=== PATIENT | male | born 1980 | race Caucasian/White ===

== ENCOUNTER 2018-08-15 05:55 | Emergency (ER) | payer SELFPAY ==
[2018-08-15 05:56] VITALS: BP 141/94; PULSE 111; RESP 18; TEMP 38.3; O2SAT 95; BMI 19.5
--- NOTE | 2018-08-15 06:10 | EKG12_ITS ---
Test Reason : CP Blood Pressure : / mmHG Vent. Rate : 115 BPM Atrial Rate : 115 BPM P-R Int : 132 ms QRS Dur : 070 ms QT Int : 242 ms P-R-T Axes : 076 082 073 degrees QTc Int : 334 ms Sinus tachycardia Possible Left atrial enlargement Nonspecific T wave abnormality Abnormal ECG Confirmed by JILLIAN JENSEN, VERA ([id number]), assistant production editor ROCÍO PUENTE ([id number]) on 08/17/2018 9:26:36 AM Referred By: PATRICIA Confirmed By:VERA WALSH MD
--- NOTE | 2018-08-15 06:11 | RAD_ITS ---
STUDY: X-RAY CHEST REASON FOR EXAM: Male, 38 years old. Chest pain and shortness of breath TECHNIQUE: PA and lateral views of the chest. COMPARISON: None. FINDINGS: The lungs are mildly hyperinflated. Lungs are clear. There is no demonstrated pleural abnormality. Normal size heart. Normal mediastinum and ismael. Normal visualized pulmonary arteries. Normal visualized aortic arch and descending thoracic aorta. Normal visualized thoracic spine. Normal visualized ribs, clavicles, and shoulders. There is no demonstrated abnormality of the visualized soft tissue structures of the upper abdomen. RAD/Chest PA and Lateral IMPRESSION: Mildly hyperinflated lungs. No acute airspace disease. Electronically Signed: Roman Myers DO at 6:57 EDT Tel , Service support ,
--- NOTE | 2018-08-15 06:13 | ED.RN ---
NO OLD EKGS
[2018-08-15] MEDS: Acetaminophen 500 MG Tablet 1000 MG PO (06:15)
--- NOTE | 2018-08-15 06:17 | ED.DCSUM_ITS ---
- ER Visit Summary Date of Service: 08/15/18 Chief Complaint: Chest pain History of Present Illness: The patient is a 38 M who presents with chest pain. History is limited as he appears to be under the influence of illicit drugs. He does state that he smoked a blunt. He states that this was sprinkled. He is unsure what else was with this but he states he thinks it was an upper. He was found sleeping on someone's porch. He then complained of chest pain. He states that he has a history of chest pain my whole life. This is been worse for 3 years. It is sharp. It is sometimes worse with a deep breath. It is in the center of his chest. He also complains of shortness of breath. He also states I don't feel good. He is unable to give further history regarding recent illness except that recently he generally has not felt well. He was able to tell me that he has felt like he has had a fever and has had some cough. When asked if he has been sick he said like the flu but did not really provide further specific symptoms. Physical Examination: Temperature 100.9 heart rate 111 blood pressure 141/94 pulse ox 95% Moist mucous membranes Neck supple Heart regular tachycardia Lungs are clear Abdomen soft He is alert he is oriented to month year person place but appears confused Pressured mumbling speech Test Results: EKG shows sinus rhythm at a rate of 115. Chest x-ray on my review shows no acute process, radiology read pending. Labs including CBC BMP troponin normal. Urine drug screen ordered, pending. Emergency Department Course and Treatment: Patient was given Tylenol for fever. This could be due to infectious process given that he does report some recent flulike illness or may be related to agitation from stimulant use. He does not have a leukocytosis. His chest x-ray does not show patient will be signed out to the oncoming physician for reevaluation. I believe as long as his mental status improves he can likely be discharged after period of observation. Treatment Plan: [] Disposition: Pending reevaluation Impression: Chest pain Drug abuse This note was generated with [employer] software. It may contain incorrect words, spelling, and punctuation that were not noted in review of the chart prior to signing
[2018-08-15 06:27] VITALS: BP 142/88; PULSE 115; RESP 19; O2SAT 97
[2018-08-15 06:30] LABS: Absolute Lymphocyte Count 1.56 X10^3/ul (0.83-4.51); Absolute Neutrophil Count 8.9 X10^3/uL (2.0-7.7); Basophil# 0.02 X10^3/uL; Basophil% 0.2 % (0-1); Hematocrit 41.3 % (40-54); Hemoglobin 14.4 g/dl (13.0-16.5); Lymphocyte # 1.56 X10^3/ul (4.0); Lymphocyte % 14.6 % (19-41); Mean Corp Hgb Conc 34.9 g/gl (32-36); Mean Corpuscular Hgb 32.1 pg (27.0-32.0); Mean Corpuscular Volume 92.2 fL (80-94); Mean Platelet Vol. 8.8 fl (6.2-12.0); Monocyte# 0.19 X10^3/uL; Monocyte% 1.8 % (0-10); Neutrophil # 8.92 X10^3/uL (2.7-7.7); Neutrophil % 83.3 % (47-70); Platelet Count 234 K/mm3 (150-450); RBC Distribution Width CV 12.6 % (11.6-14.6); RBC Distribution Width SD 42.6 fl (35.1-43.9); Red Blood Count 4.48 M/mm3 (4.6-6.2); White Blood Count 10.7 K/mm3 (4.4-11.0)
[2018-08-15 06:31] LABS: POSITIVE COUNT NO; POSITIVE DIFFERENTIAL NO; POSITIVE MORPHOLOGY NO
[2018-08-15 06:45] LABS: Anion Gap 11 (5-15); BUN 23 mg/dL (7-18); BUN/Creat Ratio 22.5 RATIO (10-20); Calcium,Total 8.7 mg/dL (8.5-10.1); Chloride 103 mmol/L (98-107); Creatinine, Serum 1.02 mg/dL (0.70-1.30); EST Glomerular Filtration Rate 86 mL/min (>60); Est Glom Filt Rate - Afr Amer 105 mL/min (>60); Estimated Creatinine Clearance 75.78 ml/min; Glucose 91 mg/dL (74-106); Potassium 3.5 mmol/L (3.5-5.1); Sodium Level 140 mmol/L (136-145)
--- NOTE | 2018-08-15 06:52 | ED.DEP ---
ED Disposition - Plan for ED Patient: Instructions: ED Chest Pain NonCardiac, ED Drug Abuse General Referrals: Care Physician,No Primary [Primary Care Provider] -
[2018-08-15 07:11] VITALS: BP 112/78; PULSE 105; RESP 23; O2SAT 96
[2018-08-15 07:33] VITALS: TEMP 37.3
[2018-08-15 08:00] VITALS: BP 110/76; PULSE 100; RESP 22; O2SAT 98
[2018-08-15 08:58] VITALS: BP 113/77; PULSE 96; RESP 23; O2SAT 99
== END 2018-08-15 09:03 | disposition home or self-care (01) ==
PROVIDERS: Emergency Provider Emergency Medicine
DX: R07.9 Chest pain, unspecified (principal); R11.0 Nausea; R05 Cough; R06.00 Dyspnea, unspecified; Z72.0 Tobacco use; F19.10 Other psychoactive substance abuse, uncomplicated
CPT/HCPCS: 71046; 80048; 84484; 85025; 93005; 99285; A4216

== ENCOUNTER 2018-08-18 22:49 | Inpatient (IN) | payer SELFPAY ==
[2018-08-18 22:49] VITALS: BP 114/62; PULSE 109; RESP 16; TEMP 38; O2SAT 97; BMI 19.5
--- NOTE | 2018-08-18 23:04 | CT_ITS ---
HISTORY: PT STATED CHEST PAIN WORSE ON LEFT SIDE TECHNIQUE: Helically acquired images were obtained of the chest following IV contrast as per pulmonary angiogram protocol with 3D reconstructions. A radiation dose optimization technique was used for this scan. IV Contrast dosage and agent: 100 cc Isovue-370 contrast COMPARISON: Two-view chest 08/15/2018 FINDINGS: The main, segmental, and visualized subsegmental pulmonary arteries show normal opacification and appearance. No PE. Thoracic aorta is normal in caliber without evidence of aneurysm or dissection. No pericardial effusion. With comparison to recent chest x-ray, interval worsening with development of left lower lobe large infiltrate with consolidation and right middle lobe moderate infiltrate. Additional right lower lobe and lingular segment small infiltrates. No pleural effusion seen. Bilateral hilar mildly enlarged lymph nodes, more so on the left in keeping with reactive nodes. No axillary lymph enlargement. Bones: No acute osseous abnormality. CT/CTA Chest W/WO Contrast IMPRESSION: 1. New onset bilateral pulmonary infiltrates including left lower lobe large infiltrate with consolidation. 2. No PE. 3. Infiltrates should be followed to radiographic resolution. Individualized dose optimization techniques were used for this CT. at 0129 Reported and signed by: Kiran Ragsdale MD Electronically Signed: Kiran Ragsdale, at 1:28 EDT Tel , Service support ,
[2018-08-18 23:45] LABS: Absolute Lymphocyte Count 0.99 X10^3/ul (0.83-4.51); Absolute Neutrophil Count 14.3 X10^3/uL (2.0-7.7); Basophil# 0.03 X10^3/uL; Basophil% 0.2 % (0-1); Eosinophil# 0.01 X10^3/uL; Eosinophils% 0.1 % (0-5); Hemoglobin 13.5 g/dl (13.0-16.5); Lymphocyte # 0.99 X10^3/ul (4.0); Mean Corp Hgb Conc 34.6 g/gl (32-36); Mean Corpuscular Hgb 32.1 pg (27.0-32.0); Mean Corpuscular Volume 92.9 fL (80-94); Mean Platelet Vol. 9.6 fl (6.2-12.0); Monocyte# 1.01 X10^3/uL; Monocyte% 6.2 % (0-10); Platelet Count 284 K/mm3 (150-450); RBC Distribution Width CV 12.3 % (11.6-14.6); RBC Distribution Width SD 40.8 fl (35.1-43.9); White Blood Count 16.4 K/mm3 (4.4-11.0)
[2018-08-18] MEDS: Ondansetron 4 MG/2 ML Vial IV (23:51)
[2018-08-18] MEDS: Morphine 4 MG/ML Syringe IV (23:52)
[2018-08-19] VITALS (9 sets, daily range): BP systolic 98–110; BP diastolic 53–68; PULSE 86–98; RESP 16–18; TEMP 36.8–36.9; O2SAT 95–99; BMI 18.8
[2018-08-19 00:05] LABS: POSITIVE COUNT NO; POSITIVE DIFFERENTIAL NO; POSITIVE MORPHOLOGY YES
[2018-08-19 00:06] LABS: Differential Indicated SCAN CRITERIA MET
[2018-08-19 00:13] LABS: Anion Gap 7 (5-15); BUN 14 mg/dL (7-18); BUN/Creat Ratio 16.7 RATIO (10-20); Calcium,Total 8.8 mg/dL (8.5-10.1); Chloride 101 mmol/L (98-107); Creatinine, Serum 0.84 mg/dL (0.70-1.30); EST Glomerular Filtration Rate 108 mL/min (>60); Est Glom Filt Rate - Afr Amer 131 mL/min (>60); Estimated Creatinine Clearance 91.96 ml/min; Glucose 101 mg/dL (74-106); Potassium 3.4 mmol/L (3.5-5.1); Sodium Level 136 mmol/L (136-145)
[2018-08-19 00:30] LABS: Reactive Lymphocyte RARE
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
[2018-08-19] MEDS: Ceftriaxone 1 GM/50 ML BAG IV ×3 (02:59→21:03)
[2018-08-19 03:35] LABS: Lactic Acid 0.8 mmol/L (0.4-2.0)
[2018-08-19] MEDS: Acetaminophen 500 MG Tablet PO ×3 (06:14→23:33)
[2018-08-19] MEDS: Potassium Chloride 40 MEQ in 0.9% Normal Saline 1,000 ML 100 MEQ IV (06:14)
[2018-08-19] MEDS: guaiFENesin 1,200 MG Tablet 1200 MG PO ×2 (06:15→21:08)
[2018-08-19 06:32] LABS: Absolute Lymphocyte Count 1.68 X10^3/ul (0.83-4.51); Absolute Neutrophil Count 9.5 X10^3/uL (2.0-7.7); Basophil# 0.02 X10^3/uL; Basophil% 0.2 % (0-1); Eosinophil# 0.05 X10^3/uL; Eosinophils% 0.4 % (0-5); Hematocrit 33.1 % (40-54); Hemoglobin 11.6 g/dl (13.0-16.5); Lymphocyte # 1.68 X10^3/ul (4.0); Lymphocyte % 13.7 % (19-41); Mean Corpuscular Volume 91.4 fL (80-94); Mean Platelet Vol. 9.4 fl (6.2-12.0); Monocyte# 0.93 X10^3/uL; Monocyte% 7.6 % (0-10); Neutrophil # 9.54 X10^3/uL (2.7-7.7); Neutrophil % 77.9 % (47-70); Platelet Count 220 K/mm3 (150-450); RBC Distribution Width CV 12.6 % (11.6-14.6); RBC Distribution Width SD 42.6 fl (35.1-43.9); Red Blood Count 3.62 M/mm3 (4.6-6.2); White Blood Count 12.3 K/mm3 (4.4-11.0)
[2018-08-19 06:40] LABS: POSITIVE COUNT NO; POSITIVE DIFFERENTIAL NO; POSITIVE MORPHOLOGY NO
[2018-08-19] MEDS: Ipratropium/Albuterol Sulfate 3 ML AMPUL.NEB INHALATION ×3 (07:26→19:22)
[2018-08-19] MEDS: oxyCODONE 5 MG Tablet PO ×3 (09:23→23:33)
[2018-08-20] VITALS (8 sets, daily range): BP systolic 104–123; BP diastolic 66–77; PULSE 92–104; RESP 16–20; TEMP 36.7–37.1; O2SAT 96–100
[2018-08-20] MEDS: Ipratropium/Albuterol Sulfate 3 ML AMPUL.NEB INHALATION ×4 (01:25→18:42)
[2018-08-20] MEDS: Acetaminophen 500 MG Tablet PO ×3 (05:35→23:45)
[2018-08-20] MEDS: oxyCODONE 5 MG Tablet PO (05:35)
[2018-08-20 06:17] LABS: Hematocrit 33.7 % (40-54); Hemoglobin 11.3 g/dl (13.0-16.5); Mean Corp Hgb Conc 33.5 g/gl (32-36); Mean Corpuscular Hgb 31.4 pg (27.0-32.0); Mean Corpuscular Volume 93.6 fL (80-94); Platelet Count 297 K/mm3 (150-450); RBC Distribution Width CV 12.3 % (11.6-14.6); RBC Distribution Width SD 40.7 fl (35.1-43.9); White Blood Count 9.9 K/mm3 (4.4-11.0)
[2018-08-20 06:36] LABS: Anion Gap 6 (5-15); BUN 6 mg/dL (7-18); BUN/Creat Ratio 11.5 RATIO (10-20); Calcium,Total 8.2 mg/dL (8.5-10.1); Chloride 107 mmol/L (98-107); Creatinine, Serum 0.52 mg/dL (0.70-1.30); EST Glomerular Filtration Rate 186 mL/min (>60); Est Glom Filt Rate - Afr Amer 225 mL/min (>60); Estimated Creatinine Clearance 143.51 ml/min; Glucose 103 mg/dL (74-106); Potassium 3.7 mmol/L (3.5-5.1); Sodium Level 139 mmol/L (136-145)
[2018-08-20 06:40] LABS: Scan Indicated on CBC? Y/N NO
--- NOTE | 2018-08-20 07:51 | PCM.PN.HOSP ---
Patient Problems: Active and Suspected Problems (Last Updated 08/19/18 @ 08:21 by Joaquin Dejesus MD) Community acquired pneumonia (Acute) Subjective: Patient with continued pleuritic discomfort, fevers however this is improved since initial presentation. Patient ambulating the halls with some coughing but no market desaturations. Discussed patient case with CM/SW, not able to be at the [facility] or other facility secondary to prior behavioral issues and currently on probation therefore not able to leave the state. Sputum culture currently pending with prelim staph aureus thus initial plan for discharge held in case MRSA pneumonia although WBC has improved and clinical presentation has improved with current regimen. Patient denies fevers, chills, nausea, emesis, abdominal pain. Objective: Physical Examination: General: awake, alert, oriented x 3 and cooperative, seated upright in bed in no apparent distress, fatigued appearing, warm to touch. Skin: Flushed color, turgor, no icterus, cyanosis. HEENT: AT/NC, EOMI, PERRLA, dry MM. Lungs: Diminished BS BL, mildly rhonchorous BL bases, moderate effort, no rales or wheezing. Heart: Regular rate and rhythm; no gallop, rub audible. Abdomen: soft, NTTP, ND, normal BS. Extremities: no cyanosis, clubbing, or edema. Neurological: patient awake, alert, oriented x 3; cognitive function intact; pupils equally reactive to light and accomodation; cranial nerves II-XII grossly normal, moving all 4 extremities, no focal deficits, strength moderately globally decreased secondary to acute presentation. Psychiatric: affect appears fatigued, no acute evidence of depressive or anxiety feelings. Vitals/I&O's: Vital Signs Temp Pulse Resp BP Pulse Ox 98.1 F 96 16 104/67 98 08/20/18 02:35 08/20/18 06:46 08/20/18 06:46 08/20/18 02:35 08/20/18 06:46 Oxygen Delivery Method Room Air Weight: 117 lb 4.575 oz Body Mass Index (BMI) 18.8 Intake and Output for Last 24 Hours 08/18/18 08/19/18 08/20/18 23:59 23:59 23:59 Intake Total 2347 / 2347 240 / 240 Balance 2347 / 2347 240 / 240 Microbiology Past 72 Hours 08/19/18 16:51 Urine, Clean Catch Streptococcus pneumoniae Antigen (M - Final 08/19/18 16:51 Urine, Clean Catch Legionella Antigen - Final 08/19/18 14:35 Sputum, Expectorated/Coughed Gram Stain - Final Laboratory Results 08/20/18 05:55: WBC 9.9, RBC 3.60 L, Hgb 11.3 L, Hct 33.7 L, MCV 93.6, MCH 31.4, MCHC 33.5, RDW 12.3, RDW Differential 40.7, Plt Count 297, MPV 9.0 08/20/18 05:55: Sodium 139, Potassium 3.7, Chloride 107, Carbon Dioxide 26.0, Anion Gap 6, BUN 6 L, Creatinine 0.52 L, Estim Creat Clear Calc 143.51, Est GFR (MDRD) Af Amer 225, Est GFR (MDRD) Non-Af 186, BUN/Creatinine Ratio 11.5, Glucose 103, Calcium 8.2 L Current Medications Acetaminophen (Tylenol) 500 mg PO Q6 [facility] Last Admin: 08/20/18 05:35 Dose: 500 mg Albuterol Sulfate (Ventolin Aerosols) 2.5 mg INHALATION Q2H PRN PRN PRN Reason: SHORTNESS OF BREATH Albuterol/Ipratropium (Duoneb) 3 ml INHALATION Q6H.RT [facility] Last Admin: 08/20/18 06:46 Dose: 3 ml Bisacodyl (Dulcolax) 5 mg PO DAILY PRN PRN PRN Reason: Constipation Guaifenesin (Mucinex) 1,200 mg PO BID [facility] Last Admin: 08/19/18 21:08 Dose: 1,200 mg Azithromycin 500 mg/ Dextrose 255 mls @ 250 mls/hr IV Q24@2200 [facility] Stop: 08/21/18 23:02 Last Admin: 08/19/18 22:18 Dose: 250 mls/hr Ceftriaxone Sodium (Rocephin) 1 gm in 50 mls @ 100 mls/hr IV Q12 [facility] Last Admin: 08/19/18 21:03 Dose: 100 mls/hr Magnesium Hydroxide (Milk Of Magnesia) 30 ml PO DAILY PRN PRN PRN Reason: Constipation Nicotine (Nicoderm Cq (Pbkc)) 14 mg TRANSDERM. DAILY [facility] Last Admin: 08/19/18 11:42 Dose: 14 mg Ondansetron HCl (Zofran) 4 mg IV Q8H PRN PRN PRN Reason: NAUSEA Oxycodone HCl (Oxyir) 5 mg PO Q6H PRN PRN PRN Reason: SEVERE PAIN (6-10/10) Last Admin: 08/20/18 05:35 Dose: 5 mg Sodium Chloride () 5 - 15 ml IV UD PRN PRN Reason: SALINE FLUSH Medical Necessity - Tobacco Use Smoking Status: Current every day smoker Tobacco Use: Cigarettes Assessment/Plan All Active Problems (Last Updated 08/19/18 @ 08:21 by Joaquin Dejesus MD) Community acquired pneumonia (Acute) The patient is a 38 y/o M w/ PMHx: Tobacco use, Cannabis Use, Hx HTN no on regimen, Homeless who presents to the [facility] ED on 08/20/18 with history of progressively worsening chest discomfort starting approximately 3 days ago, substernal, 8 out of 10 in severity, nonradiating, worse with movement, increased respiratory effort and with coughing, productive cough, fever, chills, malaise and decreased appetite. (1) Acute Sepsis secondary to BL LE Possible GP Organism, Community Acquired Pneumonia: CTPA w/ new onset bilateral pulmonary infiltrates including left lower lobe large infiltrate with consolidation, no evidence of PE. Admission CBC w/ WBC 16.4 with L shift. Admitted to PCU as MS, maintain on oxygen with wean as tolerated to room air, continue ATC duonebs, PRN albuterol, maintained on IV Rocephin and Azithromycin, HOB, IS parameters w/ pending sputum cultures however preliminary with GP organism and with history of polysubstance abuse concerns for possible MRSA, will defer discharge initially planned for today given clinical improvement to await cx, negative urine antigens. Bld cx x 2 obtained in the ED. (2) Hypokalemia: Admission K+ 3.4, supplementation given, repeat level corrected, 3.7. (3) Tobacco Abuse: Encouraged cessation, inpatient consultation per RT, NR if desired. (4) Polysubstance abuse: CM Consulted for homelessness and history of polysubstance abuse, hepatitis panel and HIV pending. (5) DVT Prophylaxis: Low risk, ambulation. Code Visit Inpatient E&M: 60894 Subs Hosp L2
--- NOTE | 2018-08-20 07:56 | PN_ITS ---
Patient Problems: Active and Suspected Problems (Last Updated 08/19/18 @ 08:21 by Joaquin Dejesus MD) Community acquired pneumonia (Acute) Subjective: Patient with continued pleuritic discomfort, fevers however this is improved since initial presentation. Patient ambulating the halls with some coughing but no market desaturations. Discussed patient case with CM/SW, not able to be at the [facility] or other facility secondary to prior behavioral issues and currently on probation therefore not able to leave the state. Sputum culture currently pending with prelim staph aureus thus initial plan for discharge held in case MRSA pneumonia although WBC has improved and clinical presentation has improved with current regimen. Patient denies fevers, chills, nausea, emesis, abdominal pain. Objective: Physical Examination: General: awake, alert, oriented x 3 and cooperative, seated upright in bed in no apparent distress, fatigued appearing, warm to touch. Skin: Flushed color, turgor, no icterus, cyanosis. HEENT: AT/NC, EOMI, PERRLA, dry MM. Lungs: Diminished BS BL, mildly rhonchorous BL bases, moderate effort, no rales or wheezing. Heart: Regular rate and rhythm; no gallop, rub audible. Abdomen: soft, NTTP, ND, normal BS. Extremities: no cyanosis, clubbing, or edema. Neurological: patient awake, alert, oriented x 3; cognitive function intact; pupils equally reactive to light and accomodation; cranial nerves II-XII grossly normal, moving all 4 extremities, no focal deficits, strength moderately globally decreased secondary to acute presentation. Psychiatric: affect appears fatigued, no acute evidence of depressive or anxiety feelings. Vitals/I&O's: Vital Signs Temp Pulse Resp BP Pulse Ox 98.1 F 96 16 104/67 98 08/20/18 02:35 08/20/18 06:46 08/20/18 06:46 08/20/18 02:35 08/20/18 06:46 Oxygen Delivery Method Room Air Weight: 117 lb 4.575 oz Body Mass Index (BMI) 18.8 Intake and Output for Last 24 Hours 08/18/18 08/19/18 08/20/18 23:59 23:59 23:59 Intake Total 2347 / 2347 240 / 240 Balance 2347 / 2347 240 / 240 Microbiology Past 72 Hours 08/19/18 16:51 Urine, Clean Catch Streptococcus pneumoniae Antigen (M - Final 08/19/18 16:51 Urine, Clean Catch Legionella Antigen - Final 08/19/18 14:35 Sputum, Expectorated/Coughed Gram Stain - Final Laboratory Results 08/20/18 05:55: WBC 9.9, RBC 3.60 L, Hgb 11.3 L, Hct 33.7 L, MCV 93.6, MCH 31.4, MCHC 33.5, RDW 12.3, RDW Differential 40.7, Plt Count 297, MPV 9.0 08/20/18 05:55: Sodium 139, Potassium 3.7, Chloride 107, Carbon Dioxide 26.0, Anion Gap 6, BUN 6 L, Creatinine 0.52 L, Estim Creat Clear Calc 143.51, Est GFR (MDRD) Af Amer 225, Est GFR (MDRD) Non-Af 186, BUN/Creatinine Ratio 11.5, Glucose 103, Calcium 8.2 L Current Medications Acetaminophen (Tylenol) 500 mg PO Q6 [facility] Last Admin: 08/20/18 05:35 Dose: 500 mg Albuterol Sulfate (Ventolin Aerosols) 2.5 mg INHALATION Q2H PRN PRN PRN Reason: SHORTNESS OF BREATH Albuterol/Ipratropium (Duoneb) 3 ml INHALATION Q6H.RT [facility] Last Admin: 08/20/18 06:46 Dose: 3 ml Bisacodyl (Dulcolax) 5 mg PO DAILY PRN PRN PRN Reason: Constipation Guaifenesin (Mucinex) 1,200 mg PO BID [facility] Last Admin: 08/19/18 21:08 Dose: 1,200 mg Azithromycin 500 mg/ Dextrose 255 mls @ 250 mls/hr IV Q24@2200 [facility] Stop: 08/21/18 23:02 Last Admin: 08/19/18 22:18 Dose: 250 mls/hr Ceftriaxone Sodium (Rocephin) 1 gm in 50 mls @ 100 mls/hr IV Q12 [facility] Last Admin: 08/19/18 21:03 Dose: 100 mls/hr Magnesium Hydroxide (Milk Of Magnesia) 30 ml PO DAILY PRN PRN PRN Reason: Constipation Nicotine (Nicoderm Cq (Pbkc)) 14 mg TRANSDERM. DAILY [facility] Last Admin: 08/19/18 11:42 Dose: 14 mg Ondansetron HCl (Zofran) 4 mg IV Q8H PRN PRN PRN Reason: NAUSEA Oxycodone HCl (Oxyir) 5 mg PO Q6H PRN PRN PRN Reason: SEVERE PAIN (6-10/10) Last Admin: 08/20/18 05:35 Dose: 5 mg Sodium Chloride () 5 - 15 ml IV UD PRN PRN Reason: SALINE FLUSH Medical Necessity - Tobacco Use Smoking Status: Current every day smoker Tobacco Use: Cigarettes Assessment/Plan All Active Problems (Last Updated 08/19/18 @ 08:21 by Joaquin Dejesus MD) Community acquired pneumonia (Acute) The patient is a 38 y/o M w/ PMHx: Tobacco use, Cannabis Use, Hx HTN no on regimen, Homeless who presents to the [facility] ED on 08/20/18 with history of progressively worsening chest discomfort starting approximately 3 days ago, substernal, 8 out of 10 in severity, nonradiating, worse with movement, increased respiratory effort and with coughing, productive cough, fever, chills, malaise and decreased appetite. (1) Acute Sepsis secondary to BL LE Possible GP Organism, Community Acquired Pneumonia: CTPA w/ new onset bilateral pulmonary infiltrates including left lower lobe large infiltrate with consolidation, no evidence of PE. Admission CBC w/ WBC 16.4 with L shift. Admitted to PCU as MS, maintain on oxygen with wean as tolerated to room air, continue ATC duonebs, PRN albuterol, maintained on IV Rocephin and Azithromycin, HOB, IS parameters w/ pending sputum cultures however preliminary with GP organism and with history of polysubstance abuse concerns for possible MRSA, will defer discharge initially planned for today given clinical improvement to await cx, negative urine antigens. Bld cx x 2 obtained in the ED. (2) Hypokalemia: Admission K+ 3.4, supplementation given, repeat level corrected, 3.7. (3) Tobacco Abuse: Encouraged cessation, inpatient consultation per RT, NR if desired. (4) Polysubstance abuse: CM Consulted for homelessness and history of polys ubstance abuse, hepatitis panel and HIV pending. (5) DVT Prophylaxis: Low risk, ambulation. Code Visit Inpatient E&M: 67171 Subs Hosp L2
[2018-08-20] MEDS: guaiFENesin 1,200 MG Tablet 1200 MG PO ×2 (09:50→22:48)
[2018-08-20] MEDS: Ceftriaxone 1 GM/50 ML BAG IV ×2 (09:51→22:47)
[2018-08-20] MEDS: 0.9% NaCl Peripheral Flush Adult/Peds IV ×4 (09:51→22:50)
[2018-08-20 10:05] LABS: HIV - WCH Non-Reactive (Nonreactive)
--- NOTE | 2018-08-20 10:47 | CASEMGMT ---
SW was asked to see patient as he is homeless. He is also listed as self pay. SW noted he uses Marijuana and Speed. SW met with patient, introduced self and role at [facility]. Patient said he was at [facility], but he was gone 1 night because he was in the hospital and they wouldn't let him back. SW asked him about drug use and he said he doesn't use regularly. They asked him if he uses drugs so he told them the truth. He denies need for any treatment resources. SW asked him about where he will go and he said he does not know. SW asked him about going to shelters in other [facility]. He said he is not sure he could as he is on Probation and he has a court hearing Mon08-22-18. He also does not know how he would get there or get back. SW told him SW will check with [facility] and probation to see if he can go to a [facility] [place]. SW also let patient know [facility] has a prescription assistance program where we could help him with his discharge medications one time. ABBE called [facility] and spoke with Brooke. She said that he was there one night and he caused quite a bit of trouble. He would not be allowed to come back for awhile since he was there recently and left. She is not sure they would let him come back as he caused a lot of trouble. ABBE called [facility] Probation and spoke with Officer Denise. He said patient should not leave the [facility] as he has a court hearing Monday the . He said if patient has a way to get back for the hearing that is fine. Doubtful patient would have a ride back as he said he doesn't have a ride there. ABBE will let patient know the information ABBE found out. SW will also let him know that his medications will be available down at [facility] Pharmacy at no cost to him. SW will remind him this is a once a year program. SW will also give him information on [place] [facility] and [facility]. Catherine WINCHESTER CASTING SORTER
--- NOTE | 2018-08-20 11:01 | DCINST_ITS ---
- Discharge Diagnoses Current Active Problems: Current Active and Chronic Problems (Last Updated 08/19/18 @ 08:21 by Joaquin Dejesus MD) (1) Acute Sepsis secondary to Community Acquired Pneumonia (2) Hypokalemia (3) Tobacco Abuse (4) Polysubstance abuse You will use the following diet at home:: Regular Your food should be the consistency of: Regular Your liquids should be the consistency of: Regular/Thin Discharge Activity: - - Avoid aggressive activity until completion antibiotic therapy and no furthe dyspnea. Call your doctor if you observe: Fever of 101 or Higher, Inability to urinate, Inability to have a bowel movement, Shortness of breath, Dizziness, Fainting spells, Chest pain, Uncontrolled pain Instructions: Discharge Instructions for Pneumonia, Pneumonia Treatment, Preventing Pneumonia, What Is Pneumonia?, Why Do You Smoke?, Planning to Quit Smoking, Getting Support for Quitting Smoking, Coping with Smoking Withdrawal Additional Instructions: During the admission HIV and hepatitis were obtained and pending upon your discharge. Please follow-up on these results with [facility] at your follow-up evaluation. Pending Tests on Discharge: HIV, hepatitis panel. Please follow-up on these results which are pending at your discharge with the [facility] at evaluation post-discharge. Please call the clinic to arrange appointment. Allergies/Adverse Reactions: Allergies seasonal Allergy (Uncoded 08/18/18 22:52) Other Medications to take at Discharge Albuterol IH (ProAir) [Proair Hfa] 1 - 2 puff INHALATION Q4H PRN PRN #1 inhaler 08/20/18 Azithromycin [Zithromax Tri-Brad] 500 mg PO DAILY #1 tablet 08/20/18 Cefdinir [Omnicef [equiv]] 300 mg PO Q12H #10 capsule 08/20/18 Guaifenesin [Mucinex] 1,200 mg PO BID #20 tablet 08/20/18 Nicotine [Nicoderm] 14 mg TRANSDERM. DAILY #20 patch 08/20/18 The following prescriptions were given: Albuterol IH (ProAir) [Proair Hfa] 1 - 2 puff INHALATION Q4H PRN PRN #1 inhaler PRN Reason: dyspnea, wheezing Azithromycin [Zithromax Tri-Brad] 500 mg PO DAILY #1 tablet Cefdinir [Omnicef [equiv]] 300 mg PO Q12H #10 capsule Nicotine [Nicoderm] 14 mg TRANSDERM. DAILY #20 patch Guaifenesin [Mucinex] 1,200 mg PO BID #20 tablet Please follow up with your Primary Care Physician [facility]: [facility] within 3-5 days to review admission, establish, f/u. Test Results: Test results from this visit will be discussed in further detail at your follow-up appointment, if applicable. Proposed Discharge Date: 08/20/18
--- NOTE | 2018-08-20 11:02 | PCM.DC.SUM ---
Discharge Date and Diagnosis - Problem List Patient Problems: Active and Suspected Problems (Last Updated 08/19/18 @ 08:21 by Joaquin Dejesus MD) Community acquired pneumonia (Acute) Date of Admission: 08/19/18 - Primary Discharge Diagnosis Active and Suspected Problems (Last Updated 08/19/18 @ 08:21 by Joaquin Dejesus MD) Community acquired pneumonia (Acute) Hospital Course and Treatment Summary of Care Provided: The patient is a 38 year old M [] Patient Problems: Active and Suspected Problems (Last Updated 08/19/18 @ 08:21 by Joaquin Dejesus MD) Community acquired pneumonia (Acute) - Physical Exam Vital Signs Temp Pulse Resp BP Pulse Ox 98.6 F 101 H 18 118/66 100 08/20/18 09:04 08/20/18 09:04 08/20/18 09:04 08/20/18 09:04 08/20/18 09:04 Oxygen Delivery Method Room Air Weight: 117 lb 4.575 oz Body Mass Index (BMI) 18.8 Intake and Output for Last 24 Hours 08/18/18 08/19/18 08/20/18 23:59 23:59 23:59 Intake Total 2347 / 2347 240 / 240 Balance 2347 / 2347 240 / 240 Microbiology Past 72 Hours 08/19/18 16:51 Streptococcus pneumoniae Antigen (M - Final Urine, Clean Catch 08/19/18 16:51 Legionella Antigen - Final Urine, Clean Catch 08/19/18 14:35 Gram Stain - Final Sputum, Expectorated/Coughed Laboratory Tests Past 24 Hrs 08/20/18 08/20/18 08/20/18 05:55 05:55 05:55 WBC 9.9 RBC 3.60 L Hgb 11.3 L Hct 33.7 L MCV 93.6 MCH 31.4 MCHC 33.5 RDW 12.3 RDW Differential 40.7 Plt Count 297 MPV 9.0 Sodium 139 Potassium 3.7 Chloride 107 Carbon Dioxide 26.0 Anion Gap 6 BUN 6 L Creatinine 0.52 L Estim Creat Clear Calc 143.51 Est GFR (MDRD) Af Amer 225 Est GFR (MDRD) Non-Af 186 BUN/Creatinine Ratio 11.5 Glucose 103 Calcium 8.2 L Hepatitis A IgM Ab Pending Hepatitis A Ab Total Pending Hep Bs Antigen Pending Hep B Core Total Ab Pending Hep B Core IgM Ab Pending HIV 1&2 Antibody 08/20/18 05:55 WBC RBC Hgb Hct MCV MCH MCHC RDW RDW Differential Plt Count MPV Sodium Potassium Chloride Carbon Dioxide Anion Gap BUN Creatinine Estim Creat Clear Calc Est GFR (MDRD) Af Amer Est GFR (MDRD) Non-Af BUN/Creatinine Ratio Glucose Calcium Hepatitis A IgM Ab Hepatitis A Ab Total Hep Bs Antigen Hep B Core Total Ab Hep B Core IgM Ab HIV 1&2 Antibody Non-Reactive Discharge Activity: - - Avoid aggressive activity until completion antibiotic therapy and no furthe dyspnea. Call your doctor if you observe: Fever of 101 or Higher, Inability to urinate, Inability to have a bowel movement, Shortness of breath, Dizziness, Fainting spells, Chest pain, Uncontrolled pain Home Medications: Medications to take at Discharge Albuterol IH (ProAir) [Proair Hfa] 1 - 2 puff INHALATION Q4H PRN PRN #1 inhaler 08/20/18 Azithromycin [Zithromax Tri-Brad] 500 mg PO DAILY #1 tablet 08/20/18 Cefdinir [Omnicef [equiv]] 300 mg PO Q12H #10 capsule 08/20/18 Guaifenesin [Mucinex] 1,200 mg PO BID #20 tablet 08/20/18 Nicotine [Nicoderm] 14 mg TRANSDERM. DAILY #20 patch 08/20/18 Following Prescrptions Were Given to Patient: Albuterol IH (ProAir) [Proair Hfa] 1 - 2 puff INHALATION Q4H PRN PRN #1 inhaler PRN Reason: dyspnea, wheezing Azithromycin [Zithromax Tri-Brad] 500 mg PO DAILY #1 tablet Cefdinir [Omnicef [equiv]] 300 mg PO Q12H #10 capsule Nicotine [Nicoderm] 14 mg TRANSDERM. DAILY #20 patch Guaifenesin [Mucinex] 1,200 mg PO BID #20 tablet Please follow up with your Primary Care Physician [facility] [place] [facility] within 3-5 days to review admission, establish, f/u. Patient Instructions: What Is Pneumonia?, Preventing Pneumonia, Pneumonia Treatment, Why Do You Smoke?, Planning to Quit Smoking, Getting Support for Quitting Smoking, Coping with Smoking Withdrawal, Discharge Instructions for Pneumonia Medical Necessity - Tobacco Use Smoking Status: Current every day smoker Tobacco Use: Cigarettes
--- NOTE | 2018-08-20 11:28 | CASEMGMT ---
SW also gave patient a list of free meals served in [facility]. Patient said he was talking to his grandma earlier and was waiting on her to call back. Catherine WINCHESTER MSW
[2018-08-20] MEDS: Ketorolac 30 MG/ML Syringe IV ×2 (13:55→22:48)
--- NOTE | 2018-08-21 01:33 | PCM.PN.BLA ---
Progress Note Nurse reported blood cultures was positive for gram positive cocci in clusters. Patient is currently on ceftriaxone and azithromycin. Also noted that final Gram stain of sputum showed Streptococcus areas and alpha hemolytic strep. We will add vancomycin IV to his regimen. Will start with loading dose. Pharmacy to dose thereafter. Of note patient has a history of drug abuse.
[2018-08-21 02:28] VITALS: BP 116/66; PULSE 84; RESP 16; TEMP 36.7; O2SAT 93
[2018-08-21 03:06] LABS: HEPATITIS B SURFACE AG Negative (Negative); Hepatitis A AB, Total Negative (Negative); Hepatitis A IgM Antibody Negative (Negative); Hepatitis B Core AB IgM Negative (Negative); Hepatitis B Core Ab Total Negative (Negative); Hepatitis C Ab <0.1 s/co ratio (0.0-0.9)
--- NOTE | 2018-08-21 03:11 | PCM.RX.CS ---
Consult Pharmacy has been consulted to manage selected antiobiotic: Vancomycin Type of Consult: New start Suspected Infection: Pneumonia Prior Doses of Antibiotics Received/Current Regimen: Medications Vancomycin HCl 750 mg/ Sodium (Chloride) 265 mls @ 250 mls/hr IV Q8H RUBY Vancomycin HCl 1,250 mg/ (Sodium Chloride) 275 mls @ 167 mls/hr IV X1 ONE Stop: 08/21/18 03:38 Last Admin: 08/21/18 03:03 Dose: 167 mls/hr Labs: Sodium 139 mmol/L (136-145) 08/20/18 05:55 Potassium 3.7 mmol/L (3.5-5.1) 08/20/18 05:55 Chloride 107 mmol/L (98-107) 08/20/18 05:55 Carbon Dioxide 26.0 mmol/L (21.0-32.0) 08/20/18 05:55 Anion Gap 6 (5-15) 08/20/18 05:55 BUN 6 mg/dL (7-18) L 08/20/18 05:55 Creatinine 0.52 mg/dL (0.70-1.30) L 08/20/18 05:55 Est GFR (MDRD) Af Amer 225 mL/min (>60) 08/20/18 05:55 Est GFR (MDRD) Non-Af 186 mL/min (>60) 08/20/18 05:55 BUN/Creatinine Ratio 11.5 RATIO (10-20) 08/20/18 05:55 Glucose 103 mg/dL (74-106) 08/20/18 05:55 Microbiology: Microbiology 08/19/18 08:25 Blood Culture (Wb) - Anticubital Left Blood Culture - Preliminary 08/19/18 14:35 Sputum, Expectorated/Coughed Gram Stain - Final 08/19/18 14:35 Sputum, Expectorated/Coughed Respiratory Culture - Preliminary Staphylococcus aureus Alpha Hemolytic Streptococcus 08/19/18 16:51 Urine, Clean Catch Streptococcus pneumoniae Antigen (M - Final 08/19/18 16:51 Urine, Clean Catch Legionella Antigen - Final Weight used for dosin.2 kg Estimated Creatinine Clearance: 143 Goal Trough: 15-20 mcg/mL Pharmacy Plan for Drug Dosing: Pharmacy Service will continue to monitor and adjust dosing as required. Follow-Up Labs: Trough Vancomycin Labs to be done on [date and time ordered]: 08/22/18 @0234
[2018-08-21] MEDS: Acetaminophen 500 MG Tablet PO ×3 (06:51→19:15)
[2018-08-21] MEDS: Ketorolac 30 MG/ML Syringe IV ×3 (06:52→23:04)
[2018-08-21] MEDS: 0.9% NaCl Peripheral Flush Adult/Peds IV (06:52)
[2018-08-21 06:54] VITALS: BP 108/71; PULSE 82; RESP 16; TEMP 36.8; O2SAT 98
--- NOTE | 2018-08-21 07:24 | PN_ITS ---
Patient Problems: Active and Suspected Problems (Last Updated 08/19/18 @ 08:21 by Joaquin Dejesus MD) Community acquired pneumonia (Acute) MRSA bacteremia (Acute) Subjective: Patient with no acute events overnight per self and per nursing report. Patient remains afebrile. States that he has had less dyspnea, less pleuritic dis comfort and less coughing but still very fatigued, malaise, decreased intake. Viewed recent findings that sputum did result with MRSA as well as streptococcal pneumonia in addition to admission ED blood cultures notable for MRSA additionally. Infectious disease physician consulted and evaluated patient. Repeat blood cultures were requested as well as echocardiogram especially given patient drug abuse history for possible endocarditis. Patient denies recurrent fevers, chills, nausea, emesis, abdominal pain, worsened chest pain or worsened dyspnea. Objective: Physical Examination: General: awake, alert, oriented x 3 and cooperative, seated upright in bed in no apparent distress, fatigued appearing, moving better than day prior. Skin: Normal color, turgor, no icterus, cyanosis. HEENT: AT/NC, EOMI, PERRLA, improved MMM. Lungs: Diminished BS BL, mildly rhonchorous BL bases, moderate effort, no rales or wheezing. Heart: Regular rate and rhythm; no gallop, rub audible, ?SM. Abdomen: soft, NTTP, ND, normal BS. Extremities: no cyanosis, clubbing, or edema. Neurological: patient awake, alert, oriented x 3; cognitive function intact; pupils equally reactive to light and accomodation; cranial nerves II-XII grossly normal, moving all 4 extremities, no focal deficits, strength moderately globally decreased secondary to acute presentation. Psychiatric: affect appears fatigued, no acute evidence of depressive or anxiety feelings. Vitals/I&O's: Vital Signs Temp Pulse Resp BP Pulse Ox 98.2 F 82 16 108/71 98 08/21/18 06:54 08/21/18 06:54 08/21/18 06:54 08/21/18 06:54 08/21/18 06:54 Oxygen Delivery Method Room Air Weight: 117 lb 4.575 oz Body Mass Index (BMI) 18.8 Intake and Output for Last 24 Hours 08/19/18 08/20/18 08/21/18 23:59 23:59 23:59 Intake Total 2347 / 2347 1138 / 1138 690 / 690 Balance 2346 / 2347 1138 / 1138 690 / 690 Microbiology Past 72 Hours 08/19/18 08:25 Blood Culture (Wb) - Anticubital Left Bacteria Detection (PCR) - Preliminary Staphylococcus aureus 08/19/18 08:25 Blood Culture (Wb) - Anticubital Left Blood Culture - Preliminary Staphylococcus aureus 08/19/18 14:35 Sputum, Expectorated/Coughed Gram Stain - Final 08/19/18 14:35 Sputum, Expectorated/Coughed Respiratory Culture - Preliminar y Staphylococcus aureus Alpha Hemolytic Streptococcus 08/19/18 16:51 Urine, Clean Catch Streptococcus pneumoniae Antigen (M - Final 08/19/18 16:51 Urine, Clean Catch Legionella Antigen - Final Laboratory Results 08/20/18 05:55: Hepatitis A IgM Ab Pending, Hepatitis A Ab Total Pending, Hep Bs Antigen Pending, Hep B Core Total Ab Pending, Hep B Core IgM Ab Pending 08/20/18 05:55: HIV 1&2 Antibody Non-Reactive Current Medications Acetaminophen (Tylenol) 500 mg PO Q6 [facility] Last Admin: 08/21/18 06:51 Dose: 500 mg Albuterol Sulfate (Ventolin Aerosols) 2.5 mg INHALATION Q2H PRN PRN PRN Reason: SHORTNESS OF BREATH Albuterol/Ipratropium (Duoneb) 3 ml INHALATION Q6H.RT [facility] Last Admin: 08/21/18 01:00 Dose: Not Given Bisacodyl (Dulcolax) 5 mg PO DAILY PRN PRN PRN Reason: Constipation Guaifenesin (Mucinex) 1,200 mg PO BID [facility] Last Admin: 08/20/18 22:48 Dose: 1,200 mg Azithromycin 500 mg/ Dextrose 255 mls @ 250 mls/hr IV Q24@2200 [facility] Stop: 08/21/18 23:02 Last Admin: 08/20/18 23:45 Dose: 250 mls/hr Ceftriaxone Sodium (Rocephin) 1 gm in 50 mls @ 100 mls/hr IV Q12 [facility] Last Admin: 08/20/18 22:47 Dose: 100 mls/hr Vancomycin IV Pharmacy to Dose (1,250 ea/ Sodium Chloride) 500 mls @ 250 mls/hr IV PRN PRN; Protocol Vancomycin HCl 750 mg/ Sodium (Chloride) 265 mls @ 250 mls/hr IV Q8H [facility] Ketorolac Tromethamine (Toradol) 30 mg IV Q8 [facility] Stop: 08/21/18 22:01 Last Admin: 08/21/18 06:52 Dose: 30 mg Magnesium Hydroxide (Milk Of Magnesia) 30 ml PO DAILY PRN PRN PRN Reason: Constipation Nicotine (Nicoderm Cq (Pbkc)) 14 mg TRANSDERM. DAILY [facility] Last Admin: 08/20/18 09:50 Dose: 14 mg Ondansetron HCl (Zofran) 4 mg IV Q8H PRN PRN PRN Reason: NAUSEA Oxycodone HCl (Oxyir) 5 mg PO Q6H PRN PRN PRN Reason: SEVERE PAIN (6-10/10) Last Admin: 08/20/18 05:35 Dose: 5 mg Sodium Chloride () 5 - 15 ml IV UD PRN PRN Reason: SALINE FLUSH Last Admin: 08/21/18 06:52 Dose: 10 ml Medical Necessity - Tobacco Use Smoking Status: Current every day smoker Tobacco Use: Cigarettes Assessment/Plan All Active Problems (Last Updated 08/19/18 @ 08:21 by Joaquin Dejesus MD) Community acquired pneumonia (Acute) MRSA bacteremia (Acute) The patient is a 38 y/o M w/ PMHx: Tobacco use, Cannabis Use, Hx HTN no on regimen, Homeless who presents to the [facility] ED on 08/20/18 with history of progressively worsening chest discomfort, productive cough, fever, chills, malaise x 3 days. (1) Acute Sepsis secondary to BL LE MRSA and Streptococcal pneumoniae BL Pneumonia and concurrent MRSA Bacteremia, concern for Possible Endocarditis concurrently: CTPA w/ new onset bilateral pulmonary infiltrates including left lower lobe large infiltrate with consolidation, no evidence of PE. Admission CBC w/ WBC 16.4 with L shift. Admitted to PCU as MS status, maintained on oxygen with wean as tolerated to room air, continued ATC duonebs, PRN albuterol, maintained on initially IV Rocephin and Azithromycin-->08/21/18 transitioned to rocephin and vanc, HOB, IS parameters w/ sputum cultures w/ MRSA and Streptococcal pneumoniae, 08/19/18 Bld Cx x 2 w/ MRSA, ID following, repeat 3/26/19 Bld Cx requested and ECHO obtained, read pending. (2) Hypokalemia: Admission K+ 3.4, supplementation given, repeat level corrected, 4.0 (3) Tobacco Abuse: Encouraged cessation, inpatient consultation per RT, NR if desired. (4) Polysubstance abuse: CM Consulted for homelessness and history of polysubstance abuse, hepatitis panel and HIV pending. (5) DVT Prophylaxis: Encouraged ambulation, low risk. Code Visit Inpatient E&M: 82583 Subs Hosp L3
[2018-08-21 08:16] LABS: Absolute Lymphocyte Count 1.58 X10^3/ul (0.83-4.51); Absolute Neutrophil Count 7.1 X10^3/uL (2.0-7.7); Basophil# 0.04 X10^3/uL; Basophil% 0.4 % (0-1); Eosinophil# 0.52 X10^3/uL; Eosinophils% 5.1 % (0-5); Hematocrit 35.6 % (40-54); Hemoglobin 12.1 g/dl (13.0-16.5); Lymphocyte # 1.58 X10^3/ul (4.0); Lymphocyte % 15.4 % (19-41); Mean Corpuscular Hgb 31.1 pg (27.0-32.0); Mean Corpuscular Volume 91.5 fL (80-94); Mean Platelet Vol. 8.7 fl (6.2-12.0); Monocyte# 0.92 X10^3/uL; Neutrophil # 7.08 X10^3/uL (2.7-7.7); Neutrophil % 69.2 % (47-70); POSITIVE COUNT NO; POSITIVE DIFFERENTIAL NO; POSITIVE MORPHOLOGY NO; Platelet Count 389 K/mm3 (150-450); RBC Distribution Width SD 43.5 fl (35.1-43.9); Red Blood Count 3.89 M/mm3 (4.6-6.2); White Blood Count 10.2 K/mm3 (4.4-11.0)
[2018-08-21 08:28] LABS: ALB/GLOB Ratio 0.6 RATIO (0.9-2.4); AST(SGOT) 36 U/L (15-37); Alanine Aminotransfer ALT/SGPT 63 U/L (16-61); Albumin, Serum 2.3 g/dL (3.2-5.0); Alkaline Phosphatase 71 U/L (45-117); Anion Gap 4 (5-15); BUN 6 mg/dL (7-18); BUN/Creat Ratio 10.2 RATIO (10-20); Calcium,Total 8.3 mg/dL (8.5-10.1); Chloride 110 mmol/L (98-107); Creatinine, Serum 0.59 mg/dL (0.70-1.30); EST Glomerular Filtration Rate 164 mL/min (>60); Est Glom Filt Rate - Afr Amer 198 mL/min (>60); Estimated Creatinine Clearance 126.49 ml/min; Glucose 94 mg/dL (74-106); Protein, Total 6.3 g/dL (6.4-8.2); Sodium Level 139 mmol/L (136-145)
--- NOTE | 2018-08-21 09:32 | ECHOD_ITS ---
Reason For Study: DYSPNEA/SOB, BACTEREMIA Procedure This was a 2D Doppler, Color Flow transthoracic echocardiogram. The exam was of adequate technical quality. Exam performed portable in patient room. Left Ventricle Normal LV size. Left ventricular systolic function is normal. The estimated ejection fraction is 60 %. No evidence for diastolic dysfunction. No regional wall motion abnormalities noted. Right Ventricle Normal RV size. Normal systolic function. Atria Normal left atrium. Normal right atrium. No doppler evidence for ASD. Mitral Valve There is no mitral annular calcification. Normal mitral valve. Trivial mitral valve insufficiency. Tricuspid Valve Normal tricuspid valve. Trivial tricuspid valve insufficiency. Right ventricular systolic pressure estimated to be 27 mmHg. Aortic Valve Trisinus/trileaflet aortic valve. Normal aortic valve. Pulmonic Valve The pulmonic valve is not well visualized. Trivial pulmonic valve insufficiency. Great Vessels Normal sized aortic root. Pericardium/Pleural No pericardial effusion. MMode/2D Measurements & Calculations LVIDd: 4.7 cm IVSd: 0.71 cm Ao root diam: 2.9 cm LVIDs: 3.4 cm LVPWd: 0.72 cm RVDd: 3.3 cm FS: 28.1 % LAV(MOD-bp): 33.3 ml LVAd ap4: 32.2 cm2 SV(MOD-sp4): 56.2 ml LAV(MOD-bp) Indexed: 20.9 ml/m2 EDV(MOD-sp4): 108.7 ml LAV(MOD-sp2): 39.3 ml EDV(sp4-el): 111.9 ml LAV(MOD-sp4): 26.4 ml LVAs ap4: 20.6 cm2 ESV(MOD-sp4): 52.4 ml ESV(sp4-el): 53.2 ml EF(MOD-sp4): 51.7 % EF(sp4-el): 52.4 % SV(sp4-el): 58.6 ml LA A4 area: 12.1 cm2 LA dimension(2D): 2.9 cm RA A4 area: 12.8 cm2 Time Measurements MV dec time: 0.26 sec Doppler Measurements & Calculations MV E max pancho: 74.4 cm/sec Lat Peak E' Pancho: 16.2 cm/sec Med Peak E' Pancho: 13.4 cm/sec MV A max pancho: 72.2 cm/sec E/E' lat: 4.6 E/E' med: 5.6 MV E/A: 1.0 Ao V2 max: 145.3 cm/sec LV V1 max: 113.4 cm/sec PA V2 max: 134.0 cm/sec Ao max P.5 mmHg LV V1 max P.1 mmHg TR max pancho: 243.8 cm/sec TR max P.8 mmHg Interpretation Summary Left ventricular systolic function is normal. The estimated ejection fraction is 60 %. Trivial mitral valve insufficiency. Trivial tricuspid valve insufficiency. Trivial pulmonic valve insufficiency. Right ventricular systolic pressure estimated to be 27 mmHg. No evidence for diastolic dysfunction. Ordering Physician: Ronan Lopez Referring Physician: Joaquin Dejesus Performed By: Megan Bird RDCS
[2018-08-21] MEDS: Ceftriaxone 1 GM/50 ML BAG IV ×2 (09:56→22:12)
[2018-08-21] MEDS: guaiFENesin 1,200 MG Tablet 1200 MG PO ×2 (09:56→22:12)
--- NOTE | 2018-08-21 10:21 | CON.PCM_ITS ---
Problem List (1) MRSA bacteremia Status: Acute Reason for Consult: bacteremia Consulted by: Dr. Romo History of Present Illness: The patient is a 38 year old M with h/o drug use who presented 08/19 with 5 days of sharp, severe, L sided chest pain, worse with deep breath. Some cough and sputum. No fever. No other joint or back pain. No h/o MRSA abscess. No h/o IVDU. Has used cocaine, opiates, meth. Seen in ED 08/15, cxr clear, sent out. Came back, CT showed pneumonia, started on ceftriaxone/azithro, vanc added with (+) staph aureus. Feeling better, SOB and pain improved. Full ROS Performed and neg except as noted above. - Medical History Allergies/Adverse Reactions: Allergies seasonal Allergy (Uncoded 08/18/18 22:52) Other Home Medications: Ambulatory Orders Medication Instructions Recorded Albuterol IH (ProAir) [Proair Hfa] 1 - 2 puff INHALATION Q4H PRN PRN 08/20/18 #1 inhaler Azithromycin [Zithromax Tri-Brad] 500 mg PO DAILY #1 tablet 08/20/18 Cefdinir [Omnicef [equiv]] 300 mg PO Q12H #10 capsule 08/20/18 Guaifenesin [Mucinex] 1,200 mg PO BID #20 tablet 08/20/18 Nicotine [Nicoderm] 14 mg TRANSDERM. DAILY #20 patch 08/20/18 - Social History Tobacco Use: cigarettes Drug Use: cocaine Vital Signs Temp Pulse Resp BP Pulse Ox 98.2 F 82 16 108/71 98 08/21/18 06:54 08/21/18 06:54 08/21/18 06:54 08/21/18 06:54 08/21/18 06:54 Oxygen Delivery Method Room Air Weight: 53.2 kg Body Mass Index (BMI) 18.8 Microbiology Past 72 Hours 08/19/18 14:35 Gram Stain - Final Sputum, Expectorated/Coughed Respiratory Culture - Preliminary Meth. resistant Staph. aureus Streptococcus pneumoniae 08/19/18 08:25 Bacteria Detection (PCR) - Preliminary Blood Culture (Wb) - Anticubital Left Staphylococcus aureus Blood Culture - Preliminary Staphylococcus aureus 08/19/18 16:51 Streptococcus pneumoniae Antigen (M - Final Urine, Clean Catch 08/19/18 16:51 Legionella Antigen - Final Urine, Clean Catch Laboratory Tests Past 24 Hrs 08/21/18 08/21/18 07:50 07:50 WBC 10.2 RBC 3.89 L Hgb 12.1 L Hct 35.6 L MCV 91.5 MCH 31.1 MCHC 34.0 RDW 13.0 RDW Differential 43.5 Plt Count 389 MPV 8.7 Immature Gran % (Auto) 0.900 Neut % (Auto) 69.2 Lymph % (Auto) 15.4 L [place] % (Auto) 9.0 Eos % (Auto) 5.1 H Baso % (Auto) 0.4 Absolute Neuts (auto) 7.1 Absolute Lymphs (auto) 1.58 Total Counted Not Reportable Sodium 139 Potassium 4.0 Chloride 110 H Carbon Dioxide 25.0 Anion Gap 4 L BUN 6 L Creatinine 0.59 L Estim Creat Clear Calc 126.49 Est GFR (MDRD) Af Amer 198 Est GFR (MDRD) Non-Af 164 BUN/Creatinine Ratio 10.2 Glucose 94 Calcium 8.3 L Total Bilirubin 0.30 AST 36 ALT 63 H Alkaline Phosphatase 71 Total Protein 6.3 L Albumin 2.3 L Globulin 4.0 Albumin/Globulin Ratio 0.6 L - Other Studies Radiology: [] reviewed Other Studies: [] Route of nutrition/ use of supplements: [] Nutritional Intake: [] IV Site: [] Knapp Catheter: [] - Physical Exam General: Alert, Oriented x3, Cooperative, No apparent distress HEENT: Atraumatic, PERRLA, EOMI Neck: Supple, No Nodes Lungs: Normal air movement, Diminished, Rhonchi - L base Cardiovascular: Regular rate, Regular Rhythm, Murmur Abdomen: Soft, Non Tender, Non-Distended Extremities: No edema Skin: No rashes IV Site: Peripheral, without redness Musculoskeletal: No Tenderness to Palpation of Joints or Extremities - including spine Neurological: Cranial nerves II-XII grossly intact - Assessment/Plan Antibiotics: [] Assessment/Plan: [] Active and Suspected Problems (Last Updated 08/19/18 @ 08:21 by Joaquin Dejesus MD) Community acquired pneumonia (Acute) MRSA bacteremia due to pneumonia. Sputum with s.pneumo and MRSA. Overall improving. Will repeat bcx, check TTE, will need repeat cxr for monitoring. Continue vanc and ceftriaxone. Stop azithro; UAgs neg. With murmur and drug use, concern for endocarditis. ? splinter hemorrhages on R 1st and 5th fingers, but nails are generally in rough shape so difficult to say. Will follow, thank you.
[2018-08-21 12:46] VITALS: BP 117/72; PULSE 97; RESP 15; TEMP 36.6; O2SAT 98
[2018-08-21 13:22] VITALS: PULSE 89; RESP 22
[2018-08-21] MEDS: Ipratropium/Albuterol Sulfate 3 ML AMPUL.NEB INHALATION (13:22)
[2018-08-21 13:46] LABS: Hep B Surface Antibodies Non Reactive (.)
--- NOTE | 2018-08-21 14:37 | CASEMGMT ---
Patient has a court hearing tomorrow. ABBE spoke with patient and had him sign a release so SW could communicate with his international first officer. ABBE called [facility] [facility] and spoke with Officer Denise. ABBE let him know patient is still in the hospital and his discharge date is unknown. ABBE asked if he would like a letter stating this information. He asked SW to fax the letter to [phone]. ABBE completed and faxed a letter to [facility]. ABBE let patient know this information. ABBE also wrote down the number to [facility] and the name of his international first officer. Patient thanked ABBE. Catherine WINCHESTER MSW
[2018-08-21 16:54] VITALS: BP 116/74; PULSE 94; RESP 16; TEMP 36.9; O2SAT 98
[2018-08-21 22:10] VITALS: BP 103/67; PULSE 85; RESP 16; TEMP 36.3; O2SAT 98
[2018-08-22] MEDS: Ipratropium/Albuterol Sulfate 3 ML AMPUL.NEB INHALATION ×3 (01:00→19:09)
[2018-08-22] MEDS: Acetaminophen 500 MG Tablet PO ×5 (01:04→23:07)
[2018-08-22 02:57] LABS: Absolute Lymphocyte Count 2.13 X10^3/ul (0.83-4.51); Basophil# 0.07 X10^3/uL; Basophil% 0.6 % (0-1); Eosinophil# 0.66 X10^3/uL; Eosinophils% 5.5 % (0-5); Hematocrit 37.3 % (40-54); Hemoglobin 12.4 g/dl (13.0-16.5); Lymphocyte # 2.13 X10^3/ul (4.0); Lymphocyte % 17.8 % (19-41); Mean Corp Hgb Conc 33.2 g/gl (32-36); Mean Corpuscular Hgb 31.2 pg (27.0-32.0); Mean Corpuscular Volume 93.7 fL (80-94); Mean Platelet Vol. 8.6 fl (6.2-12.0); Monocyte# 0.92 X10^3/uL; Monocyte% 7.7 % (0-10); Neutrophil # 8.03 X10^3/uL (2.7-7.7); Neutrophil % 66.9 % (47-70); Platelet Count 474 K/mm3 (150-450); RBC Distribution Width CV 12.5 % (11.6-14.6); RBC Distribution Width SD 42.1 fl (35.1-43.9); Red Blood Count 3.98 M/mm3 (4.6-6.2)
[2018-08-22 02:58] LABS: Differential Indicated SCAN CRITERIA MET; POSITIVE COUNT NO; POSITIVE DIFFERENTIAL NO; POSITIVE MORPHOLOGY YES
[2018-08-22 03:12] LABS: ALB/GLOB Ratio 0.5 RATIO (0.9-2.4); AST(SGOT) 59 U/L (15-37); Alanine Aminotransfer ALT/SGPT 86 U/L (16-61); Albumin, Serum 2.2 g/dL (3.2-5.0); Alkaline Phosphatase 76 U/L (45-117); Anion Gap 4 (5-15); BUN 15 mg/dL (7-18); BUN/Creat Ratio 26.8 RATIO (10-20); Calcium,Total 7.9 mg/dL (8.5-10.1); Chloride 112 mmol/L (98-107); Creatinine, Serum 0.56 mg/dL (0.70-1.30); EST Glomerular Filtration Rate 173 mL/min (>60); Est Glom Filt Rate - Afr Amer 209 mL/min (>60); Estimated Creatinine Clearance 133.26 ml/min; Globulin 4.1 g/dL (2.2-4.2); Glucose 103 mg/dL (74-106); Potassium 4.2 mmol/L (3.5-5.1); Protein, Total 6.3 g/dL (6.4-8.2); Sodium Level 139 mmol/L (136-145)
[2018-08-22 03:16] LABS: Vancomycin, Trough Level 7.8 ug/mL (5.0-15.0)
[2018-08-22 03:29] VITALS: BP 136/75; PULSE 83; RESP 17; TEMP 36.6; O2SAT 98
[2018-08-22] MEDS: 0.9% NaCl Peripheral Flush Adult/Peds IV ×3 (03:33→18:33)
--- NOTE | 2018-08-22 04:08 | PCM.RX.CS ---
Consult Pharmacy has been consulted to manage selected antiobiotic: Vancomycin Type of Consult: Follow-up Suspected Infection: Pneumonia Prior Doses of Antibiotics Received/Current Regimen: Medications Vancomycin HCl 1,500 mg/ (Sodium Chloride) 530 mls @ 250 mls/hr IV Q8H RUBY Vancomycin HCl 750 mg/ Sodium (Chloride) 265 mls @ 250 mls/hr IV Q8H RUBY Stop: 08/22/18 04:37 Last Admin: 08/22/18 03:33 Dose: 250 mls/hr Labs: Sodium 139 mmol/L (136-145) 08/22/18 02:40 Potassium 4.2 mmol/L (3.5-5.1) 08/22/18 02:40 Chloride 112 mmol/L (98-107) H 08/22/18 02:40 Carbon Dioxide 23.0 mmol/L (21.0-32.0) 08/22/18 02:40 Anion Gap 4 (5-15) L 08/22/18 02:40 BUN 15 mg/dL (7-18) 08/22/18 02:40 Creatinine 0.56 mg/dL (0.70-1.30) L 08/22/18 02:40 Est GFR (MDRD) Af Amer 209 mL/min (>60) 08/22/18 02:40 Est GFR (MDRD) Non-Af 173 mL/min (>60) 08/22/18 02:40 BUN/Creatinine Ratio 26.8 RATIO (10-20) H 08/22/18 02:40 Glucose 103 mg/dL (74-106) 08/22/18 02:40 Vancomycin Trough 7.8 ug/mL (5.0-15.0) 08/22/18 02:40 Microbiology: Microbiology 08/19/18 08:35 Blood Culture (Wb) - Left Hand Blood Culture - Preliminary No growth in 48 hours. 08/19/18 08:25 Blood Culture (Wb) - Anticubital Left Bacteria Detection (PCR) - Final Staphylococcus aureus mecA Resistance Marker 08/19/18 08:25 Blood Culture (Wb) - Anticubital Left Blood Culture - Preliminary Staphylococcus aureus 08/19/18 14:35 Sputum, Expectorated/Coughed Gram Stain - Final 08/19/18 14:35 Sputum, Expectorated/Coughed Respiratory Culture - Preliminary Meth. resistant Staph. aureus Streptococcus pneumoniae 08/19/18 16:51 Urine, Clean Catch Streptococcus pneumoniae Antigen (M - Final 08/19/18 16:51 Urine, Clean Catch Legionella Antigen - Final Weight used for dosin.2 kg Estimated Creatinine Clearance: 133 Goal Trough: 15-20 mcg/mL Pharmacy Plan for Drug Dosing: Due to trough level of 7.8, dose was increased to 1500mg q8h. Another trough will be drawn before 4th bag at this new dose. Pharmacy Service will continue to monitor and adjust dosing as required. Follow-Up Labs: Trough Vancomycin Labs to be done on [date and time ordered]: 08/23/18 @2792
--- NOTE | 2018-08-22 05:55 | RAD_ITS ---
STUDY: X-RAY CHEST REASON FOR EXAM: Male, 38 years old. Shortness of breath/dyspnea. TECHNIQUE: PA and lateral views of the chest. COMPARISON: Comparison is made with prior study dated August 15, 2018. FINDINGS: Hyperinflation. There is evidence of bibasilar infiltrates worse in the left lower lobe and lingular segment of the left upper lobe. There is no demonstrated pleural abnormality. Normal size heart. Normal mediastinum and ismael. Normal visualized pulmonary arteries. Normal visualized aortic arch and descending thoracic aorta. Normal visualized thoracic spine. Normal visualized ribs, clavicles, and shoulders. There is no demonstrated abnormality of the visualized soft tissue structures of the upper abdomen. RAD/Chest PA and Lateral IMPRESSION: Left lower lobe and lingular infiltrates. Focal right middle lobe infiltrate. Follow-up is recommended. Electronically Signed: Cole Banerjee, at 14:19 EDT , Service support ,
--- NOTE | 2018-08-22 07:22 | PCM.PN.HOSP ---
Patient Problems: Active and Suspected Problems (Last Updated 08/19/18 @ 08:21 by Joaquin Dejesus MD) Community acquired pneumonia (Acute) MRSA bacteremia (Acute) Subjective: Patient notes he feels improved since day prior but still has intermittent chills and sweating. He notes the breathing has improved and less coughing. He is still lethargic and mildly resistant to encouragement to get out of bed. Discussed plan of care with patient including awaiting second blood cultures and if results unremarkable by tomorrow then would plan to transition to oral regimen with an additional 12-day course upon discharge. Patient denies fevers, nausea, emesis, abdominal pain, chest pain or worsened dyspnea. Objective: Physical Examination: General: awake, alert, oriented x 3 and cooperative, seated upright in bed, less fatigued, more interactive. Skin: Normal color, turgor, no icterus, cyanosis. HEENT: AT/NC, EOMI, PERRLA, improved MMM. Lungs: Diminished BS BL, L>R, no rhonchi, improved effort, no coughing elicited with effort, no rales or wheezing. Heart: Regular rate and rhythm; no gallop, rub audible, ?SM. Abdomen: soft, NTTP, ND, normal BS. Extremities: no cyanosis, clubbing, or edema. Neurological: patient awake, alert, oriented x 3; cognitive function intact; pupils equally reactive to light and accomodation; cranial nerves II-XII grossly normal, moving all 4 extremities, no focal deficits, strength improving, mildly to moderately globally decreased. Psychiatric: affect appears improved, less fatigued, no acute evidence of depressive or anxiety feelings. Vitals/I&O's: Vital Signs Temp Pulse Resp BP Pulse Ox 97.8 F 83 17 136/75 H 98 08/22/18 03:29 08/22/18 03:29 08/22/18 03:29 08/22/18 03:29 08/22/18 03:29 Oxygen Delivery Method Room Air Weight: 117 lb 4.575 oz Body Mass Index (BMI) 18.8 Intake and Output for Last 24 Hours 08/20/18 08/21/18 08/22/18 23:59 23:59 23:59 Intake Total 1138 / 1138 2503 / 2503 913 / 913 Balance 1138 / 1138 2503 / 2503 913 / 913 Microbiology Past 72 Hours 08/19/18 08:35 Blood Culture (Wb) - Left Hand Blood Culture - Preliminary No growth in 48 hours. 08/19/18 08:25 Blood Culture (Wb) - Anticubital Left Bacteria Detection (PCR) - Final Staphylococcus aureus mecA Resistance Marker 08/19/18 08:25 Blood Culture (Wb) - Anticubital Left Blood Culture - Preliminary Staphylococcus aureus 08/19/18 14:35 Sputum, Expectorated/Coughed Gram Stain - Final 08/19/18 14:35 Sputum, Expectorated/Coughed Respiratory Culture - Preliminary Meth. resistant Staph. aureus Streptococcus pneumoniae 08/19/18 16:51 Urine, Clean Catch Streptococcus pneumoniae Antigen (M - Final 08/19/18 16:51 Urine, Clean Catch Legionella Antigen - Final Laboratory Results 08/20/18 05:55: Hepatitis A IgM Ab Negative, Hepatitis A Ab Total Negative, Hep Bs Antigen Negative, Hep B Core Total Ab Negative, Hep B Core IgM Ab Negative, Hepatitis C Ab Confirm <0.1, Hepatitis C Comment Comment 08/21/18 07:50: WBC 10.2, RBC 3.89 L, Hgb 12.1 L, Hct 35.6 L, MCV 91.5, MCH 31.1, MCHC 34.0, RDW 13.0, RDW Differential 43.5, Plt Count 389, MPV 8.7, Immature Gran % (Auto) 0.900, Neut % (Auto) 69.2, Lymph % (Auto) 15.4 L, [place] % (Auto) 9.0, Eos % (Auto) 5.1 H, Baso % (Auto) 0.4, Absolute Neuts (auto) 7.1, Absolute Lymphs (auto) 1.58, Total Counted Not Reportable 08/21/18 07:50: Sodium 139, Potassium 4.0, Chloride 110 H, Carbon Dioxide 25.0, Anion Gap 4 L, BUN 6 L, Creatinine 0.59 L, Estim Creat Clear Calc 126.49, Est GFR (MDRD) Af Amer 198, Est GFR (MDRD) Non-Af 164, BUN/Creatinine Ratio 10.2, Glucose 94, Calcium 8.3 L, Total Bilirubin 0.30, AST 36, ALT 63 H, Alkaline Phosphatase 71, Total Protein 6.3 L, Albumin 2.3 L, Globulin 4.0, Albumin/Globulin Ratio 0.6 L 08/22/18 02:40: Vancomycin Trough 7.8 08/22/18 02:40: WBC 12.0 H, RBC 3.98 L, Hgb 12.4 L, Hct 37.3 L, MCV 93.7, MCH 31.2, MCHC 33.2, RDW 12.5, RDW Differential 42.1, Plt Count 474 H, MPV 8.6, Immature Gran % (Auto) 1.500 H, Neut % (Auto) 66.9, Lymph % (Auto) 17.8 L, [place] % (Auto) 7.7, Eos % (Auto) 5.5 H, Baso % (Auto) 0.6, Absolute Neuts (auto) 8.0 H, Absolute Lymphs (auto) 2.13, Total Counted Not Reportable 08/22/18 02:40: Sodium 139, Potassium 4.2, Chloride 112 H, Carbon Dioxide 23.0, Anion Gap 4 L, BUN 15, Creatinine 0.56 L, Estim Creat Clear Calc 133.26, Est GFR (MDRD) Af Amer 209, Est GFR (MDRD) Non-Af 173, BUN/Creatinine Ratio 26.8 H, Glucose 103, Calcium 7.9 L, Total Bilirubin 0.20, AST 59 H, ALT 86 H, Alkaline Phosphatase 76, Total Protein 6.3 L, Albumin 2.2 L, Globulin 4.1, Albumin/Globulin Ratio 0.5 L Current Medications Acetaminophen (Tylenol) 500 mg PO Q6 [facility] Last Admin: 08/22/18 06:41 Dose: 500 mg Albuterol Sulfate (Ventolin Aerosols) 2.5 mg INHALATION Q2H PRN PRN PRN Reason: SHORTNESS OF BREATH Albuterol/Ipratropium (Duoneb) 3 ml INHALATION Q6H.RT [facility] Last Admin: 08/22/18 01:00 Dose: 3 ml Bisacodyl (Dulcolax) 5 mg PO DAILY PRN PRN PRN Reason: Constipation Guaifenesin (Mucinex) 1,200 mg PO BID [facility] Last Admin: 08/21/18 22:12 Dose: 1,200 mg Ceftriaxone Sodium (Rocephin) 1 gm in 50 mls @ 100 mls/hr IV Q12 [facility] Last Admin: 08/21/18 22:12 Dose: 100 mls/hr Vancomycin IV Pharmacy to Dose (1,250 ea/ Sodium Chloride) 500 mls @ 250 mls/hr IV PRN PRN; Protocol Vancomycin HCl 1,500 mg/ (Sodium Chloride) 530 mls @ 250 mls/hr IV Q8H RUBY Magnesium Hydroxide (Milk Of Magnesia) 30 ml PO DAILY PRN PRN PRN Reason: Constipation Nicotine (Nicoderm Cq (Pbkc)) 14 mg TRANSDERM. DAILY RUBY Last Admin: 08/21/18 09:56 Dose: 14 mg Nutritional Formula (Lactose Free) (Ensure Enlive) 120 ml PO 4X/DAY RUBY Last Admin: 08/21/18 22:14 Dose: Not Given Ondansetron HCl (Zofran) 4 mg IV Q8H PRN PRN PRN Reason: NAUSEA Oxycodone HCl (Oxyir) 5 mg PO Q6H PRN PRN PRN Reason: SEVERE PAIN (6-10/10) Last Admin: 08/20/18 05:35 Dose: 5 mg Sodium Chloride () 5 - 15 ml IV UD PRN PRN Reason: SALINE FLUSH Last Admin: 08/22/18 03:33 Dose: 10 ml Medical Necessity - Tobacco Use Smoking Status: Current every day smoker Tobacco Use: Cigarettes Assessment/Plan All Active Problems (Last Updated 08/19/18 @ 08:21 by Joaquin Dejesus MD) Community acquired pneumonia (Acute) MRSA bacteremia (Acute) The patient is a 38 y/o M w/ PMHx: Tobacco use, Cannabis Use, Hx HTN no on regimen, Homeless who presents to the [facility] ED on 08/20/18 with history of progressively worsening chest discomfort, productive cough, fever, chills, malaise x 3 days. (1) Acute Sepsis secondary to BL LE MRSA and Streptococcal pneumoniae BL Pneumonia and concurrent MRSA Bacteremia, concern for Possible Endocarditis concurrently: CTPA w/ new onset bilateral pulmonary infiltrates including left lower lobe large infiltrate with consolidation, no evidence of PE. Admission CBC w/ WBC 16.4 with L shift. Admitted to PCU as MS status, maintained on oxygen with wean as tolerated to room air, continued ATC duonebs, PRN albuterol, maintained on initially IV Rocephin and Azithromycin-->08/21/18 transitioned to rocephin and vanc, HOB, IS parameters w/ sputum cultures w/ MRSA and Streptococcal pneumoniae, 08/19/18 Bld Cx x 2 w/ MRSA, repeat 08/21/18 Bld Cx requested and pending currently. ECHO obtained w/ LV systolic function normal, EF 60%, trivial MDI, trivial TBI, trivial PVI, RVSP 27 mmHg, no obvious vegetations. 08/22/18 CBC w/ WBC 12 with mildly increased L shift from day prior. Remains afebrile. ID following. We will plan to continue current treatment with transition to oral linezolid x total 14 week duration from negative culture, therefore if Cx remain negative into 08/23/18 would plan discharge to home on 12 additional days of treatment. (2) Hypokalemia: Admission K+ 3.4, supplementation given, repeat level corrected, 4.2. (3) Tobacco Abuse: Encouraged cessation, inpatient consultation per RT, NR if desired. (4) Polysubstance abuse: CM Consulted for homelessness and history of polysubstance abuse, hepatitis panel and HIV panels nonreactive, negative. (5) DVT Prophylaxis: Encouraged ambulation, low risk.
[2018-08-22] MEDS: guaiFENesin 1,200 MG Tablet 1200 MG PO ×2 (08:29→20:36)
[2018-08-22 09:30] VITALS: BP 114/62; PULSE 93; RESP 16; TEMP 35.9; O2SAT 98
[2018-08-22] MEDS: Ceftriaxone 1 GM/50 ML BAG IV (09:30)
[2018-08-22 13:15] VITALS: PULSE 98; RESP 16; O2SAT 97
[2018-08-22 14:00] VITALS: BP 108/54; PULSE 87; RESP 16; TEMP 36.8; O2SAT 98
--- NOTE | 2018-08-22 14:52 | PCM.PN.ID ---
Patient Problems: Active and Suspected Problems (Last Updated 08/19/18 @ 08:21 by Joaquin Dejesus MD) Community acquired pneumonia (Acute) MRSA bacteremia (Acute) Subjective: Feeling better, no fever, no n/v/d. Breathing improved. - Physical Exam General: Alert, Cooperative, No apparent distress Lungs: Clear to auscultation, Normal air movement Cardiovascular: Regular rate, Regular Rhythm Abdomen: Soft, Non Tender, Non-Distended Skin: No rashes Vital Signs Temp Pulse Resp BP Pulse Ox 96.7 F L 98 16 114/62 97 08/22/18 09:30 08/22/18 13:15 08/22/18 13:15 08/22/18 09:30 08/22/18 13:15 Oxygen Delivery Method Room Air Weight: 53.2 kg Body Mass Index (BMI) 18.8 Intake and Output for Last 24 Hours 08/20/18 08/21/18 08/22/18 23:59 23:59 23:59 Intake Total 1138 / 1138 2503 / 2503 913 / 913 Balance 1138 / 1138 2503 / 2503 913 / 913 Microbiology Past 72 Hours 08/19/18 14:35 Gram Stain - Final Sputum, Expectorated/Coughed Respiratory Culture - Final Meth. resistant Staph. aureus Streptococcus pneumoniae 08/19/18 08:25 Bacteria Detection (PCR) - Final Blood Culture (Wb) - Anticubital Left Staphylococcus aureus mecA Resistance Marker Blood Culture - Preliminary Meth. resistant Staph. aureus 08/19/18 08:35 Blood Culture - Preliminary Blood Culture (Wb) - Left Hand No growth in 48 hours. 08/19/18 16:51 Streptococcus pneumoniae Antigen (M - Final Urine, Clean Catch 08/19/18 16:51 Legionella Antigen - Final Urine, Clean Catch Laboratory Tests Past 24 Hrs 08/22/18 08/22/18 08/22/18 02:40 02:40 02:40 WBC 12.0 H RBC 3.98 L Hgb 12.4 L Hct 37.3 L MCV 93.7 MCH 31.2 MCHC 33.2 RDW 12.5 RDW Differential 42.1 Plt Count 474 H MPV 8.6 Immature Gran % (Auto) 1.500 H Neut % (Auto) 66.9 Lymph % (Auto) 17.8 L [place] % (Auto) 7.7 Eos % (Auto) 5.5 H Baso % (Auto) 0.6 Absolute Neuts (auto) 8.0 H Absolute Lymphs (auto) 2.13 Total Counted Not Reportable Sodium 139 Potassium 4.2 Chloride 112 H Carbon Dioxide 23.0 Anion Gap 4 L BUN 15 Creatinine 0.56 L Estim Creat Clear Calc 133.26 Est GFR (MDRD) Af Amer 209 Est GFR (MDRD) Non-Af 173 BUN/Creatinine Ratio 26.8 H Glucose 103 Calcium 7.9 L Total Bilirubin 0.20 AST 59 H ALT 86 H Alkaline Phosphatase 76 Total Protein 6.3 L Albumin 2.2 L Globulin 4.1 Albumin/Globulin Ratio 0.5 L Vancomycin Trough 7.8 Medical Necessity - Tobacco Use Smoking Status: Current every day smoker Tobacco Use: Cigarettes Route of nutrition/ use of supplements: [] Nutritional Intake: [] IV Site: [] Knapp Catheter: [] - Assessment/Plan Antibiotics: [] Assessment/Plan: [] Active and Suspected Problems (Last Updated 08/19/18 @ 08:21 by Joaquin Dejesus MD) Community acquired pneumonia (Acute) MRSA bacteremia due to pneumonia. Sputum with s.pneumo and MRSA. Overall improving. TTE neg for veg. Repeat bcx neg so far. If it stays negative, plan will be for d/c home on po linezolid for 12 more days. Continue vanc for now, stop ceftriaxone. Will follow, d/w Dr. Romo
[2018-08-22] MEDS: oxyCODONE 5 MG Tablet PO ×2 (16:57→23:06)
[2018-08-22 19:12] VITALS: PULSE 99; RESP 18; O2SAT 99
[2018-08-22 20:00] VITALS: BP 135/73; PULSE 107; RESP 18; TEMP 37.3; O2SAT 95
[2018-08-23 02:00] VITALS: BP 118/63; PULSE 74; RESP 18; TEMP 36.7; O2SAT 97
[2018-08-23] MEDS: 0.9% NaCl Peripheral Flush Adult/Peds IV ×2 (02:22→05:17)
[2018-08-23] MEDS: Acetaminophen 500 MG Tablet PO ×2 (05:16→11:24)
[2018-08-23 05:38] LABS: ALB/GLOB Ratio 0.6 RATIO (0.9-2.4); AST(SGOT) 58 U/L (15-37); Alanine Aminotransfer ALT/SGPT 103 U/L (16-61); Albumin, Serum 2.2 g/dL (3.2-5.0); Alkaline Phosphatase 77 U/L (45-117); Anion Gap 8 (5-15); BUN 12 mg/dL (7-18); Calcium,Total 8.1 mg/dL (8.5-10.1); Chloride 111 mmol/L (98-107); EST Glomerular Filtration Rate 160 mL/min (>60); Est Glom Filt Rate - Afr Amer 193 mL/min (>60); Estimated Creatinine Clearance 124.38 ml/min; Glucose 90 mg/dL (74-106); Potassium 4.2 mmol/L (3.5-5.1); Protein, Total 6.2 g/dL (6.4-8.2); Sodium Level 142 mmol/L (136-145)
[2018-08-23 05:39] LABS: Absolute Lymphocyte Count 2.34 X10^3/ul (0.83-4.51); Absolute Neutrophil Count 8.6 X10^3/uL (2.0-7.7); Basophil# 0.06 X10^3/uL; Basophil% 0.5 % (0-1); Eosinophil# 0.55 X10^3/uL; Eosinophils% 4.3 % (0-5); Hematocrit 36.6 % (40-54); Lymphocyte # 2.34 X10^3/ul (4.0); Lymphocyte % 18.2 % (19-41); Mean Corp Hgb Conc 32.8 g/gl (32-36); Mean Corpuscular Hgb 31.2 pg (27.0-32.0); Mean Corpuscular Volume 95.1 fL (80-94); Mean Platelet Vol. 8.2 fl (6.2-12.0); Monocyte# 0.98 X10^3/uL; Monocyte% 7.6 % (0-10); Neutrophil # 8.58 X10^3/uL (2.7-7.7); Neutrophil % 66.9 % (47-70); Platelet Count 570 K/mm3 (150-450); RBC Distribution Width CV 12.8 % (11.6-14.6); RBC Distribution Width SD 43.2 fl (35.1-43.9); Red Blood Count 3.85 M/mm3 (4.6-6.2); White Blood Count 12.8 K/mm3 (4.4-11.0)
[2018-08-23 05:46] LABS: POSITIVE COUNT YES; POSITIVE DIFFERENTIAL NO; POSITIVE MORPHOLOGY YES
[2018-08-23 08:00] VITALS: BP 103/65; PULSE 87; RESP 18; TEMP 36.5; O2SAT 96
[2018-08-23] MEDS: guaiFENesin 1,200 MG Tablet 1200 MG PO (08:56)
[2018-08-23] MEDS: oxyCODONE 5 MG Tablet PO ×2 (08:57→15:01)
--- NOTE | 2018-08-23 10:59 | PCM.DC ---
- Discharge Diagnoses Current Active Problems: Current Active and Chronic Problems (Last Updated 08/19/18 @ 08:21 by Joaquin Djeesus MD) (1) Acute Sepsis secondary to BL LE MRSA and Streptococcal pneumoniae BL Pneumonia and concurrent MRSA Bacteremia, RULED OUT Endocarditis (2) Hypokalemia (3) Tobacco Abuse (4) Polysubstance abuse You will use the following diet at home:: Regular Your food should be the consistency of: Regular Your liquids should be the consistency of: Regular/Thin Discharge Activity: - - Avoid aggressive activity until completion antibiotic therapy and no further dyspnea. May resume sexual activity in: 10-14 days Weight Bearing Status: Weight bearing as tolerated Call your doctor if you observe: Fever of 101 or Higher, Inability to urinate, Inability to have a bowel movement, Shortness of breath, Dizziness, Fainting spells, Chest pain, Uncontrolled pain Instructions: What Is Pneumonia?, Preventing Pneumonia, Pneumonia Treatment, Why Do You Smoke?, Planning to Quit Smoking, Getting Support for Quitting Smoking, Coping with Smoking Withdrawal, Discharge Instructions for Pneumonia Allergies/Adverse Reactions: Allergies seasonal Allergy (Uncoded 08/18/18 22:52) Other Medications to take at Discharge Albuterol IH (ProAir) [Proair Hfa] 1 - 2 puff INHALATION Q4H PRN PRN #1 inhaler 08/20/18 Guaifenesin [Mucinex] 1,200 mg PO BID #20 tablet 08/20/18 Nicotine [Nicoderm] 14 mg TRANSDERM. DAILY #20 patch 08/20/18 Linezolid [Zyvox] 600 mg PO BID #24 tablet 08/23/18 The following prescriptions were given: Albuterol IH (ProAir) [Proair Hfa] 1 - 2 puff INHALATION Q4H PRN PRN #1 inhaler PRN Reason: dyspnea, wheezing Nicotine [Nicoderm] 14 mg TRANSDERM. DAILY #20 patch Guaifenesin [Mucinex] 1,200 mg PO BID #20 tablet Linezolid [Zyvox] 600 mg PO BID #24 tablet Primary Care Physician: Care Physician,No Primary [Primary Care Provider] - Please follow up with your Primary Care Physician in: [facility] within 3-5 days to review admission, establish, f/u. Test Results: Test results from this visit will be discussed in further detail at your follow-up appointment, if applicable. Proposed Discharge Date: 08/23/18
--- NOTE | 2018-08-23 11:08 | CASEMGMT ---
ABBE spoke with patient as he will likely be discharged today. He said he still isn't sure where he will go. He is going to call his grandma. She too is homeless, but is staying with a friend. ABBE told him that [facility] will be assisting him with his discharge prescriptions. Patient cannot go back to [facility] as he was there recently. Once an individual is there and leaves they cannot return for 90 days. Also, they may not even let him back ever as he did cause trouble. Patient is on probation in [place]. Catherine WINCHESTER MSW
--- NOTE | 2018-08-23 11:09 | DCINST_ITS ---
- Discharge Diagnoses Current Active Problems: Current Active and Chronic Problems (Last Updated 08/19/18 @ 08:21 by Joaquin Dejesus MD) (1) Acute Sepsis secondary to BL LE MRSA and Streptococcal pneumoniae BL Pneumonia and concurrent MRSA Bacteremia, RULED OUT Endocarditis (2) Hypokalemia (3) Tobacco Abuse (4) Polysubstance abuse You will use the following diet at home:: Regular Your food should be the consistency of: Regular Your liquids should be the consistency of: Regular/Thin Discharge Activity: - - Avoid aggressive activity until completion antibiotic therapy and no further dyspnea. May resume sexual activity in: 10-14 days Weight Bearing Status: Weight bearing as tolerated Call your doctor if you observe: Fever of 101 or Higher, Inability to urinate, Inability to have a bowel movement, Shortness of breath, Dizziness, Fainting spells, Chest pain, Uncontrolled pain Instructions: What Is Pneumonia?, Preventing Pneumonia, Pneumonia Treatment, Why Do You Smoke?, Planning to Quit Smoking, Getting Support for Quitting Smoking, Coping with Smoking Withdrawal, Discharge Instructions for Pneumonia Allergies/Adverse Reactions: Allergies seasonal Allergy (Uncoded 08/18/18 22:52) Other Medications to take at Discharge Albuterol IH (ProAir) [Proair Hfa] 1 - 2 puff INHALATION Q4H PRN PRN #1 inhaler 08/20/18 Guaifenesin [Mucinex] 1,200 mg PO BID #20 tablet 08/20/18 Nicotine [Nicoderm] 14 mg TRANSDERM. DAILY #20 patch 08/20/18 Linezolid [Zyvox] 600 mg PO BID #24 tablet 08/23/18 The following prescriptions were given: Albuterol IH (ProAir) [Proair Hfa] 1 - 2 puff INHALATION Q4H PRN PRN #1 inhaler PRN Reason: dyspnea, wheezing Nicotine [Nicoderm] 14 mg TRANSDERM. DAILY #20 patch Guaifenesin [Mucinex] 1,200 mg PO BID #20 tablet Linezolid [Zyvox] 600 mg PO BID #24 tablet Primary Care Physician: Care Physician,No Primary [Primary Care Provider] - Please follow up with your Primary Care Physician in: [facility] within 3-5 days to review admission, establish, f/u. Test Results: Test results from this visit will be discussed in further detail at your follow- up appointment, if applicable. Proposed Discharge Date: 08/23/18
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
[2018-08-23] MEDS: Linezolid 600 MG Tablet PO (11:24)
--- NOTE | 2018-08-23 12:04 | NURSING ---
pts grandmother called in at this time asking about pts medical condition. Informed her that pt has been trying to get ahold of her. She stated that she did not want to talk to him at this time. She also stated that she is homeless as well and has been staying with relatives. attempted to transfer call to pt's room so pt could relay medical info, but grandmother hung up.
--- NOTE | 2018-08-23 13:20 | CASEMGMT ---
ABBE spoke with patient and asked if there was a way to get him to [facility] would he want to go there and he said he would. However, he needs his ID and belongings from his grandma. ABBE asked if it was ok for SW to try and he said it is fine. SW tried to call patient's grandma two times, but she did not answer. SW left her 2 voice mails letting her know patient needs his belongings. ABBE checked back with patient and he said his step dad said he would bring in his ID after his appt. He said it may be an hour or two. ABBE told him that is fine and to let SW know when he gets his ID so we can arrange transportation. ABBE updates RN and lithopone charger. Catherine WINCHESTER MSW
[2018-08-23] MEDS: Ipratropium/Albuterol Sulfate 3 ML AMPUL.NEB INHALATION (13:55)
[2018-08-23 13:56] VITALS: PULSE 108; RESP 18; O2SAT 99
[2018-08-23 14:00] VITALS: BP 135/76; PULSE 105; RESP 18; TEMP 37.2; O2SAT 96
[2018-08-23 14:02] LABS: Pathologist Review Reviewed
--- NOTE | 2018-08-23 15:25 | PCM.PN.ID ---
Patient Problems: Active and Suspected Problems (Last Updated 08/19/18 @ 08:21 by Joaquin Dejesus MD) Community acquired pneumonia (Acute) MRSA bacteremia (Acute) Subjective: Feeling ok, mild cough, no fever - Physical Exam General: Alert, Cooperative, No apparent distress Lungs: Clear to auscultation, Normal air movement Cardiovascular: Regular rate, Regular Rhythm Abdomen: Soft, Non Tender, Non-Distended Extremities: No edema Skin: No rashes Vital Signs Temp Pulse Resp BP Pulse Ox 99.0 F 105 H 18 135/76 H 96 08/23/18 14:00 08/23/18 14:00 08/23/18 14:00 08/23/18 14:00 08/23/18 14:00 Oxygen Delivery Method Room Air Weight: 53.2 kg Body Mass Index (BMI) 18.8 Intake and Output for Last 24 Hours 08/21/18 08/22/18 08/23/18 23:59 23:59 23:59 Intake Total 2503 / 2503 2781 / 2781 733 / 733 Balance 2503 / 2503 2781 / 2781 733 / 733 Microbiology Past 72 Hours 08/21/18 10:05 Blood Culture - Preliminary Blood Culture (Wb) - Anticubital Left No growth in 48 hours. 08/19/18 14:35 Gram Stain - Final Sputum, Expectorated/Coughed Respiratory Culture - Final Meth. resistant Staph. aureus Streptococcus pneumoniae 08/19/18 08:25 Bacteria Detection (PCR) - Final Blood Culture (Wb) - Anticubital Left Staphylococcus aureus mecA Resistance Marker Blood Culture - Preliminary Meth. resistant Staph. aureus 08/19/18 08:35 Blood Culture - Preliminary Blood Culture (Wb) - Left Hand No growth in 48 hours. Laboratory Tests Past 24 Hrs 08/23/18 08/23/18 05:10 05:10 WBC 12.8 H RBC 3.85 L Hgb 12.0 L Hct 36.6 L MCV 95.1 H MCH 31.2 MCHC 32.8 RDW 12.8 RDW Differential 43.2 Plt Count 570 H MPV 8.2 Immature Gran % (Auto) 2.500 H Neut % (Auto) 66.9 Lymph % (Auto) 18.2 L [place] % (Auto) 7.6 Eos % (Auto) 4.3 Baso % (Auto) 0.5 Absolute Neuts (auto) 8.6 H Absolute Lymphs (auto) 2.34 Total Counted Not Reportable Diff Path Review Reviewed Sodium 142 Potassium 4.2 Chloride 111 H Carbon Dioxide 23.0 Anion Gap 8 BUN 12 Creatinine 0.60 L Estim Creat Clear Calc 124.38 Est GFR (MDRD) Af Amer 193 Est GFR (MDRD) Non-Af 160 BUN/Creatinine Ratio 20.0 Glucose 90 Calcium 8.1 L Total Bilirubin 0.30 AST 58 H ALT 103 H Alkaline Phosphatase 77 Total Protein 6.2 L Albumin 2.2 L Globulin 4.0 Albumin/Globulin Ratio 0.6 L Medical Necessity - Tobacco Use Smoking Status: Current every day smoker Tobacco Use: Cigarettes Route of nutrition/ use of supplements: [] Nutritional Intake: [] IV Site: [] Knapp Catheter: [] - Assessment/Plan Antibiotics: [] Assessment/Plan: [] Active and Suspected Problems (Last Updated 08/19/18 @ 08:21 by Joaquin Dejesus MD) Community acquired pneumonia (Acute) MRSA bacteremia due to pneumonia. Sputum with s.pneumo and MRSA. Overall improving. TTE neg for veg. Repeat bcx neg so far. Ok for d/c home on po linezolid for 12 more days. Rx written. Will follow, d/w Dr. Romo
== END 2018-08-23 17:03 | disposition home or self-care (01) | DRG 871 ==
LOC: ED 08-19 00:13 → PCU 08-19 04:08
PROVIDERS: Admitting Provider Hospitalist; Emergency Provider Emergency Medicine; Referring Provider Hospitalist; Visit Provider Family Medicine
DX: A41.02 Sepsis due to Methicillin resistant Staphylococcus aureus (principal); J15.212 Pneumonia due to Methicillin resistant Staphylococcus aureus; J13 Pneumonia due to Streptococcus pneumoniae; F17.210 Nicotine dependence, cigarettes, uncomplicated; F19.10 Other psychoactive substance abuse, uncomplicated; E87.6 Hypokalemia
CPT/HCPCS: 36415; 71046; 71275; 80048; 80053; 80202; 83605; 85025; 85027; 86703; 86704; 86705; 86706; 86708; 86709; 86803; 87040; 87070; 87077; 87149; 87186; 87205; 87340; 87449; 93306; 94640; 94667; 94668; 99285; 99406; J7030; J7040; J7050; Q9957; Q9967; A4216; J2405

== ENCOUNTER 2018-10-11 23:58 | Emergency (ER) | payer MEDICAID, SELFPAY ==
[2018-08-19 05:09] VITALS: BMI 18.8
[2018-10-11 23:59] VITALS: BP 135/79; PULSE 108; RESP 16; TEMP 36.8; O2SAT 93; BMI 17.9
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
[2018-10-12 01:29] LABS: Absolute Lymphocyte Count 0.76 X10^3/ul (0.83-4.51); Absolute Neutrophil Count 5.6 X10^3/uL (2.0-7.7); Basophil# 0.04 X10^3/uL; Basophil% 0.6 % (0-1); Eosinophils% 1.4 % (0-5); Hematocrit 39.8 % (40-54); Hemoglobin 13.6 g/dl (13.0-16.5); Lymphocyte # 0.76 X10^3/ul (4.0); Lymphocyte % 10.5 % (19-41); Mean Corp Hgb Conc 34.2 g/gl (32-36); Mean Corpuscular Hgb 30.8 pg (27.0-32.0); Mean Platelet Vol. 8.6 fl (6.2-12.0); Monocyte# 0.69 X10^3/uL; Monocyte% 9.5 % (0-10); Neutrophil # 5.64 X10^3/uL (2.7-7.7); Neutrophil % 77.9 % (47-70); POSITIVE COUNT NO; POSITIVE DIFFERENTIAL NO; POSITIVE MORPHOLOGY NO; Platelet Count 297 K/mm3 (150-450); RBC Distribution Width CV 13.2 % (11.6-14.6); Red Blood Count 4.42 M/mm3 (4.6-6.2); White Blood Count 7.2 K/mm3 (4.4-11.0)
[2018-10-12 01:44] LABS: BUN 20 mg/dL (7-18); Creatinine, Serum 0.93 mg/dL (0.70-1.30); Glucose 81 mg/dL (74-106)
[2018-10-12 01:45] LABS: ALB/GLOB Ratio 1.1 RATIO (0.9-2.4); AST(SGOT) 21 U/L (15-37); Alanine Aminotransfer ALT/SGPT 24 U/L (16-61); Albumin, Serum 3.9 g/dL (3.2-5.0); Alkaline Phosphatase 93 U/L (45-117); Anion Gap 7 (5-15); BUN/Creat Ratio 21.4 RATIO (10-20); Calcium,Total 8.9 mg/dL (8.5-10.1); Chloride 106 mmol/L (98-107); EST Glomerular Filtration Rate 96 mL/min (>60); Est Glom Filt Rate - Afr Amer 116 mL/min (>60); Estimated Creatinine Clearance 76.17 ml/min; Globulin 3.7 g/dL (2.2-4.2); Potassium 3.5 mmol/L (3.5-5.1); Protein, Total 7.6 g/dL (6.4-8.2); Sodium Level 142 mmol/L (136-145)
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
[2018-10-12 03:17] VITALS: BP 130/78; PULSE 87; RESP 16; O2SAT 97
== END 2018-10-12 03:19 | disposition home or self-care (01) ==
PROVIDERS: Emergency Provider Emergency Medicine
DX: S20.229A Contusion of unspecified back wall of thorax, initial encounter (principal); S09.90XA Unspecified injury of head, initial encounter; Y04.2XXA Assault by strike against or bumped into by another person, initial encounter; Y93.9 Activity, unspecified; Y92.89 Other specified places as the place of occurrence of the external cause; Y99.9 Unspecified external cause status
CPT/HCPCS: 70450; 72125; 73090; 80053; 80320; 85025; 85610; 99285; G0480

== ENCOUNTER 2019-02-01 16:09 | Observation (INO) | payer MEDICAID, SELFPAY ==
[2019-02-01 16:12] VITALS: BP 122/66; PULSE 122; RESP 18; TEMP 37.9; O2SAT 97; BMI 20.7
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
[2019-02-01] MEDS: 0.9% Normal Saline 1,000 ML 1000 ML IV (16:42)
[2019-02-01 16:45] VITALS: PULSE 112; RESP 16; O2SAT 100
[2019-02-01] MEDS: Ondansetron 4 MG/2 ML Vial IV (16:48)
[2019-02-01] MEDS: Morphine 4 MG/ML Syringe IV (16:49)
[2019-02-01 17:07] LABS: ALB/GLOB Ratio 1.1 RATIO (0.9-2.4); AST(SGOT) 98 U/L (15-37); Alanine Aminotransfer ALT/SGPT 270 U/L (16-61); Albumin, Serum 3.6 g/dL (3.2-5.0); Alkaline Phosphatase 89 U/L (45-117); Anion Gap 7 (5-15); BUN 22 mg/dL (7-18); BUN/Creat Ratio 26.7 RATIO (10-20); Calcium,Total 8.2 mg/dL (8.5-10.1); Chloride 105 mmol/L (98-107); Creatinine, Serum 0.82 mg/dL (0.70-1.30); EST Glomerular Filtration Rate 110 mL/min (>60); Est Glom Filt Rate - Afr Amer 133 mL/min (>60); Estimated Creatinine Clearance 99.73 ml/min; Globulin 3.3 g/dL (2.2-4.2); Glucose 97 mg/dL (74-106); Potassium 3.2 mmol/L (3.5-5.1); Protein, Total 6.9 g/dL (6.4-8.2); Sodium Level 137 mmol/L (136-145)
[2019-02-01 17:10] LABS: Eosinophils% 1.2 % (0-5); Hematocrit 34.1 % (40-54); Hemoglobin 11.8 g/dL (13.0-16.5); Lymphocyte % 17.8 % (19-41); Mean Corp Hgb Conc 34.6 g/dL (32-36); Mean Corpuscular Hgb 31.5 pg (27.0-32.0); Mean Corpuscular Volume 90.9 fL (80-94); Mean Platelet Vol. 8.8 fl (6.2-12.0); Monocyte% 12.4 % (0-10); POSITIVE COUNT NO; POSITIVE DIFFERENTIAL NO; POSITIVE MORPHOLOGY NO; Platelet Count 248 K/mm3 (150-450); RBC Distribution Width CV 13.2 % (11.6-14.6); RBC Distribution Width SD 44.4 fl (35.1-43.9); Red Blood Count 3.75 M/mm3 (4.6-6.2)
[2019-02-01 17:11] LABS: Absolute Lymphocyte Count 2.13 X10^3/uL (0.83-4.51); Absolute Neutrophil Count 8.1 X10^3/uL (2.0-7.7); Basophil# 0.03 X10^3/uL; Basophil% 0.3 % (0-1); Eosinophil# 0.14 X10^3/uL; Lactic Acid 0.9 mmol/L (0.4-2.0); Lymphocyte # 2.13 X10^3/ul (4.0); Monocyte# 1.48 X10^3/uL; Neutrophil # 8.14 X10^3/uL (2.7-7.7)
[2019-02-01 18:07] VITALS: PULSE 107; O2SAT 99
[2019-02-01 18:11] LABS: Bacteria 0 SEEN /hpf (None Seen); Mucous, Urine 0 SEEN /hpf (<or=2+); Red Blood Cells-Urine 0 SEEN /hpf (0-5)
[2019-02-01 18:23] LABS: Color, Urine Yellow (Yellow); Glucose, Dipstick Normal (Normal); Ketone-Dipstick 50 mg/dl (Negative); Leukocyte Esterase-Dipstick 25 /ul (Negative); Nitrite-Dipstick Negative (Negative); Occult Blood-Urine Negative /ul (Negative); Protein-Dipstick 15 mg/dl (Negative); Urine Bilirubin Dipstick Negative (Negative); Urine Clarity Clear (Clear); Urine Urobilinogen 1 mg/dl (Normal)
[2019-02-01 18:36] LABS: Squamous Epithelial Cells - UA 0-5 SEEN /hpf (0-5); White Blood Cells 0-5 SEEN /hpf (0-5)
[2019-02-01 18:41] LABS: Amphetamine Urine VISTA POSITIVE (<1000 ng/mL); Barbiturate Urine VISTA NEGATIVE (< 200 ng/mL); Benzodiazepine Urine VISTA NEGATIVE (< 200 ng/mL); Cocaine Urine VISTA NEGATIVE (< 300 ng/mL); Ecstacy Urine VISTA NEGATIVE (< 500 ng/mL); Methadone Urine VISTA NEGATIVE (< 300 ng/mL); PCP Urine VISTA NEGATIVE (< 25 ng/mL); THC Urine VISTA POSITIVE (< 50 ng/mL); Vista UDS pH Range 5
[2019-02-01] MEDS: Ceftriaxone 1 GM/50 ML BAG IV (19:13)
[2019-02-01 19:19] VITALS: BP 107/68; PULSE 95; RESP 16; TEMP 36.9; O2SAT 99
[2019-02-01 19:22] VITALS: BMI 20.7
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
[2019-02-01 19:41] VITALS: BMI 20.7
--- NOTE | 2019-02-01 20:06 | PCM.RX.CS ---
Consult Pharmacy has been consulted to manage selected antiobiotic: Vancomycin Type of Consult: New start Suspected Infection: Skin/Soft tissue Prior Doses of Antibiotics Received/Current Regimen: VANCOMYCIN 750MG X1 IN ED 02/01/19 @1943 Labs: Sodium 137 mmol/L (136-145) 02/01/19 16:35 Potassium 3.2 mmol/L (3.5-5.1) L 02/01/19 16:35 Chloride 105 mmol/L (98-107) 02/01/19 16:35 Carbon Dioxide 25.0 mmol/L (21.0-32.0) 02/01/19 16:35 Anion Gap 7 (5-15) 02/01/19 16:35 BUN 22 mg/dL (7-18) H 02/01/19 16:35 Creatinine 0.82 mg/dL (0.70-1.30) 02/01/19 16:35 Est GFR (MDRD) Af Amer 133 mL/min (>60) 02/01/19 16:35 Est GFR (MDRD) Non-Af 110 mL/min (>60) 02/01/19 16:35 BUN/Creatinine Ratio 26.7 RATIO (10-20) H 02/01/19 16:35 Glucose 97 mg/dL (74-106) 02/01/19 16:35 Weight used for dosin kg Estimated Creatinine Clearance: 99 ML/MIN Goal Trough: 15-20 mcg/mL Pharmacy Plan for Drug Dosing: PLAN/RECOMMENDATIONS 1. Vancomycin 750mg q8h to start 02/02/19 @0400 2. Trough prior to 4th dose per protocol 02/02/19 @1930 3. Pharmacy Service will continue to monitor and adjust dosing as required.
[2019-02-01] MEDS: Ketorolac 15 MG/ML Vial IV (20:33)
[2019-02-01] MEDS: Cefazolin 1 GM/50 ML BAG IV (21:25)
[2019-02-01] MEDS: 0.9% Normal Saline 1,000 ML 150 ML IV (21:25)
[2019-02-02 03:22] VITALS: BP 90/51; PULSE 78; RESP 16; TEMP 36.6; O2SAT 95
[2019-02-02] MEDS: Cefazolin 1 GM/50 ML BAG IV ×2 (04:59→13:44)
[2019-02-02 06:22] LABS: Absolute Lymphocyte Count 1.76 X10^3/uL (0.83-4.51); Absolute Neutrophil Count 2.9 X10^3/uL (2.0-7.7); Basophil# 0.03 X10^3/uL; Basophil% 0.5 % (0-1); Eosinophil# 0.71 X10^3/uL; Eosinophils% 11.6 % (0-5); Hematocrit 32.7 % (40-54); Lymphocyte # 1.76 X10^3/ul (4.0); Lymphocyte % 28.8 % (19-41); Mean Corp Hgb Conc 33.6 g/dL (32-36); Mean Corpuscular Hgb 31.1 pg (27.0-32.0); Mean Corpuscular Volume 92.4 fL (80-94); Mean Platelet Vol. 9.1 fl (6.2-12.0); Monocyte% 11.4 % (0-10); NRBC Flagged by Analyzer 0 % (0-5); Neutrophil # 2.89 X10^3/uL (2.7-7.7); Neutrophil % 47.2 % (47-70); Platelet Count 203 K/mm3 (150-450); RBC Distribution Width CV 13.5 % (11.6-14.6); Red Blood Count 3.54 M/mm3 (4.6-6.2); White Blood Count 6.1 K/mm3 (4.4-11.0)
[2019-02-02 06:44] LABS: ALB/GLOB Ratio 0.9 RATIO (0.9-2.4); AST(SGOT) 68 U/L (15-37); Alanine Aminotransfer ALT/SGPT 181 U/L (16-61); Albumin, Serum 2.5 g/dL (3.2-5.0); Alkaline Phosphatase 68 U/L (45-117); Anion Gap 7 (5-15); BUN 17 mg/dL (7-18); BUN/Creat Ratio 28.8 RATIO (10-20); Calcium,Total 7.6 mg/dL (8.5-10.1); Chloride 111 mmol/L (98-107); Creatinine, Serum 0.59 mg/dL (0.70-1.30); EST Glomerular Filtration Rate 162 mL/min (>60); Est Glom Filt Rate - Afr Amer 196 mL/min (>60); Estimated Creatinine Clearance 138.91 ml/min; Globulin 2.7 g/dL (2.2-4.2); Glucose 94 mg/dL (74-106); Potassium 3.6 mmol/L (3.5-5.1); Protein, Total 5.2 g/dL (6.4-8.2); Sodium Level 144 mmol/L (136-145)
[2019-02-02 10:25] VITALS: BP 109/69; PULSE 89; RESP 18; TEMP 36.8; O2SAT 98
[2019-02-02] MEDS: Enoxaparin 40 MG/0.4 ML Syringe SC (10:26)
[2019-02-02] MEDS: 0.9% NaCl IVPB Med Flush (250 mL) 15 ML IV (12:10)
[2019-02-02] MEDS: 0.9% NaCl Peripheral Flush Adult/Peds IV (12:13)
[2019-02-02] MEDS: Ketorolac 15 MG/ML Vial IV (12:13)
--- NOTE | 2019-02-02 13:51 | PCA ---
pt off floor
[2019-02-02 14:25] VITALS: BP 102/60; PULSE 86; RESP 16; TEMP 36.7; O2SAT 98
--- NOTE | 2019-02-02 16:16 | DCINST_ITS ---
- Discharge Diagnoses Current Active Problems: Current Active and Chronic Problems (Last Reviewed 02/01/19 @ 19:30 by Edmundo Montague DO) Sepsis (Acute) Cellulitis of left lower extremity without foot (Acute) You will use the following diet at home:: No restrictions Your food should be the consistency of: Regular Your liquids should be the consistency of: Regular/Thin Discharge Activity: Return to Normal Activity Allergies/Adverse Reactions: Allergies bee venom protein (honey bee) Allergy (Verified 02/01/19 19:48) Anaphylaxis seasonal Allergy (Uncoded 02/01/19 16:11) Other Medications to take at Discharge Doxycycline [Vibramycin] 100 mg PO BID #21 cap 02/02/19 The following prescriptions were given: Doxycycline [Vibramycin] 100 mg PO BID #21 cap Transmission Status: Pending to [facility] Primary Care Physician: Care Physician,No Primary [Primary Care Provider] - Please follow up with your Primary Care Physician in: in 1-2 weeks Test Results: Test results from this visit will be discussed in further detail at your follow- up appointment, if applicable.
--- NOTE | 2019-02-03 18:43 | PCM.DC.SUM ---
Discharge Date and Diagnosis Date of Admission: 02/01/19 Date of Discharge: 02/02/19 - Primary Discharge Diagnosis #1 bilateral lower leg cellulitis-suspect to be secondary to gram-positive bacteria #2 polysubstance abuse Hospital Course and Treatment Operations: None Procedures: None Summary of Care Provided: The patient is a 38 year old M seen in the emergency room at [facility] with chief complaint of redness warmth and discomfort to his lower legs. Work-up in the emergency room showed the patient's white blood cell count to be slightly elevated, potassium was slightly low at 3.2. Patient was noted on examination of redness over his lower legs. Tox screen was performed on the patient, he was positive for opiates, amphetamines, and cannabinoids. Patient states that he does use speed but he does not know how he was positive for opiates. Patient was admitted to [place] [address], placed on IV antibiotics, and on 02/02/2019, he was seen and examined: On examination he appeared in good health and spirits. Vital signs as documented. Skin warm and dry and without overt rashes. Neck without JVD. Lungs clear. Heart exam notable for regular rhythm, normal sounds and absence of murmurs, rubs or gallops. Abdomen unremarkable and without evidence of organomegaly, masses, or abdominal aortic enlargement. Extremities-both lower legs are reddened from an area just above the ankles to the mid calf area., There is mild edema of the area and there is warmth of the area.. Neuro: Cranial nerves II through XII are grossly intact, no focal motor deficits were noted, sensation to light touch and pinprick intact. Psych: Patient is alert and oriented x3, he does not appear anxious or depressed On 02/02/2019, patient requested discharge home due to the fact that he stated he needed to move from his present housing and did not have any help the following day and so he requested discharge home. Since his white blood cell count was improved and the patient's cellulitis areas did not appear to be very severe, I agreed with the discharge. On 02/02/2019, patient was discharged home in stable condition - Physical Exam Vital Signs Temp Pulse Resp BP Pulse Ox 98.1 F 86 16 102/60 98 02/02/19 14:25 02/02/19 14:25 02/02/19 14:25 02/02/19 14:25 02/02/19 14:25 Oxygen Delivery Method Room Air Weight: 58.423 kg Body Mass Index (BMI) 20.7 Intake and Output for Last 24 Hours 02/01/19 02/02/19 02/03/19 23:59 23:59 23:59 Intake Total 1365 / 1665 2363.5 / 2363.5 Output Total 400 / 400 Balance 1365 / 1665 1963.5 / 1963.5 Discharge Activity: Return to Normal Activity Home Medications: Medications to take at Discharge Doxycycline [Vibramycin] 100 mg PO BID #21 cap 02/02/19 Following Prescrptions Were Given to Patient: Doxycycline [Vibramycin] 100 mg PO BID #21 cap Transmission Status: Received by [facility] Primary Care Physician: Care Physician,No Primary [Primary Care Provider] - Please follow up with your Primary Care Physician in: in 1-2 weeks Disposition: Home Minutes spent on discharge:: 32 Patient Condition:: Stable Medical Necessity - Tobacco Use Smoking Status: Heavy Smoker (>10/day) Tobacco Use: Cigarettes Meaningful Use Info Meaningful Use Diagnoses (Choose all that apply): None applicable Code Visit Inpatient E&M: 87357 Disch Hosp
[2019-02-05 12:07] LABS: HEPATITIS B SURFACE AG Confirm. indicated (Negative)
[2019-02-06 12:22] LABS: Hep C Antibodies 2.1 s/co ratio (0.0-0.9)
[2019-02-06 13:19] LABS: Hepatitis A IgM Antibody Negative (Negative)
[2019-02-06 15:01] LABS: Hepatitis B Core AB IgM Negative (Negative)
== END 2019-02-02 18:00 | disposition home or self-care (01) ==
LOC: ED 16:34 → MS3 21:44
PROVIDERS: Emergency Provider Emergency Medicine; Visit Provider Internal Medicine
DX: L03.115 Cellulitis of right lower limb (principal); L03.116 Cellulitis of left lower limb; F17.210 Nicotine dependence, cigarettes, uncomplicated; S80.812A Abrasion, left lower leg, initial encounter; V29.9XXA Motorcycle rider (driver) (passenger) injured in unspecified traffic accident, initial encounter; Y93.9 Activity, unspecified; Y92.9 Unspecified place or not applicable; I10 Essential (primary) hypertension; Z86.14 Personal history of Methicillin resistant Staphylococcus aureus infection; B17.9 Acute viral hepatitis, unspecified; F11.10 Opioid abuse, uncomplicated; F15.10 Other stimulant abuse, uncomplicated
CPT/HCPCS: 36415; 71046; 73590; 80053; 80074; 80307; 81001; 83605; 85025; 87040; 96361; 96365; 96366; 96367; 96372; 96375; 96376; 97802; 99218; 99283; 99406; J7030; J7050; A4216; G0378; J2405

== ENCOUNTER 2020-04-03 15:10 | Inpatient (IN) | payer MEDICAID, SELFPAY ==
[2020-04-03] VITALS (17 sets, daily range): BP systolic 103–128; BP diastolic 63–82; PULSE 80–123; RESP 13–166; TEMP 36.5–38.1; O2SAT 9–100; BMI 19.8; BMI 19.2
--- NOTE | 2020-04-03 15:24 | EKG12_ITS ---
Test Reason : SOB Blood Pressure : / mmHG Vent. Rate : 108 BPM Atrial Rate : 108 BPM P-R Int : 140 ms QRS Dur : 082 ms QT Int : 326 ms P-R-T Axes : 076 068 066 degrees QTc Int : 436 ms Sinus tachycardia Otherwise normal ECG Confirmed by BELLA JENSEN, SHANDRA ([id number]), newspaper managing editor ROCÍO PUENTE ([id number]) on 04/06/2020 2:21:03 PM Referred By: Rachel Garcia Confirmed By:SHANDRA BLANCO MD
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
--- NOTE | 2020-04-03 15:27 | ED.DCSUM_ITS ---
History of Present Illness Chief Complaint: Shortness of Breath Narrative: 39-year-old male with past medical history of IV drug abuse presents with concern for cough, shortness of breath, abdominal pain, fever, chills. States is been present over the past 2 days. States he has had nausea without vomiting. Does admit to abdominal pain in his right lower quadrant. States it is aching in nature. Denies any urinary symptoms. Patient has had shortness of breath with cough. States the cough has been minimally productive. Patient does use IV drugs. Past Medical History - Allergies and Home Meds Allergies/Adverse Reactions: Allergies bee venom protein (honey bee) Allergy (Verified 04/03/20 15:12) Anaphylaxis seasonal Allergy (Uncoded 04/03/20 15:12) Other Primary Care Physician: Care Physician,No Primary [Primary Care Provider] - Past Medical History: None Surgical History: tonsillectomy, - - Collarbone surgery with cadaver. Lives: Alone Smoking Status: Heavy Smoker (>10/day) Alcohol: None Drugs: Heroin - Family History Maternal Family History: Reports: Diabetes, Heart Disease Paternal Family History: Reports: - - Patient denies knowledge of paternal medical history. Review of Systems General: Reports: Fever. Denies: Chills, Sweats Eyes: Denies: Visual changes - bilaterally, Diplopia ENT: Denies: Rhinorrhea, Sore throat Cardiovascular: Denies: Chest pain, Palpitations Respiratory: Reports: Dyspnea, Cough. Denies: Dyspnea on exertion Gastrointestinal: Reports: Abdominal pain, Nausea. Denies: Vomiting, Diarrhea, Melena, Hematochezia Genitourinary: Denies: Dysuria, Hematuria, Frequency Musculoskeletal: Denies: Back pain, Extremity Pain Skin: Denies: Rash, Wounds Neurological: Denies: Headache, Weakness, Numbness Physical Exam Vital Signs/Narrative: Vital Signs Temp Pulse Resp BP Pulse Ox 04/03/20 15:17 121 H 22 H 96 04/03/20 15:13 100.6 F H 123 H 23 H 128/82 H 95 Inital Vital Signs reviewed: Yes General: Well nourished, Well developed, No Acute Distress Head: Normocephalic, Atraumatic Eyes: Perrl, EOMI ENT: Moist mucous membranes, No rhinorrhea Neck: Supple, Nontender Cardiovascular: Regular rate, Regular rhythm, No murmurs Respiratory: No distress, CTA bilaterally, Chest nontender Abdomen: Soft, Nondistended, Normal bowel sounds, - - RLQ tenderness Back: Nontender, Normal Inspection Extremities: Nontender, No edema Skin: Normal color, No rash Neurological: Alert, Oriented x3, Cranial nerves II-XII grossly intact, Normal Strength, Normal Sensation Psychological: Normal affect, Normal Mood Diagnostic/Tx/Re-eval Chest X-Ray - ED: 1 View, Read by ED Physician, Right Infiltrate Clinical Impression(s) from Imaging Studies Abdomen/Pelvis CT 04/03/20 15:26 IMPRESSION: Right lower lobe pneumonia with a small right pleural effusion. Electronically Signed: Yovany Soria MD at 17:30 EST Tel , Service support , Chest X-Ray 04/03/20 16:05 IMPRESSION: Right lower lobe pneumonia. Electronically Signed: Yovany Soria MD at 16:35 EST Tel , Service support , Laboratory Data 04/03/20 04/03/20 04/03/20 15:28 15:28 15:28 WBC 31.3 H* RBC 4.29 L Hgb 13.1 Hct 38.1 L MCV 88.8 MCH 30.5 MCHC 34.4 RDW Std Deviation 37.9 RDW Coeff of Vaibhav 11.8 Plt Count 385 MPV 8.7 Immature Gran % (Auto) 3.500 H Neut % (Auto) 85.0 H Lymph % (Auto) 4.5 L Kershaw % (Auto) 6.6 Eos % (Auto) 0.1 Baso % (Auto) 0.3 Absolute Neuts (auto) 26.7 H Absolute Lymphs (auto) 1.40 Nucleated RBC % 0 Differential Comment SCANNED Diff Path Review September PT 14.9 INR 1.2 APTT 34.7 Sodium 132 L Potassium 3.7 Chloride 99 Carbon Dioxide 29.0 Anion Gap 4 L BUN 11 Creatinine 0.86 Estim Creat Clear Calc 89.95 Est GFR (MDRD) Af Amer 126 Est GFR (MDRD) Non-Af 104 BUN/Creatinine Ratio 12.8 Glucose 130 H Lactic Acid Calcium 9.0 Total Bilirubin 1.10 H AST 19 ALT 15 L Alkaline Phosphatase 100 Troponin I < 0.015 Total Protein 7.8 Albumin 3.1 L Globulin 4.7 H Albumin/Globulin Ratio 0.7 L 04/03/20 15:28 WBC RBC Hgb Hct MCV MCH MCHC RDW Std Deviation RDW Coeff of Avibhav Plt Count MPV Immature Gran % (Auto) Neut % (Auto) Lymph % (Auto) Kershaw % (Auto) Eos % (Auto) Baso % (Auto) Absolute Neuts (auto) Absolute Lymphs (auto) Nucleated RBC % Differential Comment Diff Path Review PT INR APTT Sodium Potassium Chloride Carbon Dioxide Anion Gap BUN Creatinine Estim Creat Clear Calc Est GFR (MDRD) Af Amer Est GFR (MDRD) Non-Af BUN/Creatinine Ratio Glucose Lactic Acid 1.2 Calcium Total Bilirubin AST ALT Alkaline Phosphatase Troponin I Total Protein Albumin Globulin Albumin/Globulin Ratio - Rhythm Strip Rhythm Strip: Sinus Tach Rate: 108 Ectopy: None - EKG Initial EKG Interpretation: Sinus Tachycardia - Sinus tachycardia to 108 bpm. [place] interval 140 ms. QTC of [address] changes. - Medical Decision Making Patient appears ill. Vital signs upon arrival are tachycardia and febrile. Patient given 1 L of normal saline and Tylenol. Patient is an IV drug abuser so 3 blood cultures will be drawn. Lab work is concerning for significant leukocytosis of 31,000. Patient was given Zosyn and vancomycin. Chest x-ray shows a right lower lobe infiltrate. CT of the abdomen shows no acute process. Patient's heart rate is improved but is still not making any urine. Patient was given another 1 L of normal saline. Patient will be admitted for sepsis secondary to community-acquired pneumonia. Stable at time of admission. Impression: 1. Sepsis 2. Pneumonia 3. History of IV drug abuse ED Disposition - Plan for ED Patient: Disposition: Acute Care [facility] Referrals: Care Physician,No Primary [Primary Care Provider] -
[2020-04-03] MEDS: 0.9% Normal Saline 1,000 ML 999 ML IV ×4 (15:35→20:33)
[2020-04-03] MEDS: Acetaminophen 500 MG Tablet 1000 MG PO (15:36)
[2020-04-03] MEDS: Ondansetron 4 MG/2 ML Vial IV (15:36)
[2020-04-03 15:59] LABS: Absolute Neutrophil Count 26.7 X10^3/uL (2.0-7.7); Basophil# 0.08 X10^3/uL; Basophil% 0.3 % (0-1); Eosinophil# 0.03 X10^3/uL; Eosinophils% 0.1 % (0-5); Hematocrit 38.1 % (40-54); Hemoglobin 13.1 g/dL (13.0-16.5); Lymphocyte % 4.5 % (19-41); Mean Corp Hgb Conc 34.4 g/dL (32-36); Mean Corpuscular Hgb 30.5 pg (27.0-32.0); Mean Corpuscular Volume 88.8 fL (80-94); Mean Platelet Vol. 8.7 fl (6.2-12.0); Monocyte# 2.07 X10^3/uL; Monocyte% 6.6 % (0-10); NRBC Flagged by Analyzer 0 % (0-5); Neutrophil # 26.66 X10^3/uL (2.7-7.7); POSITIVE COUNT YES; POSITIVE DIFFERENTIAL YES; Platelet Count 385 K/mm3 (150-450); RBC Distribution Width CV 11.8 % (11.6-14.6); RBC Distribution Width SD 37.9 fl (35.1-43.9); Red Blood Count 4.29 M/mm3 (4.6-6.2)
[2020-04-03 16:01] LABS: Differential Indicated SCAN CRITERIA MET
--- NOTE | 2020-04-03 16:05 | RAD_ITS ---
STUDY: X-RAY CHEST REASON FOR EXAM: Male, 39 years old. SOB, RT RIB PAIN. PT IV DRUG USER. TECHNIQUE: Single AP portable view of the chest. COMPARISON: 02/01/2019 FINDINGS: Alveolar opacity in the lower right lung consistent with right lower lobe pneumonia. There is no demonstrated pleural abnormality. Normal size heart. Normal mediastinum and ismael. Normal visualized pulmonary arteries. Normal visualized aortic arch and descending thoracic aorta. Normal visualized thoracic spine. Normal visualized ribs, clavicles, and shoulders. There is no demonstrated abnormality of the visualized soft tissue structures of the upper abdomen. RAD/Chest 1 View (Portable) IMPRESSION: Right lower lobe pneumonia. Electronically Signed: Yovany Soria MD at 16:35 EST Tel , Service support ,
[2020-04-03 16:06] LABS: White Blood Count 31.3 K/mm3 (4.4-11.0)
[2020-04-03 16:10] LABS: International Normalized Ratio 1.2; Prothrombin Time (Protime)PT. 14.9 SECONDS (11.7-14.9)
[2020-04-03 16:11] LABS: Partial Thromboplast Time 34.7 Seconds (24.1-36.2)
[2020-04-03 16:16] LABS: ALB/GLOB Ratio 0.7 RATIO (0.9-2.4); AST(SGOT) 19 U/L (15-37); Alanine Aminotransfer ALT/SGPT 15 U/L (16-61); Albumin, Serum 3.1 g/dL (3.2-5.0); Alkaline Phosphatase 100 U/L (45-117); Anion Gap 4 (5-15); BUN 11 mg/dL (7-18); BUN/Creat Ratio 12.8 RATIO (10-20); Chloride 99 mmol/L (98-107); Creatinine, Serum 0.86 mg/dL (0.70-1.30); EST Glomerular Filtration Rate 104 mL/min (>60); Est Glom Filt Rate - Afr Amer 126 mL/min (>60); Estimated Creatinine Clearance 89.95 ml/min; Globulin 4.7 g/dL (2.2-4.2); Glucose 130 mg/dL (74-106); Potassium 3.7 mmol/L (3.5-5.1); Protein, Total 7.8 g/dL (6.4-8.2); Sodium Level 132 mmol/L (136-145)
[2020-04-03 16:18] LABS: Lactic Acid 1.2 mmol/L (0.4-1.9)
[2020-04-03 16:32] LABS: Differential Comment SCANNED
--- NOTE | 2020-04-03 18:00 | ED.RN ---
Dr aware that pt has not given urine sample at this time, no order to cath at this time.
--- NOTE | 2020-04-03 18:07 | PCM.HP.STD ---
<Mague Rodríguez NURSE WOUND - Last Filed: 04/03/20 18:34> Problem List (1) Community acquired pneumonia Status: Acute (2) MRSA bacteremia Status: Resolved (3) Sepsis Status: Acute (4) Cellulitis of left lower extremity without foot Status: Resolved History of Present Illness Date of Admission: 04/03/20 Chief Complaint: Shortness of breath, cough, fever. The patient is a 39 year old M who presents emergency room due to shortness of breath, cough, fever, malaise. Patient reports these symptoms developed over the past 24 hours. He complains of associated nausea. Denies vomiting, diarrhea. Complains of right-sided rib pain with cough. Patient admits to IV drug use with last use 1 to 2 days ago. Patient states he uses IV fentanyl, methamphetamine and anything he can get. He is unable to tell me how much fentanyl he has been using. Patient drowsy during assessment and responds very briefly during HPI questions. He denies Covid exposure. States he is currently living with friends. Patient was admitted July 2018 due to strep pneumoniae pneumonia and MRSA bacteremia. Past Medical History Past Medical History (Chronic Problems): Chronic Problems (Last Reviewed 02/01/19 @ 19:[address] Edmundo Montague DO) IVDU (intravenous drug user) (Chronic) Hepatitis C (Chronic) Medical History: Medical History (Last Reviewed 02/01/19 @ 19:[address] Edmundo Montague DO) Hypertension I10 Allergies bee venom protein (honey bee) Allergy (Verified 04/03/20 15:12) Anaphylaxis seasonal Allergy (Uncoded 04/03/20 15:12) Other Home Medications: Ambulatory Orders Medication Instructions Recorded NK 04/03/20 Surgical History: tonsillectomy, - - Collarbone surgery with cadaver. Psychiatric History: No pertinent psych hx Lives: Friends Smoking Status: Heavy Smoker (>10/day) Tobacco Use: Cigarettes Alcohol: None Drugs: Heroin, - - Methamphetamine, marijuana - *Family History Maternal History Items: Diabetes, Heart Disease Paternal History Items: - - Patient denies knowledge of paternal medical history including cardiac history. Review of Systems Constitutional: Reports: Chills, Fever, Malaise HEENT: Denies: Head Aches, Sinus Congestion, Sinus Drainage Cardiovascular: Denies: Chest Pain, Palpitations Respiratory: Reports: Cough, Shortness of Breath, Sputum production Gastrointestinal: Reports: Nausea. Denies: Abdominal Pain, Vomiting Genitourinary: Denies: Dysuria Musculoskeletal: Reports: - - Right rib area pain. Denies: Joint Pain, Joint Tenderness Skin: Denies: Rash, Wounds Neurological: Denies: Numbness, Tingling, Focal weakness Psychiatric: Denies: Anxiety, Depression, Homicidal Ideations, Suicidal Ideations Hematologic/ Lymphatic: Denies: Easy Bruising, Easy Bleeding VTE Information - Inpt Only VTE Present on Admission: No VTE Mechan Device Prophylaxis: None VTE Pharm Prophylaxis ordered?: Yes Patient Problems: Active and Suspected Problems (Last Reviewed 02/01/19 @ 19:[address] Edmundo Montague, DO) Community acquired pneumonia (Acute) Sepsis (Acute) - Physical Exam Vitals/I&O's: Vital Signs Temp Pulse Resp BP Pulse Ox 98.4 F 86 166 H 104/63 100 04/03/20 17:55 04/03/20 17:55 04/03/20 17:55 04/03/20 17:55 04/03/20 17:55 Oxygen Delivery Method Room Air Weight: 122 lb 12.76 oz Body Mass Index (BMI) 19.8 Intake and Output for Last 24 Hours 04/01/20 04/02/20 04/03/20 23:59 23:59 23:59 Intake Total 1041.67 / 1041.67 Balance 1041.67 / 1041.67 General: Oriented x3, Cooperative, - - Ill-appearing, drowsy, diaphoretic HEENT: Atraumatic, PERRLA, EOMI, Normocephalic Oral: Dry Mucosa Neck: Supple, No JVD, Negative Carotid Bruits Lungs: Clear to auscultation, Diminished Cardiovascular: Regular rate, No murmurs Abdomen: Bowel Sounds Present, Soft, Non Tender, Non-Distended Extremities: No clubbing, No cyanosis, No edema, Capillary Refill Less than 3 Seconds Skin: No rashes, No breakdown Musculoskeletal: No Tenderness to Palpation of Joints or Extremities Neurological: Cranial nerves II-XII grossly intact, Neuro grossly intact Psych/Mental Status: Flat Affect Microbiology Past 72 Hours 04/03/20 15:36 Mucosa - Nasopharyngeal - Final Laboratory Results 04/03/20 15:28: WBC 31.3 H*, RBC 4.29 L, Hgb 13.1, Hct 38.1 L, MCV 88.8, MCH 30.5, MCHC 34.4, RDW Std Deviation 37.9, RDW Coeff of Vaibhav 11.8, Plt Count 385, MPV 8.7, Immature Gran % (Auto) 3.500 H, Neut % (Auto) 85.0 H, Lymph % (Auto) 4.5 L, Mower % (Auto) 6.6, Eos % (Auto) 0.1, Baso % (Auto) 0.3, Absolute Neuts (auto) 26.7 H, Absolute Lymphs (auto) 1.40, Nucleated RBC % 0, Differential Comment SCANNED, Diff Path Review September04/03/20 15:28: PT 14.9, INR 1.2, APTT 34.7 04/03/20 15:28: Sodium 132 L, Potassium 3.7, Chloride 99, Carbon Dioxide 29.0, Anion Gap 4 L, BUN 11, Creatinine 0.86, Estim Creat Clear Calc 89.95, Est GFR (MDRD) Af Amer 126, Est GFR (MDRD) Non-Af 104, BUN/Creatinine Ratio 12.8, Glucose 130 H, Calcium 9.0, Total Bilirubin 1.10 H, AST 19, ALT 15 L, Alkaline Phosphatase 100, Troponin I < 0.015, Total Protein 7.8, Albumin 3.1 L, Globulin 4.7 H, Albumin/Globulin Ratio 0.7 L 04/03/20 15:28: Lactic Acid 1.2 Current Medications Vancomycin HCl 1,500 mg/ (Sodium Chloride) 530 mls @ 250 mls/hr IV X1 ONE Stop: 04/03/20 19:06 Last Admin: 04/03/20 17:26 Dose: 250 mls/hr Documented by: Sodium Chloride () 1,000 mls @ 999 mls/hr IV .Q1H1M ONE Stop: 04/03/20 19:00 Last Admin: 04/03/20 18:03 Dose: 999 mls/hr Documented by: Iopamidol (Contrast Allergy Safety Check) 0 ml IV X1 RUBY Assessment/Plan All Active Problems (Last Reviewed 02/01/19 @ 19:[address] Edmundo Montague, DO) Community acquired pneumonia (Acute) Sepsis (Acute) Leukocytosis (Acute) Hyponatremia (Acute) Cellulitis of left lower extremity without foot (Resolved) MRSA bacteremia (Resolved) 1. Severe sepsis secondary to right lower lobe community-acquired pneumonia-WBC 31, temp 100.6, heart rate 123. Lactic acid normal. IV fluids per sepsis protocol. IV vancomycin and IV Zosyn. As needed albuterol aerosols. Send sputum for culture. Blood cultures pending. Check urine for strep and Legionella. MRSA PCR. Covid negative. 2. Acute opioid withdrawal, polysubstance abuse with IV drug use-patient admits to fentanyl, methamphetamine use. Obtain tox screen. Medical stabilization per protocol. 3. Hypovolemic hyponatremia-IV fluids, trend BMP. 4. Tobacco dependence-encourage cessation. Nicotine replacement patch. DVT prophylaxis- Lovenox sc This patient was seen by VINCENT Warner under the supervision of Dr. Garcia. <Rachel Garcia - Last Filed: 04/03/20 19:33> Problem List (1) IVDU (intravenous drug user) Status: Chronic (2) Hepatitis C Status: Chronic (3) Leukocytosis Status: Acute (4) Hyponatremia Status: Acute History of Present Illness I agree with the above and the following a representation of my own independent history and physical exam Mr Hartman is a 39 year old WM who presented to the ED on 04/03/2020 with shortness of breath, cough, fever, R pleurtic pain and malaise that started in the last 24 hrs. He is an IVDU and states that his last fentanyl use was about 2 days ago. He admits that he feels like he is going through withdrawal as well. He was initially tachycardic but his HR improved, Tmax in the ED was 100.5 and his sats were stable on RA at 95-100%. He was found to have a white count of 31.2 and a L shift. Na was 132. His bili was slightly elevated at 1.1 but LFT were in WNL. He was started on vanc and zosyn in the ED. He was dx with PNA and treated here in 07/2018 (s. pneumo and MRSA). Past Medical History Medical History: Medical History (Last Reviewed 04/03/20 @ 19:[address] Rachel Garcia, DO) Hypertension I10 Allergies bee venom protein (honey bee) Allergy (Verified 04/03/20 15:12) Anaphylaxis seasonal Allergy (Uncoded 04/03/20 15:12) Other Drugs: - Review of Systems Constitutional: Reports: Anorexia, Chills, Fever, Malaise, Weakness, Fatigue Eyes: Denies: Blurred vision, Drainage, Eyelid Inflammation, Pain, Redness, Vision Change HEENT: Denies: Difficulty Swallowing, Ear Pain, Eye Pain, Head Aches, Nasal Congestion, Post Nasal Drip, Sinus Congestion, Sinus Drainage, Sore Throat, Visual Changes Cardiovascular: Reports: Chest Pain - with deep breath. Denies: Claudication, Chest Pressure, Chest Tightness, Edema, Heaviness, Light Headedness, Orthopnea, Palpitations, Paroxysmal Noc. Dyspnea, Syncope Respiratory: Reports: Cough, Shortness of Breath, Shortness of breath upon exertion, Sputum production. Denies: Hemoptysis, Pleuritic Pain, Shortness of breath at rest, Wheezing Gastrointestinal: Reports: Nausea. Denies: Abdominal Pain, Constipation, Diarrhea, Dyspepsia, Hematemesis, Hematochezia, Melena, Vomiting Genitourinary: Denies: Dysuria, Frequency, Hematuria, Hesitancy, Incontinence, Nocturia, Retention, Urgency Musculoskeletal: Reports: -. Denies: Back Pain, Joint Pain, Joint stiffness, Joint swelling, Joint Tenderness Skin: Denies: Dryness, Jaundice, Lesions, Pruritis, Rash, Skin Changes, Wounds Neurological: Denies: Balance problems, Blurred vision, Double vision, Change in Speech, Slurred speech, Confusion, Difficulty swallowing, Headaches, Incoordination, Numbness, Tremor, Seizures Psychiatric: Denies: Anxiety, Depression Endocrine: Denies: Change in Body Habitus, Heat/ Cold Intolerance, Polydipsia, Polyuria Hematologic/ Lymphatic: Denies: Adenopathy, Anemia, Petechiae, Purpura - Physical Exam Vitals/I&O's: Vital Signs Temp Pulse Resp BP Pulse Ox 98.2 F 86 16 104/63 100 04/03/20 18:09 04/03/20 18:09 04/03/20 18:09 04/03/20 18:09 04/03/20 18:09 Oxygen Delivery Method Room Air Weight: 55.7 kg Body Mass Index (BMI) 19.8 Intake and Output for Last 24 Hours 04/01/20 04/02/20 04/03/20 23:59 23:59 23:59 Intake Total 1041.67 / 1041.67 Balance 1041. / 1041.67 General: Alert, Oriented x3, Cooperative, Well developed, Well nourished, - - Middle aged WM who appears older than stated age and is Ill-appearing but not toxic, drowsy, and mildly diaphoretic HEENT: Atraumatic, PERRLA, EOMI, Normocephalic, EAC Clear Oral: No Gingival or Mucosal Lesions/ Ulcerations, Dry Mucosa Neck: Supple, No JVD, No Nodes, Trachea Midline, Thyroid Normal Size and Texture Lungs: Clear to auscultation, No rhonchi, No wheeze, Diminished - R Base, - - pain on R with deep breath Cardiovascular: Regular rate, Regular Rhythm, Normal S1, Normal S2, No murmurs, No Ectopic Activity, No rub noted, No Gallop Abdomen: Bowel Sounds Present, Soft, Non Tender, Non-Distended, No hernias noted Extremities: No clubbing, No cyanosis, No edema, Capillary Refill Less than 3 Seconds, Peripheral Pulses Normal Skin: No rashes, No breakdown, - - multiple track soria Musculoskeletal: No Tenderness to Palpation of Joints or Extremities Lymphatic: No Cervical, Supraclavicular, or Inguinal Adenopathy Neurological: Cranial nerves II-XII grossly intact, Deep Tendon Reflexes 2+/4 and Symmetrical, Neuro grossly intact, Motor Exam 5/5 strength throughout, Muscle tone normal, Sensory exam intact to light touch and pain, Coordination normal Psych/Mental Status: Flat Affect Microbiology Past 72 Hours 04/03/20 15:36 Mucosa - Nasopharyngeal - Final Laboratory Results 04/03/20 15:28: WBC 31.3 H*, RBC 4.29 L, Hgb 13.1, Hct 38.1 L, MCV 88.8, MCH 30.5, MCHC 34.4, RDW Std Deviation 37.9, RDW Coeff of Vaibhav 11.8, Plt Count 385, MPV 8.7, Immature Gran % (Auto) 3.500 H, Neut % (Auto) 85.0 H, Lymph % (Auto) 4.5 L, Mower % (Auto) 6.6, Eos % (Auto) 0.1, Baso % (Auto) 0.3, Absolute Neuts (auto) 26.7 H, Absolute Lymphs (auto) 1.40, Nucleated RBC % 0, Differential Comment SCANNED, Diff Path Review September foll 04/03/20 15:28: PT 14.9, INR 1.2, APTT 34.7 04/03/20 15:28: Sodium 132 L, Potassium 3.7, Chloride 99, Carbon Dioxide 29.0, Anion Gap 4 L, BUN 11, Creatinine 0.86, Estim Creat Clear Calc 89.95, Est GFR (MDRD) Af Amer 126, Est GFR (MDRD) Non-Af 104, BUN/Creatinine Ratio 12.8, Glucose 130 H, Calcium 9.0, Total Bilirubin 1.10 H, AST 19, ALT 15 L, Alkaline Phosphatase 100, Troponin I < 0.015, Total Protein 7.8, Albumin 3.1 L, Globulin 4.7 H, Albumin/Globulin Ratio 0.7 L 04/03/20 15:28: Lactic Acid 1.2 Current Medications Acetaminophen (Acetaminophen 325 Mg Tablet) 650 mg PO Q6H PRN PRN PRN Reason: Pain Score 1-10/Temp > 100.7 F Albuterol/Ipratropium (Ipratropium/Albuterol Sulfate 3 Ml Ampul.Neb) 3 ml INHALATION Q4H.RT RUBY Buprenorphine HCl (Buprenorphine Hcl 2 Mg Tab.Subl) 0 mg SL Q8H RUBY; Taper Stop: 04/06/20 18:29 Dicyclomine HCl (Dicyclomine 10 Mg Capsule) 20 mg PO Q6H PRN PRN PRN Reason: Abdominal Discomfort Enoxaparin Sodium (Enoxaparin 40 Mg/0.4 Ml Syringe) 40 mg SC DAILY [facility] Guaifenesin (Guaifenesin 1,200 Mg Tablet) 1,200 mg PO BID [facility] Piperacillin Sod/Tazobactam (Sod 3.375 gm/ Sodium Chloride) 50 mls @ 12.5 mls/hr IV Q8 RUBY Stop: 04/10/20 22:01 Vancomycin IV Pharmacy to Dose (1 ea/ Sodium Chloride) 500 mls @ 250 mls/hr IV X1 PRN; Protocol PRN Reason: Rx to Dose Sodium Chloride () 1,000 mls @ 999 mls/hr IV .Q1H1M RUBY; Protocol Stop: 04/03/20 20:20 Last Admin: 04/03/20 18:15 Dose: 999 mls/hr Documented by: Vancomycin HCl 1,250 mg/ (Sodium Chloride) 275 mls @ 167 mls/hr IV Q12H RUBY Ibuprofen (Ibuprofen 400 Mg Tablet) 400 mg PO Q4H PRN PRN PRN Reason: Pain Score 1-10/Temp > 100.7 F Loperamide HCl (Loperamide 2 Mg Capsule) 2 mg PO Q4H PRN PRN PRN Reason: LOOSE STOOLS Nicotine (Nicotine 14 Mg Patch) 14 mg TRANSDERM. DAILY RUBY Ondansetron HCl (Ondansetron 4 Mg/2 Ml Vial) 4 mg IV Q8H PRN PRN PRN Reason: NAUSEA/VOMITING Sodium Chloride (0.9% Saline Lock 10 Ml Syringe) 10 - 40 ml IV UD PRN PRN Reason: SALINE FLUSH Assessment/Plan ASSESSMENT Severe Sepsis 2/2 RLL PNA and ? Bacteremia -not hypotensive and no lactate but tachycardic, febrile and leukocytosis with source Hyponatremia -suspect hypovolemic R sided Pleuritic pain Hepatitis C Acute Opiate Withdrawal Polysubstance Abuse (Meth/Fentanyl/THC) Tobacco Abuse PLAN -admit to PCU -pancx -Vanc and Zosyn -with IVDU if BC + would check Echo -urine antigens -Check COVID-19 -CTA Chest to R/O PE -Opiate withdrawal order set and if willing to quit 180 consult -nicotine patch -check HIV status -Check Hep C viral load to see if infection is chronic or cleared Inpatient E&M: 90863 Init Hosp L3
--- NOTE | 2020-04-03 19:07 | PCM.RX.CS ---
Consult Pharmacy has been consulted to manage selected antiobiotic: Vancomycin Type of Consult: New start Suspected Infection: Sepsis, Skin/Soft tissue, Pneumonia Labs: Sodium 132 mmol/L (136-145) L 04/03/20 15:28 Potassium 3.7 mmol/L (3.5-5.1) 04/03/20 15:28 Chloride 99 mmol/L (98-107) 04/03/20 15:28 Carbon Dioxide 29.0 mmol/L (21.0-32.0) 04/03/20 15:28 Anion Gap 4 (5-15) L 04/03/20 15:28 BUN 11 mg/dL (7-18) 04/03/20 15:28 Creatinine 0.86 mg/dL (0.70-1.30) 04/03/20 15:28 Est GFR (MDRD) Af Amer 126 mL/min (>60) 04/03/20 15:28 Est GFR (MDRD) Non-Af 104 mL/min (>60) 04/03/20 15:28 BUN/Creatinine Ratio 12.8 RATIO (10-20) 04/03/20 15:28 Glucose 130 mg/dL (74-106) H 04/03/20 15:28 Microbiology: Microbiology 04/03/20 15:36 Mucosa - Nasopharyngeal - Final Weight used for dosin.7 kg Estimated Creatinine Clearance: 90ml/min Goal Trough: 15-20 mcg/mL Pharmacy Plan for Drug Dosing: Received 1500mg iv x 1 in ED. Will begin 1250mg iv q12h. Trough level ordered for 11.8.20. Pharmacy Service will continue to monitor and adjust dosing as required. Follow-Up Labs: Trough Vancomycin - 11.8.20 @0530 before 0600 dose
[2020-04-03] MEDS: Ipratropium/Albuterol Sulfate 3 ML AMPUL.NEB INHALATION (20:21)
[2020-04-03] MEDS: Ibuprofen 400 MG Tablet PO (20:35)
--- NOTE | 2020-04-03 20:54 | CT_ITS ---
STUDY: CTA CHEST REASON FOR EXAM: Male, 39 years old. Elevated WBC, COUGH, SOB, FEVER, CHILLS, PLEURITIC CP, PNEUMONIA RADIATION DOSAGE (If Supplied By Facility): CTDIvol = ( 4.55 ) mGy, DLP = ( 166.95 ) mGycm TECHNIQUE: The examination was performed with the intravenous administration of IV contrast. Post-processing of the angiographic images was performed, with multiplanar reformation and 3D reconstruction. Individualized dose optimization techniques were used for this CT. COMPARISON: 08/19/2018. FINDINGS: Normal enhancement of the main pulmonary artery and right and left pulmonary arteries. Normal enhancement of the bilateral peripheral pulmonary arteries. There is no demonstrated pulmonary embolism. Normal thoracic aorta and visualized great vessels. There is no demonstrated aortic dissection. Normal heart and pericardium. Normal mediastinum. Normal hilar regions. Normal visualized trachea and bronchi. Mild hyperexpansion of the lungs consistent with COPD. Prominent consolidation throughout the basal segments of the right lower lobe with atelectasis/infiltrate. Bronchial wall thickening seen to the right lower lobe. Small right pleural effusion. Normal osseous structures. Normal visualized upper abdomen. CT/CTA Chest W/WO Contrast IMPRESSION: No evidence for PE. Atelectasis or infiltrate of the right lower lobe with bronchitis and small right pleural effusion. Electronically Signed: Gopal Strong MD at 21:37 EST , Service support ,
[2020-04-03] MEDS: Acetaminophen 325 MG Tablet 650 MG PO (22:21)
[2020-04-03] MEDS: guaiFENesin 1,200 MG Tablet 1200 MG PO (22:21)
[2020-04-03 23:13] LABS: M R Staph aureus DNA By PCR Negative (Negative); Probe Check PASS; Specimen Processing Control PASS
[2020-04-04] VITALS (16 sets, daily range): BP systolic 95–112; BP diastolic 57–78; PULSE 85–121; RESP 16–22; TEMP 36.4–37.3; O2SAT 91–99
[2020-04-04] MEDS: Ibuprofen 400 MG Tablet PO (01:44)
[2020-04-04] MEDS: Ketorolac 30 MG/ML Syringe IV ×3 (02:38→18:17)
[2020-04-04] MEDS: traZODone 50 MG Tablet PO (02:38)
[2020-04-04 02:52] LABS: Bacteria 0 SEEN /hpf (None Seen); Mucous, Urine 0 SEEN /hpf (<or=2+); Red Blood Cells-Urine 0 SEEN /hpf (0-5); White Blood Cells 0 SEEN /hpf (0-5)
[2020-04-04 02:56] LABS: Color, Urine Yellow (Yellow); Glucose, Dipstick Normal (Normal); Ketone-Dipstick 15 mg/dl (Negative); Leukocyte Esterase-Dipstick Negative /ul (Negative); Nitrite-Dipstick Negative (Negative); Occult Blood-Urine Negative /ul (Negative); Protein-Dipstick 30 mg/dl (Negative); Specific Gravity, Urine 1.015 (1.002-1.030); Urine Bilirubin Dipstick Negative (Negative); Urine Clarity Sl. Cloudy (Clear); Urine Urobilinogen Normal (Normal)
[2020-04-04 03:27] LABS: Squamous Epithelial Cells - UA 0-5 SEEN /hpf (0-5)
[2020-04-04 04:20] LABS: Amphetamine Urine VISTA POSITIVE (<1000 ng/mL); Barbiturate Urine VISTA NEGATIVE (< 200 ng/mL); Benzodiazepine Urine VISTA NEGATIVE (< 200 ng/mL); Cocaine Urine VISTA NEGATIVE (< 300 ng/mL); Ecstacy Urine VISTA NEGATIVE (< 500 ng/mL); Methadone Urine VISTA NEGATIVE (< 300 ng/mL); PCP Urine VISTA NEGATIVE (< 25 ng/mL); THC Urine VISTA NEGATIVE (< 50 ng/mL); Vista UDS pH Range 6
[2020-04-04 08:25] LABS: Hematocrit 36.5 % (40-54); Hemoglobin 12.7 g/dL (13.0-16.5); Mean Corp Hgb Conc 34.8 g/dL (32-36); Mean Corpuscular Hgb 30.8 pg (27.0-32.0); Mean Corpuscular Volume 88.4 fL (80-94); Mean Platelet Vol. 8.4 fl (6.2-12.0); POSITIVE COUNT YES; POSITIVE DIFFERENTIAL YES; POSITIVE MORPHOLOGY YES; Platelet Count 321 K/mm3 (150-450); RBC Distribution Width CV 11.9 % (11.6-14.6); RBC Distribution Width SD 38.3 fl (35.1-43.9); Red Blood Count 4.13 M/mm3 (4.6-6.2)
[2020-04-04 08:29] LABS: Differential Indicated MANUAL DIFF; White Blood Count 31.2 K/mm3 (4.4-11.0)
[2020-04-04] MEDS: Polyethylene Glycol 3350 17 GM PACKET PO (08:53)
[2020-04-04] MEDS: Buprenorphine HCl 2 MG TAB.SUBL SL ×2 (08:53→17:20)
[2020-04-04] MEDS: guaiFENesin 1,200 MG Tablet 1200 MG PO ×2 (08:53→23:03)
[2020-04-04] MEDS: Acetaminophen 325 MG Tablet 650 MG PO ×2 (08:53→22:47)
[2020-04-04] MEDS: Dicyclomine 10 MG Capsule 20 MG PO (08:53)
[2020-04-04 09:00] LABS: Anion Gap 6 (5-15); BUN 11 mg/dL (7-18); BUN/Creat Ratio 18.9 RATIO (10-20); Calcium,Total 8.2 mg/dL (8.5-10.1); Chloride 110 mmol/L (98-107); Creatinine, Serum 0.58 mg/dL (0.70-1.30); EST Glomerular Filtration Rate 163 mL/min (>60); Est Glom Filt Rate - Afr Amer 198 mL/min (>60); Estimated Creatinine Clearance 129.47 ml/min; Glucose 82 mg/dL (74-106); Potassium 3.5 mmol/L (3.5-5.1); Sodium Level 141 mmol/L (136-145)
[2020-04-04 09:20] LABS: Lymphocyte 3 % (19-41); Monocyte 4 % (0-10); Neutrophil-Band 6 % (0-5); Neutrophil-Segmented 87 % (47-70); Platelet Estimate ADEQUATE (ADEQ); Red Cell Morphology NORM C+C NORMAL (NORM C&C); Total Cells Counted 100 (MANUAL DIFF)
[2020-04-04 09:21] LABS: Absolute Lymphocyte Count 0.94 X10^3/uL (0.83-4.51)
[2020-04-04] MEDS: 0.9% Saline Lock 10 ML Syringe IV ×3 (10:22→22:47)
[2020-04-04] MEDS: Ipratropium/Albuterol Sulfate 3 ML AMPUL.NEB INHALATION ×4 (10:35→23:12)
--- NOTE | 2020-04-04 12:57 | PCM.PROGNOTE ---
<MarcosMague G[employer]ATION ATTENDANT - Last Filed: 04/04/20 13:04> Patient Problems: Active and Suspected Problems (Last Reviewed 04/03/20 @ 19:[address] Rachel Garcia DO) Community acquired pneumonia (Acute) Sepsis (Acute) Leukocytosis (Acute) Hyponatremia (Acute) Subjective: Patient seen and examined. Complains of abdominal cramping, right rib pain and restless legs. Fever improved. Denies nausea, vomiting. - Physical Exam Vitals/I&O's: Vital Signs Temp Pulse Resp BP Pulse Ox 98.0 F 99 20 H 95/59 L 97 04/04/20 10:25 04/04/20 10:35 04/04/20 10:35 04/04/20 10:25 04/04/20 10:25 Oxygen Flow Rate (L/min) 2 Oxygen Delivery Method Room Air Weight: 119 lb 3.2 oz Body Mass Index (BMI) 19.2 Intake and Output for Last 24 Hours 04/02/20 04/03/20 04/04/20 23:59 23:59 23:59 Intake Total 4571.67 / 4811.67 1340 / 1340 Output Total 750 / 750 Balance 4571.67 / 4061.67 590 / 590 General: Alert, Oriented x3, Cooperative HEENT: Atraumatic, PERRLA, EOMI, Normocephalic Oral: Dry Mucosa Neck: Supple, No JVD, Negative Carotid Bruits Lungs: Clear to auscultation, Diminished Cardiovascular: Regular rate, No murmurs Abdomen: Bowel Sounds Present, Soft, Non Tender, Non-Distended Extremities: No clubbing, No cyanosis, No edema, Capillary Refill Less than 3 Seconds Skin: No rashes, No breakdown Musculoskeletal: No Tenderness to Palpation of Joints or Extremities Neurological: Cranial nerves II-XII grossly intact, Neuro grossly intact Psych/Mental Status: Normal Affect, Appropriate Microbiology Past 72 Hours 04/04/20 02:40 Urine, Clean Catch Legionella Antigen - Final 04/04/20 02:40 Urine, Clean Catch Streptococcus pneumoniae Antigen (M - Final 04/03/20 15:36 Mucosa - Nasopharyngeal - Final Laboratory Results 04/03/20 15:28: WBC 31.3 H*, RBC 4.29 L, Hgb 13.1, Hct 38.1 L, MCV 88.8, MCH 30.5, MCHC 34.4, RDW Std Deviation 37.9, RDW Coeff of Vaibhav 11.8, Plt Count 385, MPV 8.7, Immature Gran % (Auto) 3.500 H, Neut % (Auto) 85.0 H, Lymph % (Auto) 4.5 L, Fannin % (Auto) 6.6, Eos % (Auto) 0.1, Baso % (Auto) 0.3, Absolute Neuts (auto) 26.7 H, Absolute Lymphs (auto) 1.40, Nucleated RBC % 0, Differential Comment SCANNED, Diff Path Review September04/03/20 15:28: PT 14.9, INR 1.2, APTT 34.7 04/03/20 15:28: Sodium 132 L, Potassium 3.7, Chloride 99, Carbon Dioxide 29.0, Anion Gap 4 L, BUN 11, Creatinine 0.86, Estim Creat Clear Calc 89.95, Est GFR (MDRD) Af Amer 126, Est GFR (MDRD) Non-Af 104, BUN/Creatinine Ratio 12.8, Glucose 130 H, Calcium 9.0, Total Bilirubin 1.10 H, AST 19, ALT 15 L, Alkaline Phosphatase 100, Troponin I < 0.015, Total Protein 7.8, Albumin 3.1 L, Globulin 4.7 H, Albumin/Globulin Ratio 0.7 L 04/03/20 15:28: Lactic Acid 1.2 04/03/20 21:05: MRSA (PCR) Negative 04/04/20 02:40: Urine Color Yellow, Urine Clarity Sl. Cloudy, Urine pH 5.0, Ur Specific [place] 1.015, Urine Protein 30 H, Urine Glucose (UA) Normal, Urine Ketones 15 H, Urine Occult Blood Negative, Urine Nitrite Negative, Urine Bilirubin Negative, Urine Urobilinogen Normal, Ur Leukocyte Esterase Negative, Urine RBC 0 SEEN, Urine WBC 0 SEEN, Ur Squamous Epith Cells 0-5 SEEN, Urine Bacteria 0 SEEN, Urine Mucus 0 SEEN 04/04/20 02:40: Urine Opiates Screen POSITIVE H, Urine Methadone Screen NEGATIVE, Ur Barbiturates Screen NEGATIVE, Ur Phencyclidine Scrn NEGATIVE, Ur Amphetamines Screen POSITIVE H, U Methamphetamin-MDMA NEGATIVE, U Benzodiazepines Scrn NEGATIVE, Urine Cocaine Screen NEGATIVE, U Cannabinoids Screen NEGATIVE, Ur Drug Screen Comment 04/04/20 07:56: WBC 31.2 H*, RBC 4.13 L, Hgb 12.7 L, Hct 36.5 L, MCV 88.4, MCH 30.8, MCHC 34.8, RDW Std Deviation 38.3, RDW Coeff of Vaibhav 11.9, Plt Count 321, MPV 8.4, Neut % (Auto) Not Reportable, Absolute Neuts (auto) 29.0 H, Absolute Lymphs (auto) 0.94, Total Counted 100, Neutrophils % (Manual) 87 H, Band Neutrophils % 6 H, Lymphocytes % (Manual) 3 L, Monocytes % (Manual) 4, Diff Path Review September, Platelet Estimate ADEQUATE, RBC Morphology NORM C+C 04/04/20 07:56: Sodium 141, Potassium 3.5, Chloride 110 H, Carbon Dioxide 25.0, Anion Gap 6, BUN 11, Creatinine 0.58 L, Estim Creat Clear Calc 129.47, Est GFR (MDRD) Af Amer 198, Est GFR (MDRD) Non-Af 163, BUN/Creatinine Ratio 18.9, Glucose 82, Calcium 8.2 L 04/04/20 07:56: HCV RNA Quant (PCR) Pending Current Medications Acetaminophen (Acetaminophen 325 Mg Tablet) 650 mg PO Q6H PRN PRN PRN Reason: Pain Score 1-10/Temp > 100.7 F Last Admin: 04/04/20 08:53 Dose: 650 mg Documented by: Al Hydroxide/Mg Hydroxide (Mag Hydrox/Al Hydrox/Simeth 30 Ml Udc) 30 ml PO Q6H PRN PRN PRN Reason: Gastric Burning Albuterol/Ipratropium (Ipratropium/Albuterol Sulfate 3 Ml Ampul.Neb) 3 ml INHALATION Q4H.RT RUBY Last Admin: 04/04/20 10:35 Dose: 3 ml Documented by: Bisacodyl (Bisacodyl 5 Mg Tablet) 10 mg PO DAILY PRN PRN PRN Reason: Constipation Buprenorphine HCl (Buprenorphine Hcl 2 Mg Tab.Subl) 4 mg SL Q8H [facility]; Taper Stop: 04/07/20 08:59 Last Admin: 04/04/20 08:53 Dose: 4 mg Documented by: Dicyclomine HCl (Dicyclomine 10 Mg Capsule) 20 mg PO Q6H PRN PRN PRN Reason: Abdominal Discomfort Last Admin: 04/04/20 08:53 Dose: 20 mg Documented by: Docusate Sodium (Docusate Sodium 100 Mg Capsule) 200 mg PO BID PRN PRN PRN Reason: Constipation Enoxaparin Sodium (Enoxaparin 40 Mg/0.4 Ml Syringe) 40 mg SC DAILY [facility] Last Admin: 04/04/20 08:54 Dose: Not Given Documented by: Guaifenesin (Guaifenesin 1,200 Mg Tablet) 1,200 mg PO BID [facility] Last Admin: 04/04/20 08:53 Dose: 1,200 mg Documented by: Piperacillin Sod/Tazobactam (Sod 3.375 gm/ Sodium Chloride) 50 mls @ 12.5 mls/hr IV Q8 [facility] Stop: 04/10/20 22:01 Last Infusion: 04/04/20 10:19 Dose: Infused Documented by: Sodium Chloride () 250 mls @ 15 mls/hr IV .[id number] PRN PRN Reason: Saline Flush Sodium Chloride () 250 mls @ 15 mls/hr IV .[id number] PRN PRN Reason: Additional IVPB Infusion Ketorolac Tromethamine (Ketorolac 30 Mg/Ml Syringe) 30 mg IV Q8H [facility] Stop: 04/05/20 10:16 Last Admin: 04/04/20 10:22 Dose: 30 mg Documented by: Loperamide HCl (Loperamide 2 Mg Capsule) 2 mg PO Q4H PRN PRN PRN Reason: LOOSE STOOLS Morphine Sulfate (Morphine 2 Mg/Ml Syringe) 2 - 4 mg IV Q3H PRN PRN PRN Reason: Pain Score 6-10 Nicotine (Nicotine 14 Mg Patch) 14 mg TRANSDERM. DAILY [facility] Last Admin: 04/04/20 08:53 Dose: 14 mg Documented by: Ondansetron HCl (Ondansetron 4 Mg/2 Ml Vial) 4 mg IV Q8H PRN PRN PRN Reason: NAUSEA/VOMITING Polyethylene Glycol (Polyethylene Glycol 3350 17 Gm Packet) 17 gm PO DAILY [facility] Last Admin: 04/04/20 08:53 Dose: 17 gm Documented by: Prochlorperazine Edisylate (Prochlorperazine 10 Mg/2 Ml Vial) 10 mg IV Q6H PRN PRN PRN Reason: Nausea/Vomiting Sodium Chloride (0.9% Saline Lock 10 Ml Syringe) 10 - 40 ml IV UD PRN PRN Reason: SALINE FLUSH Last Admin: 04/04/20 10:22 Dose: 10 ml Documented by: Sodium Chloride (0.9% Saline Lock 10 Ml Syringe) 10 - 40 ml IV UD PRN PRN Reason: SALINE FLUSH Trazodone HCl (Trazodone 50 Mg Tablet) 50 mg PO QHS [facility] Medical Necessity - Tobacco Use Smoking Status: Heavy Smoker (>10/day) Tobacco Use: Cigarettes Assessment/Plan All Active Problems (Last Reviewed 04/03/20 @ 19:[address] Rachel Garcia, DO) Community acquired pneumonia (Acute) Sepsis (Acute) Leukocytosis (Acute) Hyponatremia (Acute) Cellulitis of left lower extremity without foot (Resolved) MRSA bacteremia (Resolved) 1. Severe sepsis secondary to right lower lobe community-acquired pneumonia-WBC 31, temp 100.6, heart rate 123. Lactic acid normal. Chest CTA negative for PE, demonstrates infiltrate of the right lower lobe with bronchitis and small right pleural effusion. IV fluids per sepsis protocol. IV vancomycin and IV Zosyn. As needed albuterol aerosols. Send sputum for culture. Blood cultures pending. Urine for strep and Legionella negative. MRSA PCR negative. Covid negative. 2. Acute opioid withdrawal, polysubstance abuse with IV drug use-patient admits to fentanyl, methamphetamine use. Tox screen positive for opiates and amphetamines. Medical stabilization per protocol. Buprenorphine taper. As needed regimen for somatic complaints. [facility] consult if agreeable. 3. Hypovolemic hyponatremia-IV fluids, trend BMP. 4. Tobacco dependence-encourage cessation. Nicotine replacement patch. DVT prophylaxis- Lovenox sc This patient was seen by VINCENT Warner under the supervision of Dr. Villanueva. <Seferino Villanueva - Last Filed: 04/04/20 13:34> - Physical Exam Vitals/I&O's: Vital Signs Temp Pulse Resp BP Pulse Ox 98.0 F 99 20 H 95/59 L 97 04/04/20 10:25 04/04/20 10:35 04/04/20 10:35 04/04/20 10:25 04/04/20 10:25 Oxygen Flow Rate (L/min) 2 Oxygen Delivery Method Room Air Weight: 54.068 kg Body Mass Index (BMI) 19.2 Intake and Output for Last 24 Hours 04/02/20 04/03/20 04/04/20 23:59 23:59 23:59 Intake Total 4571.67 / 4811.67 1340 / 1340 Output Total 750 / 750 Balance 4571.67 / 4061.67 590 / 590 Microbiology Past 72 Hours 04/04/20 02:40 Urine, Clean Catch Legionella Antigen - Final 04/04/20 02:40 Urine, Clean Catch Streptococcus pneumoniae Antigen (M - Final 04/03/20 15:36 Mucosa - Nasopharyngeal - Final Laboratory Results 04/03/20 15:28: WBC 31.3 H*, RBC 4.29 L, Hgb 13.1, Hct 38.1 L, MCV 88.8, MCH 30.5, MCHC 34.4, RDW Std Deviation 37.9, RDW Coeff of Vaibhav 11.8, Plt Count 385, MPV 8.7, Immature Gran % (Auto) 3.500 H, Neut % (Auto) 85.0 H, Lymph % (Auto) 4.5 L, Fannin % (Auto) 6.6, Eos % (Auto) 0.1, Baso % (Auto) 0.3, Absolute Neuts (auto) 26.7 H, Absolute Lymphs (auto) 1.40, Nucleated RBC % 0, Differential Comment SCANNED, Diff Path Review September04/03/20 15:28: PT 14.9, INR 1.2, APTT 34.7 04/03/20 15:28: Sodium 132 L, Potassium 3.7, Chloride 99, Carbon Dioxide 29.0, Anion Gap 4 L, BUN 11, Creatinine 0.86, Estim Creat Clear Calc 89.95, Est GFR (MDRD) Af Amer 126, Est GFR (MDRD) Non-Af 104, BUN/Creatinine Ratio 12.8, Glucose 130 H, Calcium 9.0, Total Bilirubin 1.10 H, AST 19, ALT 15 L, Alkaline Phosphatase 100, Troponin I < 0.015, Total Protein 7.8, Albumin 3.1 L, Globulin 4.7 H, Albumin/Globulin Ratio 0.7 L 04/03/20 15:28: Lactic Acid 1.2 04/03/20 21:05: MRSA (PCR) Negative 04/04/20 02:40: Urine Color Yellow, Urine Clarity Sl. Cloudy, Urine pH 5.0, Ur Specific [place] 1.015, Urine Protein 30 H, Urine Glucose (UA) Normal, Urine Ketones 15 H, Urine Occult Blood Negative, Urine Nitrite Negative, Urine Bilirubin Negative, Urine Urobilinogen Normal, Ur Leukocyte Esterase Negative, Urine RBC 0 SEEN, Urine WBC 0 SEEN, Ur Squamous Epith Cells 0-5 SEEN, Urine Bacteria 0 SEEN, Urine Mucus 0 SEEN 04/04/20 02:40: Urine Opiates Screen POSITIVE H, Urine Methadone Screen NEGATIVE, Ur Barbiturates Screen NEGATIVE, Ur Phencyclidine Scrn NEGATIVE, Ur Amphetamines Screen POSITIVE H, U Methamphetamin-MDMA NEGATIVE, U Benzodiazepines Scrn NEGATIVE, Urine Cocaine Screen NEGATIVE, U Cannabinoids Screen NEGATIVE, Ur Drug Screen Comment 04/04/20 07:56: WBC 31.2 H*, RBC 4.13 L, Hgb 12.7 L, Hct 36.5 L, MCV 88.4, MCH 30.8, MCHC 34.8, RDW Std Deviation 38.3, RDW Coeff of Vaibhav 11.9, Plt Count 321, MPV 8.4, Neut % (Auto) Not Reportable, Absolute Neuts (auto) 29.0 H, Absolute Lymphs (auto) 0.94, Total Counted 100, Neutrophils % (Manual) 87 H, Band Neutrophils % 6 H, Lymphocytes % (Manual) 3 L, Monocytes % (Manual) 4, Diff Path Review September, Platelet Estimate ADEQUATE, RBC Morphology NORM C+C 04/04/20 07:56: Sodium 141, Potassium 3.5, Chloride 110 H, Carbon Dioxide 25.0, Anion Gap 6, BUN 11, Creatinine 0.58 L, Estim Creat Clear Calc 129.47, Est GFR (MDRD) Af Amer 198, Est GFR (MDRD) Non-Af 163, BUN/Creatinine Ratio 18.9, Glucose 82, Calcium 8.2 L 04/04/20 07:56: HCV RNA Quant (PCR) Pending Current Medications Acetaminophen (Acetaminophen 325 Mg Tablet) 650 mg PO Q6H PRN PRN PRN Reason: Pain Score 1-10/Temp > 100.7 F Last Admin: 04/04/20 08:53 Dose: 650 mg Documented by: Al Hydroxide/Mg Hydroxide (Mag Hydrox/Al Hydrox/Simeth 30 Ml Udc) 30 ml PO Q6H PRN PRN PRN Reason: Gastric Burning Albuterol/Ipratropium (Ipratropium/Albuterol Sulfate 3 Ml Ampul.Neb) 3 ml INHALATION Q4H.RT [facility] Last Admin: 04/04/20 10:35 Dose: 3 ml Documented by: Bisacodyl (Bisacodyl 5 Mg Tablet) 10 mg PO DAILY PRN PRN PRN Reason: Constipation Buprenorphine HCl (Buprenorphine Hcl 2 Mg Tab.Subl) 4 mg SL Q8H [facility]; Taper Stop: 04/07/20 08:59 Last Admin: 04/04/20 08:53 Dose: 4 mg Documented by: Clonidine (Clonidine Hcl 0.1 Mg Tablet) 0.1 mg PO Q8H PRN PRN PRN Reason: RESTLESSNESS Dicyclomine HCl (Dicyclomine 10 Mg Capsule) 20 mg PO Q6H PRN PRN PRN Reason: Abdominal Discomfort Last Admin: 04/04/20 08:53 Dose: 20 mg Documented by: Docusate Sodium (Docusate Sodium 100 Mg Capsule) 200 mg PO BID PRN PRN PRN Reason: Constipation Enoxaparin Sodium (Enoxaparin 40 Mg/0.4 Ml Syringe) 40 mg SC DAILY [facility] Last Admin: 04/04/20 08:54 Dose: Not Given Documented by: Gabapentin (Gabapentin 300 Mg Capsule) 300 mg PO Q8H PRN PRN PRN Reason: moderate to severe anxiety Guaifenesin (Guaifenesin 1,200 Mg Tablet) 1,200 mg PO BID [facility] Last Admin: 04/04/20 08:53 Dose: 1,200 mg Documented by: Hydroxyzine Pamoate (Hydroxyzine Karla 25 Mg Capsule) 50 mg PO Q6H PRN PRN PRN Reason: mild anxiety Piperacillin Sod/Tazobactam (Sod 3.375 gm/ Sodium Chloride) 50 mls @ 12.5 mls/hr IV Q8 [facility] Stop: 04/10/20 22:01 Last Infusion: 04/04/20 10:19 Dose: Infused Documented by: Sodium Chloride () 250 mls @ 15 mls/hr IV .[id number] PRN PRN Reason: Saline Flush Sodium Chloride () 250 mls @ 15 mls/hr IV .[id number] PRN PRN Reason: Additional IVPB Infusion Ketorolac Tromethamine (Ketorolac 30 Mg/Ml Syringe) 30 mg IV Q8H [facility] Stop: 04/05/20 10:16 Last Admin: 04/04/20 10:22 Dose: 30 mg Documented by: Loperamide HCl (Loperamide 2 Mg Capsule) 2 mg PO Q4H PRN PRN PRN Reason: LOOSE STOOLS Methocarbamol (Methocarbamol 750 Mg Tablet) 1,500 mg PO Q6H PRN PRN PRN Reason: MUSCLE SPASM Morphine Sulfate (Morphine 2 Mg/Ml Syringe) 2 - 4 mg IV Q3H PRN PRN PRN Reason: Pain Score 6-10 Nicotine (Nicotine 14 Mg Patch) 14 mg TRANSDERM. DAILY [facility] Last Admin: 04/04/20 08:53 Dose: 14 mg Documented by: Ondansetron HCl (Ondansetron 4 Mg/2 Ml Vial) 4 mg IV Q8H PRN PRN PRN Reason: NAUSEA/VOMITING Polyethylene Glycol (Polyethylene Glycol 3350 17 Gm Packet) 17 gm PO DAILY [facility] Last Admin: 04/04/20 08:53 Dose: 17 gm Documented by: Prochlorperazine Edisylate (Prochlorperazine 10 Mg/2 Ml Vial) 10 mg IV Q6H PRN PRN PRN Reason: Nausea/Vomiting Sodium Chloride (0.9% Saline Lock 10 Ml Syringe) 10 - 40 ml IV UD PRN PRN Reason: SALINE FLUSH Last Admin: 04/04/20 10:22 Dose: 10 ml Documented by: Sodium Chloride (0.9% Saline Lock 10 Ml Syringe) 10 - 40 ml IV UD PRN PRN Reason: SALINE FLUSH Trazodone HCl (Trazodone 50 Mg Tablet) 50 mg PO QHS [facility] Assessment/Plan This patient was seen in conjunction with VINCENT Warner . I have independently interviewed and examined the patient and reviewed pertinent historical, laboratory, and other data. Please refer to VINCENT Warner note for details of this patient's presentation, findings, and recommendations. I have reviewed VINCENT Warner note and concur with documented findings. In brief, patient is a 1-year-old gentleman with history of polysubstance abuse admitted with severe sepsis secondary to right lower lobe pneumonia. Admitted to monitored bed for subsequent management. Patient was also found to be in acute opioid withdrawal nurse stating initiation of medical stabilization with Subutex Physical Examination: HEENT: Atraumatic; EYES; Anicteric, Normal Conjunctiva NECK; supple, normal thyroid, RESPIRATORY: Diminished to auscultation CARDIOVASCULAR: Regular S1 S2, GI: soft, normoactive bowel sounds, : No Renal angle tenderness; EXTREMITIES: No edema, no clubbing, MUSCULOSKELETAL: no muscle waisting NEURO: Awake; no lateralizing signs. SKIN: No Rash PSYCH; Flat affect Assessment: 1. Severe sepsis secondary to right lower lobe pneumonia 2. Acute opioid withdrawal 3. Hypovolemic hyponatremia 4. Tobacco dependence 5. DVT prophylaxis Recommendations: 1. I have discussed the results of my overview and impressions with the patient 2. Options for management were reviewed Inpatient E&M: [id number] [facility] Hosp L3
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
--- NOTE | 2020-04-04 16:35 | CASEMGMT ---
SOCIAL WORK Informant: RN Berkley RODRIGUEZ Reason for Consult: Referral to [facility] Met with patient in room. Introduced role and reason for referral. Patient states is wanting connected with services through [facility]. Patient reports to have last used fentanyl and meth 2 days ago. Discussed case with SAURABH Bowser. Call to [facility] Treatment Navigator and updated on patient. [facility] reports will be in tomorrow to complete assessment. Ronal Hernandez, FIRE PREVENTION RESEARCH ENGINEER, STAFF FIELD ENGINEER
[2020-04-04] MEDS: cloNIDine HCl 0.1 MG Tablet PO (22:47)
[2020-04-04] MEDS: Ondansetron 4 MG/2 ML Vial IV (22:47)
[2020-04-04] MEDS: Methocarbamol 750 MG Tablet 1500 MG PO (23:03)
[2020-04-05] VITALS (13 sets, daily range): BP systolic 96–118; BP diastolic 58–66; PULSE 77–137; RESP 16–24; TEMP 36.5–36.9; O2SAT 94–97
[2020-04-05] MEDS: Buprenorphine HCl 2 MG TAB.SUBL SL ×3 (01:10→16:53)
[2020-04-05] MEDS: Ketorolac 30 MG/ML Syringe IV ×2 (02:50→08:59)
[2020-04-05] MEDS: 0.9% Saline Lock 10 ML Syringe IV ×2 (02:50→14:35)
[2020-04-05] MEDS: Dicyclomine 10 MG Capsule 20 MG PO ×2 (05:21→16:02)
[2020-04-05] MEDS: Acetaminophen 325 MG Tablet 650 MG PO ×3 (05:21→20:50)
[2020-04-05 05:39] LABS: Hematocrit 34.1 % (40-54); Hemoglobin 11.6 g/dL (13.0-16.5); Mean Corpuscular Hgb 30.9 pg (27.0-32.0); Mean Corpuscular Volume 90.7 fL (80-94); Mean Platelet Vol. 8.6 fl (6.2-12.0); Platelet Count 324 K/mm3 (150-450); RBC Distribution Width CV 12.1 % (11.6-14.6); RBC Distribution Width SD 39.8 fl (35.1-43.9); Red Blood Count 3.76 M/mm3 (4.6-6.2); White Blood Count 29.4 K/mm3 (4.4-11.0)
[2020-04-05 06:09] LABS: Vancomycin, Trough Level < 0.8 ug/mL (5.0-15.0)
[2020-04-05] MEDS: Ipratropium/Albuterol Sulfate 3 ML AMPUL.NEB INHALATION ×4 (06:57→18:49)
[2020-04-05] MEDS: Methocarbamol 750 MG Tablet 1500 MG PO (09:00)
[2020-04-05] MEDS: guaiFENesin 1,200 MG Tablet 1200 MG PO ×2 (09:00→20:40)
[2020-04-05] MEDS: Polyethylene Glycol 3350 17 GM PACKET PO (09:00)
[2020-04-05] MEDS: hydrOXYzine PAM 25 MG Capsule 50 MG PO ×2 (09:06→20:53)
--- NOTE | 2020-04-05 10:43 | PN_ITS ---
<MarcosMague ECHO TECHNOLOGIST - Last Filed: 04/05/20 10:47> Patient Problems: Active and Suspected Problems (Last Reviewed 04/03/20 @ 19:[address] Rachel pierce, DO) Community acquired pneumonia (Acute) Sepsis (Acute) Leukocytosis (Acute) Hyponatremia (Acute) Subjective: Patient seen and examined. Continues to report right-sided rib/chest pain associated with cough. Patient states this is improved from prior. Denies further fever. Withdrawal symptoms including restlessness stable. - Physical Exam Vitals/I&O's: Vital Signs Temp Pulse Resp BP Pulse Ox 97.8 F 108 H 18 104/63 96 04/05/20 08:50 04/05/20 08:50 04/05/20 08:50 04/05/20 08:50 04/05/20 08:50 Oxygen Flow Rate (L/min) 2 Oxygen Delivery Method Room Air Weight: 119 lb 3.2 oz Body Mass Index (BMI) 19.2 Intake and Output for Last 24 Hours 04/03/20 04/04/20 04/05/20 23:59 23:59 23:59 Intake Total 4571.67 / 4811.67 1390 / 1630 580 / 580 Output Total 750 / 750 Balance 4571.67 / 4061.67 640 / 880 580 / 580 General: Alert, Oriented x3, Cooperative HEENT: Atraumatic, PERRLA, EOMI, Normocephalic Neck: Supple, No JVD, Negative Carotid Bruits Lungs: Clear to auscultation, Diminished Cardiovascular: Regular rate, No murmurs Abdomen: Bowel Sounds Present, Soft, Non Tender Extremities: No clubbing, No cyanosis, No edema, Capillary Refill Less than 3 Seconds Skin: No rashes, No breakdown Musculoskeletal: No Tenderness to Palpation of Joints or Extremities Neurological: Cranial nerves II-XII grossly intact, Neuro grossly intact Psych/Mental Status: Flat Affect Microbiology Past 72 Hours 04/04/20 17:00 Urine, Clean Catch Urine Culture - Preliminary Culture exhibits no growth. 04/03/20 15:28 Blood Culture (Wb) - Left Wrist Blood Culture - Preliminary No growth in 48 hours. 04/03/20 15:28 Blood Culture (Wb) - Anticubital Right Blood Culture - Preliminary No growth in 48 hours. 04/04/20 02:40 Urine, Clean Catch Legionella Antigen - Final 04/04/20 02:40 Urine, Clean Catch Streptococcus pneumoniae Antigen (M - Final 04/03/20 15:36 Mucosa - Nasopharyngeal - Final Laboratory Results 04/05/20 04:48: Vancomycin Trough < 0.8 L 04/05/20 04:48: WBC 29.4 H, RBC 3.76 L, Hgb 11.6 L, Hct 34.1 L, MCV 90.7, MCH 30.9, MCHC 34.0, RDW Std Deviation 39.8, RDW Coeff of Vaibhav 12.1, Plt Count 324, MPV 8.6 Current Medications Acetaminophen (Acetaminophen 325 Mg Tablet) 650 mg PO Q6H PRN PRN PRN Reason: Pain Score 1-10/Temp > 100.7 F Last Admin: 04/05/20 05:21 Dose: 650 mg Documented by: Al Hydroxide/Mg Hydroxide (Mag Hydrox/Al Hydrox/Simeth 30 Ml Udc) 30 ml PO Q6H PRN PRN PRN Reason: Gastric Burning Albuterol/Ipratropium (Ipratropium/Albuterol Sulfate 3 Ml Ampul.Neb) 3 ml INHALATION Q4H.RT RUBY Last Admin: 04/05/20 06:57 Dose: 3 ml Documented by: Bisacodyl (Bisacodyl 5 Mg Tablet) 10 mg PO DAILY PRN PRN PRN Reason: Constipation Buprenorphine HCl (Buprenorphine Hcl 2 Mg Tab.Subl) 2 mg SL Q8H RUBY; Taper Stop: 04/07/20 08:59 Last Admin: 04/05/20 08:54 Dose: 2 mg Documented by: Clonidine (Clonidine Hcl 0.1 Mg Tablet) 0.1 mg PO Q8H PRN PRN PRN Reason: RESTLESSNESS Last Admin: 04/04/20 22:47 Dose: 0.1 mg Documented by: Dicyclomine HCl (Dicyclomine 10 Mg Capsule) 20 mg PO Q6H PRN PRN PRN Reason: Abdominal Discomfort Last Admin: 04/05/20 05:21 Dose: 20 mg Documented by: Docusate Sodium (Docusate Sodium 100 Mg Capsule) 200 mg PO BID PRN PRN PRN Reason: Constipation Enoxaparin Sodium (Enoxaparin 40 Mg/0.4 Ml Syringe) 40 mg SC DAILY [facility] Last Admin: 04/05/20 09:14 Dose: Not Given Documented by: Gabapentin (Gabapentin 300 Mg Capsule) 300 mg PO Q8H PRN PRN PRN Reason: moderate to severe anxiety Guaifenesin (Guaifenesin 1,200 Mg Tablet) 1,200 mg PO BID [facility] Last Admin: 04/05/20 09:00 Dose: 1,200 mg Documented by: Hydroxyzine Pamoate (Hydroxyzine Karla 25 Mg Capsule) 50 mg PO Q6H PRN PRN PRN Reason: mild anxiety Last Admin: 04/05/20 09:06 Dose: 50 mg Documented by: Piperacillin Sod/Tazobactam (Sod 3.375 gm/ Sodium Chloride) 50 mls @ 12.5 mls/hr IV Q8 [facility] Stop: 04/10/20 22:01 Last Infusion: 04/05/20 09:06 Dose: Infused Documented by: Sodium Chloride () 250 mls @ 15 mls/hr IV .[id number] PRN PRN Reason: Saline Flush Sodium Chloride () 250 mls @ 15 mls/hr IV .[id number] PRN PRN Reason: Additional IVPB Infusion Loperamide HCl (Loperamide 2 Mg Capsule) 2 mg PO Q4H PRN PRN PRN Reason: LOOSE STOOLS Methocarbamol (Methocarbamol 750 Mg Tablet) 1,500 mg PO Q6H PRN PRN PRN Reason: MUSCLE SPASM Last Admin: 04/05/20 09:00 Dose: 1,500 mg Documented by: Morphine Sulfate (Morphine 2 Mg/Ml Syringe) 2 - 4 mg IV Q3H PRN PRN PRN Reason: Pain Score 6-10 Nicotine (Nicotine 14 Mg Patch) 14 mg TRANSDERM. DAILY [facility] Last Admin: 04/05/20 09:00 Dose: 14 mg Documented by: Ondansetron HCl (Ondansetron 4 Mg/2 Ml Vial) 4 mg IV Q8H PRN PRN PRN Reason: NAUSEA/VOMITING Last Admin: 04/04/20 22:47 Dose: 4 mg Documented by: Polyethylene Glycol (Polyethylene Glycol 3350 17 Gm Packet) 17 gm PO DAILY [facility] Last Admin: 04/05/20 09:00 Dose: 17 gm Documented by: Prochlorperazine Edisylate (Prochlorperazine 10 Mg/2 Ml Vial) 10 mg IV Q6H PRN PRN PRN Reason: Nausea/Vomiting Sodium Chloride (0.9% Saline Lock 10 Ml Syringe) 10 - 40 ml IV UD PRN PRN Reason: SALINE FLUSH Last Admin: 04/05/20 02:50 Dose: 10 ml Documented by: Sodium Chloride (0.9% Saline Lock 10 Ml Syringe) 10 - 40 ml IV UD PRN PRN Reason: SALINE FLUSH Trazodone HCl (Trazodone 50 Mg Tablet) 50 mg PO QHS [facility] Last Admin: 04/04/20 23:05 Dose: Not Given Documented by: Medical Necessity - Tobacco Use Smoking Status: Heavy Smoker (>10/day) Tobacco Use: Cigarettes Assessment/Plan All Active Problems (Last Reviewed 04/03/20 @ 19:[address] Rachel Garcia DO) Community acquired pneumonia (Acute) Sepsis (Acute) Leukocytosis (Acute) Hyponatremia (Acute) Cellulitis of left lower extremity without foot (Resolved) MRSA bacteremia (Resolved) 1. Severe sepsis secondary to right lower lobe community-acquired pneumonia-WBC 31, temp 100.6, heart rate 123. Lactic acid normal. Chest CTA negative for PE, demonstrates infiltrate of the right lower lobe with bronchitis and small right pleural effusion. IV fluids per sepsis protocol. IV vancomycin and IV Zosyn. Plan for transition to oral regimen tomorrow. As needed albuterol aerosols. Send sputum for culture. Blood cultures show no growth thus far. Urine for strep and Legionella negative. MRSA PCR negative. Covid negative. As needed Tylenol/ibuprofen for pleuritic pain. 2. Acute opioid withdrawal, polysubstance abuse with IV drug use-patient admits to fentanyl, methamphetamine use. Tox screen positive for opiates and amphetamines. Medical stabilization per protocol. Buprenorphine taper. As needed regimen for somatic complaints. [employer] consult. 3. Hypovolemic hyponatremia-resolved with IV fluids. 4. Tobacco dependence-encourage cessation. Nicotine replacement patch. DVT prophylaxis- Lovenox sc This patient was seen by VINCENT Warner under the supervision of Dr. Villanueva. <Sefernio Villanueva - Last Filed: 04/05/20 11:58> - Physical Exam Vitals/I&O's: Vital Signs Temp Pulse Resp BP Pulse Ox 97.8 F 106 H 24 H 104/63 96 04/05/20 08:50 04/05/20 11:31 04/05/20 10:51 04/05/20 08:50 04/05/20 08:50 Oxygen Flow Rate (L/min) 2 Oxygen Delivery Method Room Air Weight: 54.068 kg Body Mass Index (BMI) 19.2 Intake and Output for Last 24 Hours 04/03/20 04/04/20 04/05/20 23:59 23:59 23:59 Intake Total 4571.67 / 4811.67 1390 / 1630 980 / 980 Output Total 750 / 750 Balance 4571.67 / 4061.67 640 / 880 980 / 980 Microbiology Past 72 Hours 04/04/20 17:00 Urine, Clean Catch Urine Culture - Preliminary Culture exhibits no growth. 04/03/20 15:28 Blood Culture (Wb) - Left Wrist Blood Culture - Preliminary No growth in 48 hours. 04/03/20 15:28 Blood Culture (Wb) - Anticubital Right Blood Culture - Preliminary No growth in 48 hours. 04/04/20 02:40 Urine, Clean Catch Legionella Antigen - Final 04/04/20 02:40 Urine, Clean Catch Streptococcus pneumoniae Antigen (M - Final 04/03/20 15:36 Mucosa - Nasopharyngeal - Final Laboratory Results 04/05/20 04:48: Vancomycin Trough < 0.8 L 04/05/20 04:48: WBC 29.4 H, RBC 3.76 L, Hgb 11.6 L, Hct 34.1 L, MCV 90.7, MCH 30.9, MCHC 34.0, RDW Std Deviation 39.8, RDW Coeff of Vaibhav 12.1, Plt Count 324, MPV 8.6 Current Medications Acetaminophen (Acetaminophen 325 Mg Tablet) 650 mg PO Q6H PRN PRN PRN Reason: Pain Score 1-10/Temp > 100.7 F Last Admin: 04/05/20 11:19 Dose: 650 mg Documented by: Al Hydroxide/Mg Hydroxide (Mag Hydrox/Al Hydrox/Simeth 30 Ml Udc) 30 ml PO Q6H PRN PRN PRN Reason: Gastric Burning Albuterol/Ipratropium (Ipratropium/Albuterol Sulfate 3 Ml Ampul.Neb) 3 ml INHALATION Q4H.RT RUBY Last Admin: 04/05/20 10:50 Dose: 3 ml Documented by: Bisacodyl (Bisacodyl 5 Mg Tablet) 10 mg PO DAILY PRN PRN PRN Reason: Constipation Buprenorphine HCl (Buprenorphine Hcl 2 Mg Tab.Subl) 2 mg SL Q8H [facility]; Taper Stop: 04/07/20 08:59 Last Admin: 04/05/20 08:54 Dose: 2 mg Documented by: Clonidine (Clonidine Hcl 0.1 Mg Tablet) 0.1 mg PO Q8H PRN PRN PRN Reason: RESTLESSNESS Last Admin: 04/04/20 22:47 Dose: 0.1 mg Documented by: Dicyclomine HCl (Dicyclomine 10 Mg Capsule) 20 mg PO Q6H PRN PRN PRN Reason: Abdominal Discomfort Last Admin: 04/05/20 05:21 Dose: 20 mg Documented by: Docusate Sodium (Docusate Sodium 100 Mg Capsule) 200 mg PO BID PRN PRN PRN Reason: Constipation Last Admin: 04/05/20 11:19 Dose: 200 mg Documented by: Enoxaparin Sodium (Enoxaparin 40 Mg/0.4 Ml Syringe) 40 mg SC DAILY [facility] Last Admin: 04/05/20 09:14 Dose: Not Given Documented by: Gabapentin (Gabapentin 300 Mg Capsule) 300 mg PO Q8H PRN PRN PRN Reason: moderate to severe anxiety Guaifenesin (Guaifenesin 1,200 Mg Tablet) 1,200 mg PO BID [facility] Last Admin: 04/05/20 09:00 Dose: 1,200 mg Documented by: Hydroxyzine Pamoate (Hydroxyzine Karla 25 Mg Capsule) 50 mg PO Q6H PRN PRN PRN Reason: mild anxiety Last Admin: 04/05/20 09:06 Dose: 50 mg Documented by: Piperacillin Sod/Tazobactam (Sod 3.375 gm/ Sodium Chloride) 50 mls @ 12.5 mls/hr IV Q8 [facility] Stop: 04/10/20 22:01 Last Infusion: 04/05/20 09:06 Dose: Infused Documented by: Sodium Chloride () 250 mls @ 15 mls/hr IV .[id number] PRN PRN Reason: Saline Flush Sodium Chloride () 250 mls @ 15 mls/hr IV .[id number] PRN PRN Reason: Additional IVPB Infusion Ibuprofen (Ibuprofen 600 Mg Tablet) 600 mg PO Q6H PRN PRN PRN Reason: Pain 1-10 or Fever Loperamide HCl (Loperamide 2 Mg Capsule) 2 mg PO Q4H PRN PRN PRN Reason: LOOSE STOOLS Methocarbamol (Methocarbamol 750 Mg Tablet) 1,500 mg PO Q6H PRN PRN PRN Reason: MUSCLE SPASM Last Admin: 04/05/20 09:00 Dose: 1,500 mg Documented by: Morphine Sulfate (Morphine 2 Mg/Ml Syringe) 2 - 4 mg IV Q3H PRN PRN PRN Reason: Pain Score 6-10 Nicotine (Nicotine 14 Mg Patch) 14 mg TRANSDERM. DAILY [facility] Last Admin: 04/05/20 09:00 Dose: 14 mg Documented by: Ondansetron HCl (Ondansetron 4 Mg/2 Ml Vial) 4 mg IV Q8H PRN PRN PRN Reason: NAUSEA/VOMITING Last Admin: 04/04/20 22:47 Dose: 4 mg Documented by: Polyethylene Glycol (Polyethylene Glycol 3350 17 Gm Packet) 17 gm PO DAILY [facility] Last Admin: 04/05/20 09:00 Dose: 17 gm Documented by: Prochlorperazine Edisylate (Prochlorperazine 10 Mg/2 Ml Vial) 10 mg IV Q6H PRN PRN PRN Reason: Nausea/Vomiting Sodium Chloride (0.9% Saline Lock 10 Ml Syringe) 10 - 40 ml IV UD PRN PRN Reason: SALINE FLUSH Last Admin: 04/05/20 02:50 Dose: 10 ml Documented by: Sodium Chloride (0.9% Saline Lock 10 Ml Syringe) 10 - 40 ml IV UD PRN PRN Reason: SALINE FLUSH Trazodone HCl (Trazodone 50 Mg Tablet) 50 mg PO QHS [facility] Last Admin: 04/04/20 23:05 Dose: Not Given Documented by: Assessment/Plan This patient was seen in conjunction with VINCENT Warner . I have independently interviewed and examined the patient and reviewed pertinent historical, laboratory, and other data. Please refer to VINCENT Warner note for details of this patient's presentation, findings, and recommendations. I have reviewed VINCENT Warner note and concur with documented findings. In brief, patient is a 1-year-old gentleman with history of polysubstance abuse admitted with severe sepsis secondary to right lower lobe pneumonia. Admitted to monitored bed for subsequent management. Patient was also found to be in acute opioid withdrawal nurse stating initiation of medical stabilization with Subutex 04/05/2020; patient seen still complains of right-sided pleuritic chest pain. His overall clinical condition is however improving. Physical Examination: HEENT: Atraumatic; EYES; Anicteric, Normal Conjunctiva NECK; supple, normal thyroid, RESPIRATORY: Diminished to auscultation CARDIOVASCULAR: Regular S1 S2, GI: soft, normoactive bowel sounds, : No Renal angle tenderness; EXTREMITIES: No edema, no clubbing, MUSCULOSKELETAL: no muscle waisting NEURO: Awake; no lateralizing signs. SKIN: No Rash PSYCH; Flat affect Assessment: 1. Severe sepsis secondary to right lower lobe pneumonia 2. Acute opioid withdrawal 3. Hypovolemic hyponatremia 4. Tobacco dependence 5. DVT prophylaxis Recommendations: 1. I have discussed the results of my overview and impressions with the patient 2. Options for management were reviewed Inpatient E&M: 57390 Subs Hosp L2
[2020-04-05] MEDS: Docusate Sodium 100 MG Capsule 200 MG PO (11:19)
[2020-04-05] MEDS: Gabapentin 300 MG Capsule PO (16:02)
[2020-04-05] MEDS: cloNIDine HCl 0.1 MG Tablet PO (16:02)
[2020-04-05] MEDS: Ibuprofen 600 MG Tablet PO (16:02)
[2020-04-05] MEDS: Morphine 2 MG/ML Syringe IV (20:53)
[2020-04-06] VITALS (20 sets, daily range): BP systolic 106–127; BP diastolic 60–77; PULSE 98–132; RESP 18–36; TEMP 36.7–37.9; O2SAT 85–100
--- NOTE | 2020-04-06 | FLU_PTH ---
PATIENT: MED QUICK EMILY LOC: [facility] U#:[id number] AGE/SX: 39/M ROOM: [facility] RE04/03/[address]: Dr. Aliza Romo MD : 1980 BED: 1 DIS: 04/07/2020 SPEC #: [id number] RECD: 04/06/20 15:01 STATUS: KRISTIN REShell #: [id number] SHYAM: 04/06/20 00:[address]: Aliza Romo DEPT: CYTOLOGY RECD BY: Priyank Walsh ENTERED: 04/07/20 06:56 SP TYPE: Fluid OTHR DR: MD Dr. Rachel Murphy, DO No Primary Care Phys Tissues: THORACIC FLUID Procedures: Special Stain Group II Surgery Specimen Level IV Cytospin Fluid HEADER OPERATION: Right thoracentesis PRE-OP DIAGNOSIS: Right pleural effusion TISSUE SUBMITTED: Right thoracentesis fluid for cytology DIAGNOSIS CYTOLOGY Right thoracentesis fluid for cytology (cytospin and cell block): Negative for malignant cells. Marked acute inflammation. ARABELLA:bert 04/08/20 CYTOLOGY STUDY Slides are reviewed. CYTOLOGY GROSS Received is 90 ml of yellow cloudy fluid labeled with the patient's name and and designated per the requisition as thoracentesis. Submitted for cytology preparation including cell block. / bert 04/07/20 TC:2 CPT: 31333, 43847
[2020-04-06] MEDS: Buprenorphine HCl 2 MG TAB.SUBL SL ×3 (01:04→22:05)
[2020-04-06] MEDS: Ipratropium/Albuterol Sulfate 3 ML AMPUL.NEB INHALATION ×4 (05:11→23:39)
--- NOTE | 2020-04-06 05:16 | RAD_ITS ---
HISTORY: SOB ADDITIONAL HISTORY: None provided. EXAMINATION/TECHNIQUE: XR Chest 1 View AP/PA Number of images including paperwork: 1 COMPARISON: 04/03/[address] FINDINGS: LUNGS AND PLEURA: Moderate to large likely a right pleural effusion has developed with hazy right hemithorax opacity. Bibasilar airspace opacities. CARDIAC SILHOUETTE: Unremarkable. MEDIASTINUM AND EDIL: Unremarkable. UPPER ABDOMEN: Unremarkable. SKELETON AND SOFT TISSUES: No acute skeletal findings. Resection versus resorption right distal clavicle again seen. OTHER DEVICES AND HARDWARE: None. RAD/Chest 1 View (Portable) IMPRESSION: Moderate to large partially loculated right pleural effusion. Bibasilar infiltrates. at 0629 Reported and signed by: Jacqueline Blanton MD Electronically Signed: Jacqueline Blanton MD at 6:29 EST Tel , Service support ,
--- NOTE | 2020-04-06 05:17 | NURSING ---
Addendum entered by Mya Rodas 04/06/20 05:19: LUNGS WITH CRACKLES BILAT Original Note: PT SLEEPING, WOKE TO DO VITALS, PT TEMP 100.2, RESP 30, PT C/O SEVERE PAIN WITH A DEEP INSPIRATION, PULSE OX 88 ON RA, PLACED ON 2LNC, RESP CALL AND NOTIFIED, BREATHING TREATMENT GIVEN, DR JIMENEZ CALLED, TO ORDER A CHEST XRAY
[2020-04-06] MEDS: cloNIDine HCl 0.1 MG Tablet PO (05:28)
[2020-04-06] MEDS: Bisacodyl 5 MG Tablet 10 MG PO (05:28)
[2020-04-06] MEDS: Morphine 2 MG/ML Syringe IV (05:33)
[2020-04-06] MEDS: Ibuprofen 600 MG Tablet PO ×3 (05:52→23:59)
[2020-04-06 05:58] LABS: Hemoglobin 11.1 g/dL (13.0-16.5); Mean Corp Hgb Conc 33.6 g/dL (32-36); Mean Corpuscular Hgb 30.4 pg (27.0-32.0); Mean Corpuscular Volume 90.4 fL (80-94); Mean Platelet Vol. 8.5 fl (6.2-12.0); Platelet Count 370 K/mm3 (150-450); RBC Distribution Width CV 12.3 % (11.6-14.6); RBC Distribution Width SD 41.1 fl (35.1-43.9); Red Blood Count 3.65 M/mm3 (4.6-6.2); White Blood Count 24.1 K/mm3 (4.4-11.0)
[2020-04-06] MEDS: HYDROmorphone 0.5 MG/0.5 ML SYRINGE IV (05:58)
--- NOTE | 2020-04-06 06:21 | CT_ITS ---
HISTORY: DYSPNEA, RT RIB/CP, COUGH, RLL PNEUMONIA, OPIOID WITHDRAWAL ADDITIONAL HISTORY: None provided. EXAMINATION/TECHNIQUE: CTA Chest WO/W Contrast Injection PULMONARY EMBOLISM PROTOCOL: 2D and 3D images to include MIP and/or volume rendered images CONTRAST: IV 75mL [id number] Number of images including paperwork: 1108 A radiation dose optimization technique was used for this scan. COMPARISON: 04/03/2020 FINDINGS: PULMONARY ARTERIES: No pulmonary arterial filling defects. AORTA AND GREAT VESSELS: No dissection. HEART/PERICARDIUM: Unremarkable. MEDIASTINUM: Unremarkable. ADENOPATHY: No pathologic appearing adenopathy. THYROID: Unremarkable visualized portions. LUNGS AND PLEURA: Increasing right pleural effusion which is now large in size and loculated. No definite pleural air. Consolidation with volume loss noted in the right lower lobe. Compressive atelectasis noted in the right upper lobe. Mild atelectatic changes also noted in the right middle lobe and left lower lobe. Small left pleural effusion. 2 mm right upper lobe lung nodule, series 2 image 129 is unchanged. Consider follow-up chest CT in 12 months to assess stability if the patient is considered to be high risk for lung cancer. UPPER ABDOMEN: Unremarkable. OSSEOUS AND SOFT TISSUE STRUCTURES: No acute skeletal findings. CT/CTA Chest W/WO Contrast IMPRESSION: 1. Enlarging loculated right pleural effusion, possibly parapneumonic effusion or empyema. 2. Right lower lobe consolidation compatible with pneumonia. 3. Small left pleural effusion. 4. No pulmonary embolus detected. 5. Additional findings above. Individualized dose optimization techniques were used for this CT. at 0708 Reported and signed by: Jacqueline Blanton MD Electronically Signed: Jacqueline Blanton MD at 7:08 EST Tel , Service support ,
[2020-04-06 06:23] LABS: Anion Gap 3 (5-15); BUN 9 mg/dL (7-18); BUN/Creat Ratio 14.1 RATIO (10-20); Calcium,Total 8.2 mg/dL (8.5-10.1); Chloride 110 mmol/L (98-107); Creatinine, Serum 0.64 mg/dL (0.70-1.30); EST Glomerular Filtration Rate 147 mL/min (>60); Est Glom Filt Rate - Afr Amer 178 mL/min (>60); Estimated Creatinine Clearance 117.34 ml/min; Glucose 143 mg/dL (74-106); Potassium 3.8 mmol/L (3.5-5.1); Sodium Level 138 mmol/L (136-145)
--- NOTE | 2020-04-06 06:26 | PCM.HOSP.N ---
Hospitalist Note Patient with increased dyspnea, increased respiratory rate, tachycardia, pleuritic pain. CXR repeat with significant R sided change, requested repeat CT Chest, last performed 04/03/20 given severity of appearance/change. Review noted negative prior COVID testing. ABG requested and BIPAP. Discussed with RT and will trial BIPAP and if necessary will shift to the ICU pending his response.
[2020-04-06 07:21] LABS: Blood Gas Specimen Type VEN; O2 Delivery Device Cannula; SITE R Radial; VBG BASE EXCESS 1 mmol/L (-1.0-3.5); VBG Bicarbonate 25 mmol/L (22-26); VBG PO2 45 mmHg (25-40); VBG SO2 81 % (50-70); VBG TCO2 27 mmol/L (23-33); VBG pCO2 39.9 mmHg (41-51); VBG pH 7.41 (7.32-7.42)
--- NOTE | 2020-04-06 07:43 | US_ITS ---
PROCEDURE: ULTRASOUND GUIDED THORACENTESIS. DATE: 04/06/2020. INDICATION: Male, 39 years old. Right pleural effusion PHYSICIAN: Cole Banerjee M.D. PROCEDURE: The risks, benefits, and alternatives to the procedure were explained to the patient. The specific risks of bleeding, infection, and pneumothorax requiring chest tube insertion were discussed and accepted. Written informed consent was obtained. Ultrasonographic evaluation of the right lower pleural space was carried out. An adequate pocket was identified. The patient was placed in the sitting, upright position. The overlying skin was prepped and draped in sterile fashion. 1% lidocaine was administered subcutaneously for local anesthesia. Under ultrasound guidance, a 5 Wallisian thoracentesis needle/catheter system was advanced into the right posterior lower pleural fluid collection. Approximately 400 mL of kelly-colored fluid fluid was drained. The catheter was removed, and a sterile dressing was applied. A specimen was collected and sent to the laboratory for analysis, as requested by the referring clinician. The patient tolerated the procedure well. A chest x-ray was ordered. US/Thoracentesis W US IMPRESSION: Ultrasound-guided right thoracentesis. Electronically Signed: Cole Banerjee, at 15:11 EST , Service support ,
--- NOTE | 2020-04-06 07:47 | PCM.PN.HOSP ---
Patient Problems: Active and Suspected Problems (Last Reviewed 04/03/20 @ 19:[address] Rachel Garcia, DO) Community acquired pneumonia (Acute) Sepsis (Acute) Leukocytosis (Acute) Hyponatremia (Acute) Subjective: Mr Hartman is a 39 year old WM who presented to the ED on 04/03/2020 with shortness of breath, cough, fever, R pleuritic pain and malaise that started 24 hrs prior to admission. He is an IVDU and states that his last fentanyl use was about 2 days prior to admission. In the ED he was tachycardic, Tmax in the ED was 100.5 and his sats were stable on RA at 95-100%. He was found to have a white count of 31.2 and a L shift. Na was 132. His bili was slightly elevated at 1.1 but LFT were in WNL. He was started on vanc and zosyn in the ED. He was dx with PNA and treated here in 07/2018 (s. pneumo and MRSA). He has remained febrile and respiratory status was worsened. He is now on [address] chest shows a sizable pleural effusion that is loculated and is of concern for parapneumonic effusion vs empyema. Thora ordered with fluid cx and studies. On Zosyn and Vanc initially but with neg Bcx d/c vanc and added Zyvox. May need transfer to tertiary center for CT eval (VATS) if unable to drain fluid. Pulm is following. HIV is pending SOB and fevers with tachypnea overnight. Proof Press Operator obtained an ABG and CT chest. Pt states that he is having pain on the R side of his chest still at the inferior, post and lateral aspect. CT shows effusion that is loculated--> thora with studies today. D/W pt. Vitals/I&O's: Vital Signs Temp Pulse Resp BP Pulse Ox 99.7 F H 125 H 28 H 108/66 95 04/06/20 06:13 04/06/20 06:13 04/06/20 06:13 04/06/20 06:13 04/06/20 06:13 Oxygen Flow Rate (L/min) 2 Oxygen Delivery Method Nasal Cannula Weight: 54.068 kg Body Mass Index (BMI) 19.2 Intake and Output for Last 24 Hours 04/04/20 04/05/20 04/06/20 23:59 23:59 23:59 Intake Total 1390 / 1630 1530 / 1830 550 / 550 Output Total 750 / 750 Balance 640 / 880 1530 / 1830 550 / 550 General: Alert, Oriented x3, Cooperative, No apparent distress, Well developed, Well nourished, - - Sleeping but awakens easily, slightly diaphoretic but appears comfortable while lying still HEENT: Atraumatic, PERRLA, EOMI, EAC Clear Oral: Moist Mucosa, No Gingival or Mucosal Lesions/ Ulcerations, - - fair dentition Neck: Supple, No JVD, No Nodes, Trachea Midline, Thyroid Normal Size and Texture Lungs: No rhonchi, No wheeze, No rales, Diminished - R Base to mid lung field with dullness on percussion Cardiovascular: Regular Rhythm, Normal S1, Normal S2, No murmurs, No Ectopic Activity, Tachycardic Abdomen: Bowel Sounds Present, Soft, Non Tender, Non-Distended, No hernias noted Extremities: No clubbing, No cyanosis, No edema, Capillary Refill Less than 3 Seconds, Peripheral Pulses Normal Skin: No rashes, No breakdown Musculoskeletal: No Tenderness to Palpation of Joints or Extremities, No Muscle Wasting Lymphatic: No Cervical, Supraclavicular, or Inguinal Adenopathy Neurological: Cranial nerves II-XII grossly intact, Deep Tendon Reflexes 2+/4 and Symmetrical, Neuro grossly intact, Motor Exam 5/5 strength throughout, Muscle tone normal, Sensory exam intact to light touch and pain, Coordination normal Psych/Mental Status: Normal Affect, Appropriate Microbiology Past 72 Hours 04/04/20 17:00 Urine, Clean Catch Urine Culture - Preliminary Culture exhibits no growth. 04/03/20 15:28 Blood Culture (Wb) - Left Wrist Blood Culture - Preliminary No growth in 48 hours. 04/03/20 15:28 Blood Culture (Wb) - Anticubital Right Blood Culture - Preliminary No growth in 48 hours. 04/04/20 02:40 Urine, Clean Catch Legionella Antigen - Final 04/04/20 02:40 Urine, Clean Catch Streptococcus pneumoniae Antigen (M - Final 04/03/20 15:36 Mucosa - Nasopharyngeal - Final Laboratory Results 04/06/20 05:50: WBC 24.1 H, RBC 3.65 L, Hgb 11.1 L, Hct 33.0 L, MCV 90.4, MCH 30.4, MCHC 33.6, RDW Std Deviation 41.1, RDW Coeff of Vaibhav 12.3, Plt Count 370, MPV 8.5 04/06/20 05:50: Sodium 138, Potassium 3.8, Chloride 110 H, Carbon Dioxide 25.0, Anion Gap 3 L, BUN 9, Creatinine 0.64 L, Estim Creat Clear Calc 117.34, Est GFR (MDRD) Af Amer 178, Est GFR (MDRD) Non-Af 147, BUN/Creatinine Ratio 14.1, Glucose 143 H, Calcium 8.2 L 04/06/20 07:13: Specimen Type ROSETTA, Sample Site R Radial, VBG pH 7.41, VBG pO2 45 H, VBG HCO3 25, VBG Total CO2 27, VBG O2 Sat (Calc) 81 H, VBG Base Excess 1, POC Mix VBG pCO2 Pt Tmp 39.9 L, O2 Delivery Device Cannula, Liter Flow 3.0 Current Medications Acetaminophen (Acetaminophen 325 Mg Tablet) 650 mg PO Q6H PRN PRN PRN Reason: Pain Score 1-10/Temp > 100.7 F Last Admin: 04/05/20 20:50 Dose: 650 mg Documented by: Al Hydroxide/Mg Hydroxide (Mag Hydrox/Al Hydrox/Simeth 30 Ml Udc) 30 ml PO Q6H PRN PRN PRN Reason: Gastric Burning Albuterol Sulfate (Albuterol 2.5 Mg/3 Ml Vial.Neb.) 2.5 mg INHALATION Q2H PRN PRN PRN Reason: Dyspnea, wheezing Albuterol/Ipratropium (Ipratropium/Albuterol Sulfate 3 Ml Ampul.Neb) 3 ml INHALATION Q4H.RT RUBY Last Admin: 04/06/20 05:11 Dose: 3 ml Documented by: Bisacodyl (Bisacodyl 5 Mg Tablet) 10 mg PO DAILY PRN PRN PRN Reason: Constipation Last Admin: 04/06/20 05:28 Dose: 10 mg Documented by: Buprenorphine HCl (Buprenorphine Hcl 2 Mg Tab.Subl) 2 mg SL Q8H RUBY; Taper Stop: 04/07/20 08:59 Last Admin: 04/06/20 01:04 Dose: 2 mg Documented by: Clonidine (Clonidine Hcl 0.1 Mg Tablet) 0.1 mg PO Q8H PRN PRN PRN Reason: RESTLESSNESS Last Admin: 04/06/20 05:28 Dose: 0.1 mg Documented by: Dicyclomine HCl (Dicyclomine 10 Mg Capsule) 20 mg PO Q6H PRN PRN PRN Reason: Abdominal Discomfort Last Admin: 04/05/20 16:02 Dose: 20 mg Documented by: Docusate Sodium (Docusate Sodium 100 Mg Capsule) 200 mg PO BID PRN PRN PRN Reason: Constipation Last Admin: 04/05/20 11:19 Dose: 200 mg Documented by: Enoxaparin Sodium (Enoxaparin 40 Mg/0.4 Ml Syringe) 40 mg SC DAILY [facility] Last Admin: 04/05/20 09:14 Dose: Not Given Documented by: Gabapentin (Gabapentin 300 Mg Capsule) 300 mg PO Q8H PRN PRN PRN Reason: moderate to severe anxiety Last Admin: 04/05/20 16:02 Dose: 300 mg Documented by: Guaifenesin (Guaifenesin 1,200 Mg Tablet) 1,200 mg PO BID [facility] Last Admin: 04/05/20 20:40 Dose: 1,200 mg Documented by: Hydroxyzine Pamoate (Hydroxyzine Karla 25 Mg Capsule) 50 mg PO Q6H PRN PRN PRN Reason: mild anxiety Last Admin: 04/05/20 20:53 Dose: 50 mg Documented by: Piperacillin Sod/Tazobactam (Sod 3.375 gm/ Sodium Chloride) 50 mls @ 12.5 mls/hr IV Q8 [facility] Stop: 04/10/20 22:01 Last Admin: 04/06/20 05:35 Dose: 12.5 mls/hr Documented by: Sodium Chloride () 250 mls @ 15 mls/hr IV .[id number] PRN PRN Reason: Saline Flush Sodium Chloride () 250 mls @ 15 mls/hr IV .[id number] PRN PRN Reason: Additional IVPB Infusion Linezolid (Zyvox 600mg) 600 mg in 300 mls @ 200 mls/hr IV Q12 [facility] Ibuprofen (Ibuprofen 600 Mg Tablet) 600 mg PO Q6H PRN PRN PRN Reason: Pain 1-10 or Fever Last Admin: 04/06/20 05:52 Dose: 600 mg Documented by: Loperamide HCl (Loperamide 2 Mg Capsule) 2 mg PO Q4H PRN PRN PRN Reason: LOOSE STOOLS Methocarbamol (Methocarbamol 750 Mg Tablet) 1,500 mg PO Q6H PRN PRN PRN Reason: MUSCLE SPASM Last Admin: 04/05/20 09:00 Dose: 1,500 mg Documented by: Nicotine (Nicotine 14 Mg Patch) 14 mg TRANSDERM. DAILY [facility] Last Admin: 04/05/20 09:00 Dose: 14 mg Documented by: Ondansetron HCl (Ondansetron 4 Mg/2 Ml Vial) 4 mg IV Q8H PRN PRN PRN Reason: NAUSEA/VOMITING Last Admin: 04/04/20 22:47 Dose: 4 mg Documented by: Polyethylene Glycol (Polyethylene Glycol 3350 17 Gm Packet) 17 gm PO DAILY [facility] Last Admin: 04/05/20 09:00 Dose: 17 gm Documented by: Prochlorperazine Edisylate (Prochlorperazine 10 Mg/2 Ml Vial) 10 mg IV Q6H PRN PRN PRN Reason: Nausea/Vomiting Sodium Chloride (0.9% Saline Lock 10 Ml Syringe) 10 - 40 ml IV UD PRN PRN Reason: SALINE FLUSH Last Admin: 04/05/20 14:35 Dose: 10 ml Documented by: Sodium Chloride (0.9% Saline Lock 10 Ml Syringe) 10 - 40 ml IV UD PRN PRN Reason: SALINE FLUSH Sodium Chloride (Sodium Chloride 0.65% 1 Sallis Sallis.Btl) 2 spray NASAL TID PRN PRN PRN Reason: NASAL DRYNESS Trazodone HCl (Trazodone 50 Mg Tablet) 50 mg PO QHS [facility] Last Admin: 04/05/20 20:40 Dose: Not Given Documented by: STROKE Vital Signs/Narrative: Vital Signs Temp Pulse Resp BP Pulse Ox 04/06/20 06:13 99.7 F H 125 H 28 H 108/66 95 04/06/20 05:36 125 H 26 H 95 04/06/20 05:11 130 H 28 H 95 04/06/20 04:00 100.2 F H 118 H 20 H 117/72 95 Medical Necessity - Tobacco Use Smoking Status: Heavy Smoker (>10/day) Tobacco Use: Cigarettes Assessment/Plan All Active Problems (Last Reviewed 04/03/20 @ 19:[address] Rachel Garcia, DO) Community acquired pneumonia (Acute) Sepsis (Acute) Leukocytosis (Acute) Hyponatremia (Acute) Cellulitis of left lower extremity without foot (Resolved) MRSA bacteremia (Resolved) Severe Sepsis 2/2 RLL PNA -white count is improving -fevers better but still present -COVID neg -BCx are neg -Urine antigens are neg -continue abx broad spectrum Acute Respiratory Failure 2/2 RLL PNA/R Pleural Effusion -had S.Pneumo and MRSA in past (08/19/2018) -Zosyn and Vanc--> will start Zyvox today as Vanc level was low and concern for MRSA with hx -add acapella -continue aerosols -thoracentesis today for R effusion to r/o parapneumonic effusion/empyema -on 2 L nasal cannula now --> wean as able -VBG with -Pulm following R Pleural Effusion -Thora today--> discussed with pt and explained procedure and need for this and he voiced concern but understood -fluid studies and cx sent -may need transfer to tertiary center if unable to completely drain for VATS -d/w pt as well -pulm consulted--> d/w Dr. Nye and scans reviewed with him Hepatitis C -? carrier state vs cleared infection -viral load pending -LFT WNL on admission Acute Opiate Withdrawal -continue protocol for withdrawal -f/u with 180 after d/c IVDU/Polysubstance Abuse -HIV pending -Hep C ab +--> assessing status -recommend cessation Tobacco Abuse -nicotine patch DVT Prophylaxis -Lovenox daily Code Status -Full Inpatient E&M: 14879 Subs Hosp L3
[2020-04-06] MEDS: guaiFENesin 1,200 MG Tablet 1200 MG PO ×2 (09:32→22:03)
[2020-04-06] MEDS: Polyethylene Glycol 3350 17 GM PACKET PO (09:32)
[2020-04-06 09:42] LABS: HIV - WCH Non-Reactive (Nonreactive)
[2020-04-06] MEDS: Linezolid 600 MG 600 MG/300 ML BAG 200 MG IV (11:17)
[2020-04-06] MEDS: hydrOXYzine PAM 25 MG Capsule 50 MG PO ×2 (13:49→23:59)
--- NOTE | 2020-04-06 14:48 | RAD_ITS ---
STUDY: X-RAY CHEST REASON FOR EXAM: Male, 39 years old. Post thoracentesis TECHNIQUE: AP inspiration and expiration views. COMPARISON: Comparison is made with prior study done earlier today at 5:35 AM. FINDINGS: The patient is status post right thoracentesis. No evidence of pneumothorax. The remainder of the examination is unchanged. Persistent widening of the right paratracheal space. RAD/Chest Insp/Exp 2 View IMPRESSION: Status post right thoracentesis. There is no evidence of pneumothorax. Electronically Signed: Cole Banerjee, at 14:58 EST , Service support ,
[2020-04-06] MEDS: Enoxaparin 40 MG/0.4 ML Syringe SC ×2 (15:10)
--- NOTE | 2020-04-06 15:23 | CT_ITS ---
STUDY: CT CHEST WITHOUT CONTRAST REASON FOR EXAM: Male, 39 years old. S/P THORACENTESIS, PLEURAL EFFUSION, HX IV DRUG USE RADIATION DOSAGE (If Supplied By Facility): CTDIvol = ( 6.32 ) mGy, DLP = ( 208.41 ) mGycm TECHNIQUE: Transaxial imaging was performed without the administration of intravenous contrast material. Multiplanar coronal and sagittal images were reformatted. Individualized dose optimization techniques were used for this CT. COMPARISON: Comparison is made with prior study dated 04/06/2020 at 6:44 AM. FINDINGS: The patient is status post left thoracentesis. Residual loculated pleural fluid collections are seen in the right paratracheal region. There has been improved aeration of the lung bases as compared to prior study. Normal heart and pericardium. Normal mediastinum. Normal hilar regions. Normal unenhanced pulmonary arteries. Normal aorta arch and descending thoracic aorta. Normal osseous structures. There is no demonstrated abnormality of the visualized upper abdomen. CT/Chest without Contrast IMPRESSION: Status post right thoracentesis with residual loculated pleural fluid and consolidation in the right lower lobe. Loculated effusion is seen in the right medial aspect of the right upper lobe. Electronically Signed: Cole Banerjee, at 16:04 EST , Service support ,
--- NOTE | 2020-04-06 15:32 | NURSING ---
PT C/O PAIN AFTER THORACENTESIS. DR JUSTYN MCKEON & N.O. RECEIVED.
[2020-04-06] MEDS: HYDROmorphone 1 MG/ML Syringe IV (15:40)
[2020-04-06] MEDS: 0.9% Saline Lock 10 ML Syringe IV ×2 (15:40→16:02)
--- NOTE | 2020-04-06 16:03 | NURSING ---
ZOSYN STARTED LATE DUE TO PT HAVING THORACENTESIS
[2020-04-06 16:07] LABS: Glucose, Body Fluid < 1 mg/dL (40-70); LDH,Body Fluid 989 Units/l (Not Establ.); Protein, Body Fluid 3.4 g/dL (Not Establ.)
[2020-04-06 16:17] LABS: Body Fluid Mononuclear WBC # 1.685 10^3/uL; Body Fluid Mononuclear WBC % 6.2 %; Body Fluid Polynuclear WBC % 93.8 %; Red Cell Count/Body Fluid 0.006 10^6/ul
--- NOTE | 2020-04-06 16:53 | PCM.CONS.PUL ---
Problem List (1) Empyema of pleural space Status: Acute (2) Community acquired pneumonia Status: Acute (3) Sepsis Status: Acute (4) IVDU (intravenous drug user) Status: Chronic (5) Hepatitis C Status: Chronic (6) Leukocytosis Status: Acute (7) Hyponatremia Status: Acute Reason for Consult Date of Consultation: 04/06/20 Reason for Consultation: Pleural effusion History of Present Illness: The patient is a 39 year old M, with past medical history listed below, who presented to [facility] on 04/03/2020 secondary to cough, shortness of breath, abdominal pain, fever and chills. Patient reported a development of symptoms over the last 2 days. Patient had been having some nausea, but no vomiting. Patient had also reported some right lower quadrant abdominal pain and described it as achy and 7 out of 10. Patient denied any urinary symptoms. Patient did report a cough that was minimally productive. Patient does use IV drugs at baseline and stated the last time he was admitted for an infection was when I was here last. In the ER, patient was noted to be febrile at 100.6 ?F, tachycardic at 123 bpm and 95%. A CT scan of the chest from 04/03/2020 showed a right lower lobe pneumonia with a small pleural effusion and associated infiltrate. Patient was noted to have a white blood cell count of 31.3 at that time. Patient's coagulation studies were within normal limits along with a CMP. Lactate was within normal limits, so patient was admitted to the floor for further evaluation. Patient was given antibiotics at that time. Given patient's failure to progress, a pulmonary consult was obtained. Patient reports he feels subjectively improved following the thoracentesis that drained 400 cc. Patient was initially treated with vancomycin, but this has since been discontinued. HIV testing was negative. Patient does report an extensive smoking history, but is never had a pulmonary function test. Patient is unaware of any previous heart defect such as endocarditis. Review of systems otherwise negative from a constitutional, HEENT, respiratory, cardiovascular, GI, genitourinary, musculoskeletal, skin, neurologic, psychiatric and hematologic system unless stated above. Past Medical History Past Medical History (Chronic Problems): Chronic Problems (Last Reviewed 04/03/20 @ 19:[address] Rachel Garcia DO) IVDU (intravenous drug user) (Chronic) Hepatitis C (Chronic) Medical History: Medical History (Last Reviewed 04/03/20 @ 19:[address] Rachel Garcia DO) Hypertension I10 Allergies bee venom protein (honey bee) Allergy (Verified 04/03/20 15:12) Anaphylaxis seasonal Allergy (Uncoded 04/03/20 15:12) Other Home Medications: Ambulatory Orders Medication Instructions Recorded NK 04/03/20 Surgical History: tonsillectomy, - - Collarbone surgery with cadaver. Psychiatric History: No pertinent psych hx Lives: Friends Smoking Status: Heavy Smoker (>10/day) Tobacco Use: Cigarettes Alcohol: None Drugs: - - *Family History Maternal History Items: Diabetes, Heart Disease Paternal History Items: - - Patient denies knowledge of paternal medical history including cardiac history. Review of Systems Comment: See HPI Patient Problems: Active and Suspected Problems (Last Reviewed 04/03/20 @ 19:[address] Rachel Garcia DO) Community acquired pneumonia (Acute) Sepsis (Acute) Leukocytosis (Acute) Hyponatremia (Acute) Objective: All imaging was personally reviewed. Patient did have a thoracentesis with a 400 cc removal. Follow-up CT scan does show a significant loculated effusion in the midline tracking through mediastinal structures. Patient does have improved aeration of the right lower lobe. - Physical Exam Vitals/I&O's: Vital Signs Temp Pulse Resp BP Pulse Ox 37.4 C H 119 H 24 H 111/69 96 04/06/20 15:03 04/06/20 15:03 04/06/20 15:03 04/06/20 15:03 04/06/20 15:03 Oxygen Flow Rate (L/min) [3] 3 Oxygen Flow Rate (L/min) [2] 3 Oxygen Flow Rate (L/min) [1 ( 3 Initial Baseline)] Oxygen Flow Rate (L/min) 3 Oxygen Delivery Method [3] Nasal Cannula Oxygen Delivery Method [2] Nasal Cannula Oxygen Delivery Method [1 ( Nasal Cannula Initial Baseline)] Oxygen Delivery Method Nasal Cannula Weight: 54.068 kg Body Mass Index (BMI) 19.2 Intake and Output for Last 24 Hours 04/04/20 04/05/20 04/06/20 23:59 23:59 23:59 Intake Total 1390 / 1630 1530 / 1830 1140 / 1140 Output Total 750 / 750 400 / 400 Balance 640 / 880 1530 / 1830 740 / 740 General: Alert, Oriented x3, Cooperative, - - Anxious. Thin build. Appears ill. HEENT: Atraumatic, PERRLA, EOMI, Normocephalic, - - No scleral icterus or injection noted Oral: No Gingival or Mucosal Lesions/ Ulcerations, Dry Mucosa Neck: Supple, No JVD, No Nodes, Trachea Midline Lungs: No rales, Diminished - Dullness to percussion at the right base, Rhonchi Cardiovascular: Normal S1, Normal S2, No murmurs, No rub noted, No Gallop, Tachycardic Abdomen: Bowel Sounds Present, Soft, Non Tender, Non-Distended Extremities: No clubbing, No cyanosis, No edema, Capillary Refill Less than 3 Seconds Skin: Rash Present - Punctate ulcerations noted Musculoskeletal: No Tenderness to Palpation of Joints or Extremities Lymphatic: No Cervical, Supraclavicular, or Inguinal Adenopathy Neurological: Cranial nerves II-XII grossly intact, Neuro grossly intact, Motor Exam 5/5 strength throughout Psych/Mental Status: Appropriate, Anxious Microbiology Past 72 Hours 04/03/20 16:25 Blood Culture (Wb) - Right Forearm Blood Culture - Preliminary No growth in 48 hours. 04/04/20 17:00 Urine, Clean Catch Urine Culture - Preliminary Culture exhibits no growth. 04/03/20 15:28 Blood Culture (Wb) - Left Wrist Blood Culture - Preliminary No growth in 48 hours. 04/03/20 15:28 Blood Culture (Wb) - Anticubital Right Blood Culture - Preliminary No growth in 48 hours. 04/04/20 02:40 Urine, Clean Catch Legionella Antigen - Final 04/04/20 02:40 Urine, Clean Catch Streptococcus pneumoniae Antigen (M - Final 04/03/20 15:36 Mucosa - Nasopharyngeal - Final Laboratory Results 04/06/20 04:48: HIV 1&2 Antibody Non-Reactive 04/06/20 05:50: WBC 24.1 H, RBC 3.65 L, Hgb 11.1 L, Hct 33.0 L, MCV 90.4, MCH 30.4, MCHC 33.6, RDW Std Deviation 41.1, RDW Coeff of Vaibhav 12.3, Plt Count 370, MPV 8.5 04/06/20 05:50: Sodium 138, Potassium 3.8, Chloride 110 H, Carbon Dioxide 25.0, Anion Gap 3 L, BUN 9, Creatinine 0.64 L, Estim Creat Clear Calc 117.34, Est GFR (MDRD) Af Amer 178, Est GFR (MDRD) Non-Af 147, BUN/Creatinine Ratio 14.1, Glucose 143 H, Calcium 8.2 L 04/06/20 07:13: Specimen Type ROSETTA, Sample Site R Radial, VBG pH 7.41, VBG pO2 45 H, VBG HCO3 25, VBG Total CO2 27, VBG O2 Sat (Calc) 81 H, VBG Base Excess 1, POC Mix VBG pCO2 Pt Tmp 39.9 L, O2 Delivery Device Cannula, Liter Flow 3.0 04/06/20 14:35: Fluid Glucose < 1 L*, Fluid Total Protein 3.4, Fluid LDH 989 04/06/20 14:35: Fluid Source Pending, Fluid Color Pending, Fluid Appearance Pending, Fluid WBC Pending, Fluid RBC 0.006, Fluid Tot Cell Count Pending, Fld Polynuclear WBCs # 25.469, Fld Polynuclear WBCs % 93.8, Fluid Mononuclear WBCs 1.685, Fld Mononuclear WBCs % 6.2, Fl Pathologist Comment Pending, Fluid Comment 2 Pending Current Medications Acetaminophen (Acetaminophen 325 Mg Tablet) 650 mg PO Q6H PRN PRN PRN Reason: Pain Score 1-10/Temp > 100.7 F Last Admin: 04/05/20 20:50 Dose: 650 mg Documented by: Al Hydroxide/Mg Hydroxide (Mag Hydrox/Al Hydrox/Simeth 30 Ml Udc) 30 ml PO Q6H PRN PRN PRN Reason: Gastric Burning Albuterol Sulfate (Albuterol 2.5 Mg/3 Ml Vial.Neb.) 2.5 mg INHALATION Q2H PRN PRN PRN Reason: Dyspnea, wheezing Albuterol/Ipratropium (Ipratropium/Albuterol Sulfate 3 Ml Ampul.Neb) 3 ml INHALATION Q4H.RT RUBY Last Admin: 04/06/20 10:27 Dose: 3 ml Documented by: Bisacodyl (Bisacodyl 5 Mg Tablet) 10 mg PO DAILY PRN PRN PRN Reason: Constipation Last Admin: 04/06/20 05:28 Dose: 10 mg Documented by: Buprenorphine HCl (Buprenorphine Hcl 2 Mg Tab.Subl) 2 mg SL Q12H [facility]; Taper Stop: 04/07/20 08:59 Last Admin: 04/06/20 09:30 Dose: 2 mg Documented by: Clonidine (Clonidine Hcl 0.1 Mg Tablet) 0.1 mg PO Q8H PRN PRN PRN Reason: RESTLESSNESS Last Admin: 04/06/20 05:28 Dose: 0.1 mg Documented by: Dicyclomine HCl (Dicyclomine 10 Mg Capsule) 20 mg PO Q6H PRN PRN PRN Reason: Abdominal Discomfort Last Admin: 04/05/20 16:02 Dose: 20 mg Documented by: Docusate Sodium (Docusate Sodium 100 Mg Capsule) 200 mg PO BID PRN PRN PRN Reason: Constipation Last Admin: 04/05/20 11:19 Dose: 200 mg Documented by: Enoxaparin Sodium (Enoxaparin 40 Mg/0.4 Ml Syringe) 40 mg SC DAILY [facility] Last Admin: 04/06/20 15:10 Dose: 40 mg Documented by: Gabapentin (Gabapentin 300 Mg Capsule) 300 mg PO Q8H PRN PRN PRN Reason: moderate to severe anxiety Last Admin: 04/05/20 16:02 Dose: 300 mg Documented by: Guaifenesin (Guaifenesin 1,200 Mg Tablet) 1,200 mg PO BID [facility] Last Admin: 04/06/20 09:32 Dose: 1,200 mg Documented by: Hydroxyzine Pamoate (Hydroxyzine Karla 25 Mg Capsule) 50 mg PO Q6H PRN PRN PRN Reason: mild anxiety Last Admin: 04/06/20 13:49 Dose: 50 mg Documented by: Piperacillin Sod/Tazobactam (Sod 3.375 gm/ Sodium Chloride) 50 mls @ 12.5 mls/hr IV Q8 [facility] Stop: 04/10/20 22:01 Last Admin: 04/06/20 16:02 Dose: 12.5 mls/hr Documented by: Sodium Chloride () 250 mls @ 15 mls/hr IV .[id number] PRN PRN Reason: Saline Flush Sodium Chloride () 250 mls @ 15 mls/hr IV .[id number] PRN PRN Reason: Additional IVPB Infusion Linezolid (Zyvox 600mg) 600 mg in 300 mls @ 200 mls/hr IV Q12 [facility] Last Infusion: 04/06/20 13:00 Dose: Infused Documented by: Ibuprofen (Ibuprofen 600 Mg Tablet) 600 mg PO Q6H PRN PRN PRN Reason: Pain 1-10 or Fever Last Admin: 04/06/20 13:49 Dose: 600 mg Documented by: Loperamide HCl (Loperamide 2 Mg Capsule) 2 mg PO Q4H PRN PRN PRN Reason: LOOSE STOOLS Methocarbamol (Methocarbamol 750 Mg Tablet) 1,500 mg PO Q6H PRN PRN PRN Reason: MUSCLE SPASM Last Admin: 04/05/20 09:00 Dose: 1,500 mg Documented by: Nicotine (Nicotine 14 Mg Patch) 14 mg TRANSDERM. DAILY [facility] Last Admin: 04/06/20 09:30 Dose: 14 mg Documented by: Ondansetron HCl (Ondansetron 4 Mg/2 Ml Vial) 4 mg IV Q8H PRN PRN PRN Reason: NAUSEA/VOMITING Last Admin: 04/04/20 22:47 Dose: 4 mg Documented by: Polyethylene Glycol (Polyethylene Glycol 3350 17 Gm Packet) 17 gm PO DAILY [facility] Last Admin: 04/06/20 09:32 Dose: 17 gm Documented by: Prochlorperazine Edisylate (Prochlorperazine 10 Mg/2 Ml Vial) 10 mg IV Q6H PRN PRN PRN Reason: Nausea/Vomiting Sodium Chloride (0.9% Saline Lock 10 Ml Syringe) 10 - 40 ml IV UD PRN PRN Reason: SALINE FLUSH Last Admin: 04/06/20 16:02 Dose: 10 ml Documented by: Sodium Chloride (0.9% Saline Lock 10 Ml Syringe) 10 - 40 ml IV UD PRN PRN Reason: SALINE FLUSH Sodium Chloride (Sodium Chloride 0.65% 1 [place].Btl) 2 spray NASAL TID PRN PRN PRN Reason: NASAL DRYNESS Trazodone HCl (Trazodone 50 Mg Tablet) 50 mg PO QHS [facility] Last Admin: 04/05/20 20:40 Dose: Not Given Documented by: Clinical Impression(s) from Imaging Studies Chest X-Ray 04/06/20 05:16 IMPRESSION: Moderate to large partially loculated right pleural effusion. Bibasilar infiltrates. at 0629 Reported and signed by: Jacqueline Blanton MD Electronically Signed: Jacqueline Blanton MD at 6:29 EST Tel , Service support , Chest CTA 04/06/20 06:21 IMPRESSION: 1. Enlarging loculated right pleural effusion, possibly parapneumonic effusion or empyema. 2. Right lower lobe consolidation compatible with pneumonia. 3. Small left pleural effusion. 4. No pulmonary embolus detected. 5. Additional findings above. Individualized dose optimization techniques were used for this CT. at 0708 Reported and signed by: Jacqueline Blanton MD Electronically Signed: Jacqueline Blanton MD at 7:08 EST Tel , Service support , Thoracentesis Ultrasound 04/06/20 07:43 IMPRESSION: Ultrasound-guided right thoracentesis. Electronically Signed: Cole Banerjee, at 15:11 EST , Service support , Chest X-Ray 04/06/20 14:48 IMPRESSION: Status post right thoracentesis. There is no evidence of pneumothorax. Electronically Signed: Cole Banerjee, at 14:58 EST , Service support , Chest CT 04/06/20 15:23 IMPRESSION: Status post right thoracentesis with residual loculated pleural fluid and consolidation in the right lower lobe. Loculated effusion is seen in the right medial aspect of the right upper lobe. Electronically Signed: Cole Banerjee, at 16:04 EST , Service support , Assessment/Plan All Active Problems (Last Reviewed 04/03/20 @ 19:[address] Rachel Garcia, DO) Community acquired pneumonia (Acute) Sepsis (Acute) Leukocytosis (Acute) Hyponatremia (Acute) Empyema of pleural space (Acute) Cellulitis of left lower extremity without foot (Resolved) MRSA bacteremia (Resolved) RECOMMENDATIONS: 1. Continue empiric antibiotics 2. Transfer to tertiary center for fluid removal versus VATS 3. Wean oxygen as tolerated 4. Repeat echocardiogram to evaluate for endocarditis IMPRESSIONS: 1. Acute hypoxic respiratory insufficiency and severe sepsis secondary to right empyema Patient with loculations of right pleural effusion, very low glucose and high white blood cell count. Clinical suspicion for empyema. Repeat CAT scan following thoracentesis shows a loculated effusion tracking up next to mediastinal structures. Given empyema size and location, evaluation by cardiothoracic surgeon would be appropriate. Unclear if this would be able to be drained with a chest tube, but this would need to track medially and would run the risk of causing damage to mediastinal structures. Would defer to cardiothoracic surgery opinion. 2. Hepatitis C/IV drug use/acute opiate withdrawal/tobacco abuse Complicates care, management, recovery and prognosis. Patient does have a viral load for hepatitis C pending. Patient is on the protocol for opiate withdrawal. Nicotine patch is in place. Patient would benefit from outpatient pulmonary function test following the acute condition for quantification clarification of lung function. Inpatient E&M: 21424 Init Hosp L3
--- NOTE | 2020-04-06 17:04 | NURSING ---
AFTER AMBULATING TO [facility]
[2020-04-06 17:36] LABS: Appearance/Body Fluid CLOUDY; Auto B Fluid Analyzer BKGD Ct COUNTS W/IN LIMITS (W/IN LIMITS); Body Fluid Total Cells Counted 27.505 10^3/ul; Color/Body Fluid YELLOW
[2020-04-06 17:53] LABS: Body Fluid QC Type(s) BF2Q; Monocytes 2 %; Neutrophil (Segs) 98 %
--- NOTE | 2020-04-06 18:36 | PCM.HOSP.N ---
Hospitalist Note Thoracentesis done and 400 cc off but fluid is consistent with empyema. Repeat CT show persistent loculation of fluid. D/W pt need for evaluation by CT surgery for either CT placement or VATS. He would like to go to [facility]. Called the transfer line and they are arranging for transfer and will call back. PCU is faxing the face sheet and obtaining CD's of all 3 CT scans of his chest. D/W nursing.
[2020-04-06 19:08] LABS: Source- Body Fluid OTHER
[2020-04-07] VITALS (15 sets, daily range): BP systolic 113–127; BP diastolic 59–81; PULSE 96–137; RESP 16–22; TEMP 36.7–37.8; O2SAT 94–99
[2020-04-07] MEDS: Lidocaine 5% Patch 1 PATCH TOPICAL ×2 (01:47→09:20)
[2020-04-07] MEDS: Linezolid 600 MG 600 MG/300 ML BAG 200 MG IV ×2 (01:59→10:37)
[2020-04-07 06:10] LABS: Hematocrit 31.9 % (40-54); Hemoglobin 10.5 g/dL (13.0-16.5); Mean Corp Hgb Conc 32.9 g/dL (32-36); Mean Corpuscular Hgb 30.1 pg (27.0-32.0); Mean Corpuscular Volume 91.4 fL (80-94); Platelet Count 380 K/mm3 (150-450); RBC Distribution Width CV 12.8 % (11.6-14.6); RBC Distribution Width SD 42.5 fl (35.1-43.9); Red Blood Count 3.49 M/mm3 (4.6-6.2); White Blood Count 19.5 K/mm3 (4.4-11.0)
--- NOTE | 2020-04-07 07:44 | DS.PCM_ITS ---
Discharge Date and Diagnosis - Problem List Patient Problems: Active and Suspected Problems (Last Reviewed 04/03/20 @ 19:[address] Rachel Garcia DO) Community acquired pneumonia (Acute) Sepsis (Acute) Leukocytosis (Acute) Hyponatremia (Acute) Empyema of pleural space (Acute) Date of Admission: 04/03/20 Date of Discharge: 04/07/20 - Primary Discharge Diagnosis Acute Problems: Active Problems (Last Reviewed 04/03/20 @ 19:[address] Rachel Garcia DO) Acute sepsis secondary to acute hypoxic respiratory failure (required BIPAP) secondary to right-sided empyema Hepatitis C status Acute opiate withdrawal Polysubstance abuse with IV drug abuse Tobacco use Hx MRSA bacteremia - Secondary Discharge Diagnosis Chronic Problems: Chronic Problems (Last Reviewed 04/03/20 @ 19:[address] Rachel Garcia DO) IVDU (intravenous drug user) (Chronic) Hepatitis C (Chronic) Hospital Course and Treatment Operations: None Procedures: EKG, Thoracentesis Summary of Care Provided: The patient is a 39 y/o M w/ PMHx: IVDA, Hepatitis C, Tobacco use who presented to the [facility] ED On 04/03/20 with history of fever, cough and dyspnea as well as malaise and fatigue x24 hours with pleuritic right-sided chest pain concurrently with last IV drug abuse 1 to 2 days prior with IV fentanyl as well as methamphetamine although he admitted to using anything he is able to obtain. Work-up in the ED included T 100.6, heart 123, BP 120/82, respiratory rate 23, 95% on room air at that time, CBC with WBC 31.3 with left shift, unremarkable coags, CMP not marked appearing aside sodium 132, glucose 130, lactic acid 1.2, troponin less than 0.015, urinalysis not marked appearing, UDS with positive opiates and amphetamines, admitted to the PCU floor, maintain on telemetry, initially placed on vancomycin and Zyvox, blood culture x2 obtained and noted to be negative therefore echocardiogram deferred, urine antigens obtained and negative, Covid testing negative, HIV status checked and noted to be negative, pending hepatitis C viral load, initial CTA on 04/03/2020 obtained with noted no evidence of PE with atelectasis or infiltrate in the right lower lobe with bronchitis and small right pleural effusion at that time. Patient clinically worsened 04/06/2020 with increased respiratory rate and evidence of respiratory failure with initiation of BiPAP therapy with CTPA repeated at that time with noted enlarging loculated right pleural effusion possibly parapneumonic versus empyema, right lower lobe consolidation compatible with pneumonia, small left pleural effusion with no evidence of PE. Patient underwent thoracentesis with removal of 400 cc of fluid with evaluation consistent with emphysema. Patient transfer arranged for [facility] however no beds available therefore patient with ongoing [facility] care. Prior to transfer infectious disease and pulmonary consulted and continued evaluation of patient. Patient transition to Zosyn and maintained on Zyvox. Patient Problems: Active and Suspected Problems (Last Reviewed 04/03/20 @ 19:[address] Rachel pierce, DO) Community acquired pneumonia (Acute) Sepsis (Acute) Leukocytosis (Acute) Hyponatremia (Acute) Empyema of pleural space (Acute) - Physical Exam Vitals/I&O's: Vital Signs Temp Pulse Resp BP Pulse Ox 98.8 F 99 20 H 113/59 L 96 04/07/20 01:22 04/07/20 03:59 04/07/20 01:26 04/07/20 01:22 04/07/20 01:26 Oxygen Flow Rate (L/min) [3] 3 Oxygen Flow Rate (L/min) [2] 3 Oxygen Flow Rate (L/min) [1 ( 3 Initial Baseline)] Oxygen Flow Rate (L/min) 1 Oxygen Delivery Method [3] Nasal Cannula Oxygen Delivery Method [2] Nasal Cannula Oxygen Delivery Method [1 ( Nasal Cannula Initial Baseline)] Oxygen Delivery Method Nasal Cannula Weight: 119 lb 3.2 oz Body Mass Index (BMI) 19.2 Intake and Output for Last 24 Hours 04/05/20 04/06/20 04/07/20 23:59 23:59 23:59 Intake Total 1530 / 1830 1590 / 1840 950 / 950 Output Total 400 / 400 Balance 1530 / 1830 1190 / 1440 950 / 950 Microbiology Past 72 Hours 04/06/20 14:35 Fluid - Pleural (Lung) Gram Stain - Preliminary 04/03/20 16:25 Blood Culture (Wb) - Right Forearm Blood Culture - Preliminary No growth in 48 hours. 04/04/20 17:00 Urine, Clean Catch Urine Culture - Preliminary Culture exhibits no growth. 04/03/20 15:28 Blood Culture (Wb) - Left Wrist Blood Culture - Preliminary No growth in 48 hours. 04/03/20 15:28 Blood Culture (Wb) - Anticubital Right Blood Culture - Preliminary No growth in 48 hours. 04/04/20 02:40 Urine, Clean Catch Legionella Antigen - Final 04/04/20 02:40 Urine, Clean Catch Streptococcus pneumoniae Antigen (M - Final Laboratory Results 04/06/20 04:48: HIV 1&2 Antibody Non-Reactive 04/06/20 14:35: Fluid Glucose < 1 L*, Fluid Total Protein 3.4, Fluid LDH 989 04/06/20 14:35: Fluid Source OTHER, Fluid Color YELLOW, Fluid Appearance CLOUDY, Fluid WBC 27.440, Fluid RBC 0.006, Fluid Tot Cell Count 27.505, Fld Polynuclear WBCs # 25.469, Fld Polynuclear WBCs % 93.8, Fluid Mononuclear WBCs 1.685, Fld Mononuclear WBCs % 6.2, Fluid Neutrophils 98, Fluid Monocytes 2, Fl Pathologist Comment May follow, Fluid Comment 2 SEE COMMENT 04/07/20 05:25: WBC 19.5 H, RBC 3.49 L, Hgb 10.5 L, Hct 31.9 L, MCV 91.4, MCH 30.1, MCHC 32.9, RDW Std Deviation 42.5, RDW Coeff of Vaibhav 12.8, Plt Count 380, MPV 9.0 Current Medications Acetaminophen (Acetaminophen 325 Mg Tablet) 650 mg PO Q6H PRN PRN PRN Reason: Pain Score 1-10/Temp > 100.7 F Last Admin: 04/05/20 20:50 Dose: 650 mg Documented by: Al Hydroxide/Mg Hydroxide (Mag Hydrox/Al Hydrox/Simeth 30 Ml Udc) 30 ml PO Q6H PRN PRN PRN Reason: Gastric Burning Albuterol Sulfate (Albuterol 2.5 Mg/3 Ml Vial.Neb.) 2.5 mg INHALATION Q2H PRN PRN PRN Reason: Dyspnea, wheezing Albuterol/Ipratropium (Ipratropium/Albuterol Sulfate 3 Ml Ampul.Neb) 3 ml INHALATION Q4H.RT RUBY Last Admin: 04/06/20 23:39 Dose: 3 ml Documented by: Bisacodyl (Bisacodyl 5 Mg Tablet) 10 mg PO DAILY PRN PRN PRN Reason: Constipation Last Admin: 04/06/20 05:28 Dose: 10 mg Documented by: Buprenorphine HCl (Buprenorphine Hcl 2 Mg Tab.Subl) 2 mg SL Q12H [facility]; Taper Stop: 04/07/20 08:59 Last Admin: 04/06/20 22:05 Dose: 2 mg Documented by: Clonidine (Clonidine Hcl 0.1 Mg Tablet) 0.1 mg PO Q8H PRN PRN PRN Reason: RESTLESSNESS Last Admin: 04/06/20 05:28 Dose: 0.1 mg Documented by: Dicyclomine HCl (Dicyclomine 10 Mg Capsule) 20 mg PO Q6H PRN PRN PRN Reason: Abdominal Discomfort Last Admin: 04/05/20 16:02 Dose: 20 mg Documented by: Docusate Sodium (Docusate Sodium 100 Mg Capsule) 200 mg PO BID PRN PRN PRN Reason: Constipation Last Admin: 04/05/20 11:19 Dose: 200 mg Documented by: Enoxaparin Sodium (Enoxaparin 40 Mg/0.4 Ml Syringe) 40 mg SC DAILY [facility] Last Admin: 04/06/20 15:10 Dose: 40 mg Documented by: Gabapentin (Gabapentin 300 Mg Capsule) 300 mg PO Q8H PRN PRN PRN Reason: moderate to severe anxiety Last Admin: 04/05/20 16:02 Dose: 300 mg Documented by: Guaifenesin (Guaifenesin 1,200 Mg Tablet) 1,200 mg PO BID [facility] Last Admin: 04/06/20 22:03 Dose: 1,200 mg Documented by: Hydroxyzine Pamoate (Hydroxyzine Karla 25 Mg Capsule) 50 mg PO Q6H PRN PRN PRN Reason: mild anxiety Last Admin: 04/06/20 23:59 Dose: 50 mg Documented by: Piperacillin Sod/Tazobactam (Sod 3.375 gm/ Sodium Chloride) 50 mls @ 12.5 mls/hr IV Q8 RUBY Stop: 04/10/20 22:01 Last Admin: 04/07/20 05:36 Dose: 12.5 mls/hr Documented by: Sodium Chloride () 250 mls @ 15 mls/hr IV .[id number] PRN PRN Reason: Saline Flush Sodium Chloride () 250 mls @ 15 mls/hr IV .[id number] PRN PRN Reason: Additional IVPB Infusion Linezolid (Zyvox 600mg) 600 mg in 300 mls @ 200 mls/hr IV Q12 [facility] Last Infusion: 04/07/20 03:29 Dose: Infused Documented by: Ibuprofen (Ibuprofen 600 Mg Tablet) 600 mg PO Q6H PRN PRN PRN Reason: Pain 1-10 or Fever Last Admin: 04/06/20 23:59 Dose: 600 mg Documented by: Lidocaine (Lidocaine 5% Patch) 1 patch TOPICAL DAILY [facility]; Protocol Last Admin: 04/07/20 01:47 Dose: 1 patch Documented by: Loperamide HCl (Loperamide 2 Mg Capsule) 2 mg PO Q4H PRN PRN PRN Reason: LOOSE STOOLS Methocarbamol (Methocarbamol 750 Mg Tablet) 1,500 mg PO Q6H PRN PRN PRN Reason: MUSCLE SPASM Last Admin: 04/05/20 09:00 Dose: 1,500 mg Documented by: Nicotine (Nicotine 14 Mg Patch) 14 mg TRANSDERM. DAILY [facility] Last Admin: 04/06/20 09:30 Dose: 14 mg Documented by: Ondansetron HCl (Ondansetron 4 Mg/2 Ml Vial) 4 mg IV Q8H PRN PRN PRN Reason: NAUSEA/VOMITING Last Admin: 04/04/20 22:47 Dose: 4 mg Documented by: Polyethylene Glycol (Polyethylene Glycol 3350 17 Gm Packet) 17 gm PO DAILY [facility] Last Admin: 04/06/20 09:32 Dose: 17 gm Documented by: Prochlorperazine Edisylate (Prochlorperazine 10 Mg/2 Ml Vial) 10 mg IV Q6H PRN PRN PRN Reason: Nausea/Vomiting Sodium Chloride (0.9% Saline Lock 10 Ml Syringe) 10 - 40 ml IV UD PRN PRN Reason: SALINE FLUSH Last Admin: 04/06/20 16:02 Dose: 10 ml Documented by: Sodium Chloride (0.9% Saline Lock 10 Ml Syringe) 10 - 40 ml IV UD PRN PRN Reason: SALINE FLUSH Sodium Chloride (Sodium Chloride 0.65% 1 [place].Btl) 2 spray NASAL TID PRN PRN PRN Reason: NASAL DRYNESS Trazodone HCl (Trazodone 50 Mg Tablet) 50 mg PO QHS [facility] Last Admin: 04/06/20 22:03 Dose: Not Given Documented by: Home Medications: Medications to take at Discharge NK 04/03/20 Primary Care Physician: Care Physician,No Primary [Primary Care Provider] - Disposition: Acute care Hospital Minutes spent on discharge:: 35 Patient Condition:: Fair Medical Necessity - Tobacco Use Smoking Status: Heavy Smoker (>10/day) Tobacco Use: Cigarettes Meaningful Use Info Meaningful Use Diagnoses (Choose all that apply): None applicable Inpatient E&M: 32797 Disch Hosp
--- NOTE | 2020-04-07 09:00 | NURSING ---
dr sands in room to see. pt reporting having diff taking deep breaths from pain and numbness to fingers and arms rt>lt. c/o cant breathe but o2 on at 1l and sats 99%. attempted to explain that because was off heroin narcotics not recommended and pt became belligerant and stated, i didnt come in here for withdrawals!!! tylenol and fucking motrin are not going to help! when confronted that pt had slept after field insurance sales manager applied lidoderm patch became angrier and said fuck you! you know what? im gonna call somebody charge weigher aware and texted dr. vaughan for orders and dr. sands aware.
--- NOTE | 2020-04-07 09:01 | PCM.PN.PUL ---
Patient Problems: Active and Suspected Problems (Last Reviewed 04/03/20 @ 19:[address] Rachel Garcia, DO) Community acquired pneumonia (Acute) Sepsis (Acute) Leukocytosis (Acute) Hyponatremia (Acute) Empyema of pleural space (Acute) Subjective: Patient did okay overnight and was able to sleep. However, patient reports he woke up this morning feeling more short of breath and having [id number] of bilateral hands. Patient states he is developing some chest pain and is getting belligerent with staff over the lack of narcotics. Patient is currently on hold for transfer to [facility] pending bed availability. - Physical Exam Vitals/I&O's: Vital Signs Temp Pulse Resp BP Pulse Ox 36.7 C 106 H 18 127/81 H 97 04/07/20 08:59 04/07/20 08:59 04/07/20 08:59 04/07/20 08:59 04/07/20 08:59 Oxygen Flow Rate (L/min) [3] 3 Oxygen Flow Rate (L/min) [2] 3 Oxygen Flow Rate (L/min) [1 ( 3 Initial Baseline)] Oxygen Flow Rate (L/min) 1 Oxygen Delivery Method [3] Nasal Cannula Oxygen Delivery Method [2] Nasal Cannula Oxygen Delivery Method [1 ( Nasal Cannula Initial Baseline)] Oxygen Delivery Method Room Air Weight: 54.068 kg Body Mass Index (BMI) 19.2 Intake and Output for Last 24 Hours 04/05/20 04/06/20 04/07/20 23:59 23:59 23:59 Intake Total 1530 / 1830 1590 / 1840 950 / 950 Output Total 400 / 400 Balance 1530 / 1830 1190 / 1440 950 / 950 General: Alert, Oriented x3, Cooperative - Intermittently, - - Mild to moderate discomfort. Thin build. Frail. HEENT: Atraumatic, PERRLA, EOMI, Normocephalic, - - Scleral injection without icterus Oral: Moist Mucosa, No Gingival or Mucosal Lesions/ Ulcerations Neck: Supple, No JVD, No Nodes, Trachea Midline Lungs: No rhonchi, No rales, Diminished - Dullness to percussion on the right, Wheezes - Sporadic Cardiovascular: Normal S1, Normal S2, No murmurs, No rub noted, No Gallop, Tachycardic Abdomen: Bowel Sounds Present, Soft, Non Tender, Non-Distended Extremities: No clubbing, No cyanosis, No edema, - - No splinter hemorrhages appreciated Skin: - - Multiple punctate ulcerations noted. No change from previous. Musculoskeletal: - - Worsening [id number] with palpation, but no pain or withdrawal Lymphatic: Cervical Adenopathy Neurological: Cranial nerves II-XII grossly intact, Neuro grossly intact, Motor Exam 5/5 strength throughout Psych/Mental Status: Agitated, Anxious, Restless Microbiology Past 72 Hours 04/04/20 17:00 Urine, Clean Catch Urine Culture - Final Culture exhibits no growth. 04/06/20 14:35 Fluid - Pleural (Lung) Gram Stain - Preliminary 04/03/20 16:25 Blood Culture (Wb) - Right Forearm Blood Culture - Preliminary No growth in 48 hours. 04/03/20 15:28 Blood Culture (Wb) - Left Wrist Blood Culture - Preliminary No growth in 48 hours. 04/03/20 15:28 Blood Culture (Wb) - Anticubital Right Blood Culture - Preliminary No growth in 48 hours. Laboratory Results 04/06/20 04:48: HIV 1&2 Antibody Non-Reactive 04/06/20 14:35: Fluid Glucose < 1 L*, Fluid Total Protein 3.4, Fluid LDH 989 04/06/20 14:35: Fluid Source OTHER, Fluid Color YELLOW, Fluid Appearance CLOUDY, Fluid WBC 27.440, Fluid RBC 0.006, Fluid Tot Cell Count 27.505, Fld Polynuclear WBCs # 25.469, Fld Polynuclear WBCs % 93.8, Fluid Mononuclear WBCs 1.685, Fld Mononuclear WBCs % 6.2, Fluid Neutrophils 98, Fluid Monocytes 2, Fl Pathologist Comment May follow, Fluid Comment 2 SEE COMMENT 04/07/20 05:25: WBC 19.5 H, RBC 3.49 L, Hgb 10.5 L, Hct 31.9 L, MCV 91.4, MCH 30.1, MCHC 32.9, RDW Std Deviation 42.5, RDW Coeff of Vaibhav 12.8, Plt Count 380, MPV 9.0 Current Medications Acetaminophen (Acetaminophen 325 Mg Tablet) 650 mg PO Q6H PRN PRN PRN Reason: Pain Score 1-10/Temp > 100.7 F Last Admin: 04/05/20 20:50 Dose: 650 mg Documented by: Al Hydroxide/Mg Hydroxide (Mag Hydrox/Al Hydrox/Simeth 30 Ml Udc) 30 ml PO Q6H PRN PRN PRN Reason: Gastric Burning Albuterol Sulfate (Albuterol 2.5 Mg/3 Ml Vial.Neb.) 2.5 mg INHALATION Q2H PRN PRN PRN Reason: Dyspnea, wheezing Albuterol/Ipratropium (Ipratropium/Albuterol Sulfate 3 Ml Ampul.Neb) 3 ml INHALATION Q4H.RT [facility] Last Admin: 04/06/20 23:39 Dose: 3 ml Documented by: Bisacodyl (Bisacodyl 5 Mg Tablet) 10 mg PO DAILY PRN PRN PRN Reason: Constipation Last Admin: 04/06/20 05:28 Dose: 10 mg Documented by: Clonidine (Clonidine Hcl 0.1 Mg Tablet) 0.1 mg PO Q8H PRN PRN PRN Reason: RESTLESSNESS Last Admin: 04/06/20 05:28 Dose: 0.1 mg Documented by: Dicyclomine HCl (Dicyclomine 10 Mg Capsule) 20 mg PO Q6H PRN PRN PRN Reason: Abdominal Discomfort Last Admin: 04/05/20 16:02 Dose: 20 mg Documented by: Docusate Sodium (Docusate Sodium 100 Mg Capsule) 200 mg PO BID PRN PRN PRN Reason: Constipation Last Admin: 04/05/20 11:19 Dose: 200 mg Documented by: Enoxaparin Sodium (Enoxaparin 40 Mg/0.4 Ml Syringe) 40 mg SC DAILY [facility] Last Admin: 04/06/20 15:10 Dose: 40 mg Documented by: Gabapentin (Gabapentin 300 Mg Capsule) 300 mg PO Q8H PRN PRN PRN Reason: moderate to severe anxiety Last Admin: 04/05/20 16:02 Dose: 300 mg Documented by: Guaifenesin (Guaifenesin 1,200 Mg Tablet) 1,200 mg PO BID [facility] Last Admin: 04/06/20 22:03 Dose: 1,200 mg Documented by: Hydroxyzine Pamoate (Hydroxyzine Karla 25 Mg Capsule) 50 mg PO Q6H PRN PRN PRN Reason: mild anxiety Last Admin: 04/06/20 23:59 Dose: 50 mg Documented by: Piperacillin Sod/Tazobactam (Sod 3.375 gm/ Sodium Chloride) 50 mls @ 12.5 mls/hr IV Q8 [facility] Stop: 04/10/20 22:01 Last Admin: 04/07/20 05:36 Dose: 12.5 mls/hr Documented by: Sodium Chloride () 250 mls @ 15 mls/hr IV .[id number] PRN PRN Reason: Saline Flush Sodium Chloride () 250 mls @ 15 mls/hr IV .[id number] PRN PRN Reason: Additional IVPB Infusion Linezolid (Zyvox 600mg) 600 mg in 300 mls @ 200 mls/hr IV Q12 [facility] Last Infusion: 04/07/20 03:29 Dose: Infused Documented by: Ibuprofen (Ibuprofen 600 Mg Tablet) 600 mg PO Q6H PRN PRN PRN Reason: Pain 1-10 or Fever Last Admin: 04/06/20 23:59 Dose: 600 mg Documented by: Lidocaine (Lidocaine 5% Patch) 1 patch TOPICAL DAILY [facility]; Protocol Last Admin: 04/07/20 01:47 Dose: 1 patch Documented by: Loperamide HCl (Loperamide 2 Mg Capsule) 2 mg PO Q4H PRN PRN PRN Reason: LOOSE STOOLS Methocarbamol (Methocarbamol 750 Mg Tablet) 1,500 mg PO Q6H PRN PRN PRN Reason: MUSCLE SPASM Last Admin: 04/05/20 09:00 Dose: 1,500 mg Documented by: Nicotine (Nicotine 14 Mg Patch) 14 mg TRANSDERM. DAILY [facility] Last Admin: 04/06/20 09:30 Dose: 14 mg Documented by: Ondansetron HCl (Ondansetron 4 Mg/2 Ml Vial) 4 mg IV Q8H PRN PRN PRN Reason: NAUSEA/VOMITING Last Admin: 04/04/20 22:47 Dose: 4 mg Documented by: Polyethylene Glycol (Polyethylene Glycol 3350 17 Gm Packet) 17 gm PO DAILY [facility] Last Admin: 04/06/20 09:32 Dose: 17 gm Documented by: Prochlorperazine Edisylate (Prochlorperazine 10 Mg/2 Ml Vial) 10 mg IV Q6H PRN PRN PRN Reason: Nausea/Vomiting Sodium Chloride (0.9% Saline Lock 10 Ml Syringe) 10 - 40 ml IV UD PRN PRN Reason: SALINE FLUSH Last Admin: 04/06/20 16:02 Dose: 10 ml Documented by: Sodium Chloride (0.9% Saline Lock 10 Ml Syringe) 10 - 40 ml IV UD PRN PRN Reason: SALINE FLUSH Sodium Chloride (Sodium Chloride 0.65% 1 [place].Btl) 2 spray NASAL TID PRN PRN PRN Reason: NASAL DRYNESS Trazodone HCl (Trazodone 50 Mg Tablet) 50 mg PO QHS [facility] Last Admin: 04/06/20 22:03 Dose: Not Given Documented by: Clinical Impression(s) from Imaging Studies Thoracentesis Ultrasound 04/06/20 07:43 IMPRESSION: Ultrasound-guided right thoracentesis. Electronically Signed: Cole Banerjee, at 15:11 EST , Service support , Chest X-Ray 04/06/20 14:48 IMPRESSION: Status post right thoracentesis. There is no evidence of pneumothorax. Electronically Signed: Cole Banerjee, at 14:58 EST , Service support , Chest CT 04/06/20 15:23 IMPRESSION: Status post right thoracentesis with residual loculated pleural fluid and consolidation in the right lower lobe. Loculated effusion is seen in the right medial aspect of the right upper lobe. Electronically Signed: Cole Banerjee at 16:04 EST , Service support , Medical Necessity - Tobacco Use Smoking Status: Heavy Smoker (>10/day) Tobacco Use: Cigarettes Assessment/Plan All Active Problems (Last Reviewed 04/03/20 @ 19:[address] Rachel Garcia, DO) Community acquired pneumonia (Acute) Sepsis (Acute) Leukocytosis (Acute) Hyponatremia (Acute) Empyema of pleural space (Acute) Cellulitis of left lower extremity without foot (Resolved) MRSA bacteremia (Resolved) RECOMMENDATIONS: 1. Continue empiric antibiotics pending transfer 2. Transfer to tertiary center for fluid removal versus VATS 3. Wean oxygen as tolerated 4. Repeat echocardiogram to evaluate for endocarditis 5. Could evaluate with chest x-ray if transfer is going to be delayed IMPRESSIONS: 1. Acute hypoxic respiratory insufficiency and severe sepsis secondary to right empyema Patient with loculations of right pleural effusion, very low glucose and high white blood cell count. Clinical suspicion for empyema. Repeat CAT scan following thoracentesis shows a loculated effusion tracking up next to mediastinal structures. Given empyema size and location, evaluation by cardiothoracic surgeon would be appropriate. Patient is currently pending transfer to [facility] for CT surgery evaluation. Clinical suspicion for paresthesia of the hand secondary to body position and irritation associated with empyema. If transfer is going to be significantly delayed, repeat chest x-ray could be obtained. If significantly worse, could attempt a repeat thoracentesis for some drainage. However, patient is currently tolerating 1 L nasal cannula to maintain saturations. 2. Hepatitis C/IV drug use/acute opiate withdrawal/tobacco abuse Complicates care, management, recovery and prognosis. Patient does have a viral load for hepatitis C pending. Patient is on the protocol for opiate withdrawal. Nicotine patch is in place. Patient would benefit from outpatient pulmonary function test following the acute condition for quantification clarification of lung function. Patient is becoming more belligerent with staff. Defer to hospitalist on the use of narcotics. Inpatient E&M: [id number] [facility] L3
[2020-04-07] MEDS: Acetaminophen 500 MG Tablet 1000 MG PO (09:19)
[2020-04-07] MEDS: guaiFENesin 1,200 MG Tablet 1200 MG PO (09:20)
[2020-04-07] MEDS: Gabapentin 300 MG Capsule PO (09:20)
[2020-04-07] MEDS: Polyethylene Glycol 3350 17 GM PACKET PO (09:21)
--- NOTE | 2020-04-07 09:38 | NURSING ---
0900-set up and charger in and pt calmed down. told that was waiting on medical to write for something stronger. pt appologized to this rn. new orders for analgesics per dr. vaughna
[2020-04-07] MEDS: HYDROmorphone 0.5 MG/0.5 ML SYRINGE IV ×3 (09:48→20:46)
[2020-04-07 09:52] LABS: Pathologist Review Reviewed
[2020-04-07 09:57] LABS: Pathologist Review Reviewed
[2020-04-07] MEDS: Ipratropium/Albuterol Sulfate 3 ML AMPUL.NEB INHALATION ×3 (10:57→19:03)
[2020-04-07] MEDS: oxyCODONE 5 MG Tablet PO ×2 (12:50→18:03)
[2020-04-07 13:57] LABS: Pathologist Comment/Body Fluid Reviewed
--- NOTE | 2020-04-07 16:06 | PN_ITS ---
Patient Problems: Active and Suspected Problems (Last Reviewed 04/03/20 @ 19:[address] Rachel Garcia, DO) Community acquired pneumonia (Acute) Sepsis (Acute) Leukocytosis (Acute) Hyponatremia (Acute) Empyema of pleural space (Acute) Subjective: Patient overnight with no acute events per self and per nursing report. He initially noted breathing is improved and lessen coughing. He noted right-sided pleuritic pain and also lessened however later in the morning he became very aggressive and angry at staff secondary to onset of acute pain. Patient's pain did lessen and improved with initiation of oral and IV narcotic regimen. Patient denies fevers, chills, nausea, emesis, abdominal pain. Objective: Physical Examination: General: awake, alert, oriented x 3 and cooperative, seated upright in the PCU bed in no apparent distress at that time. Skin: normal color, turgor, no icterus, cyanosis except noted track soria. HEENT: AT/NC, EOMI, PERRLA, MMM. Lungs: Diminished breath sounds, dullness to percussion right side lower to mid, improved effort from prior evaluation, occasional end expiratory wheeze otherwise no rales or rhonchi. Heart: Regular rate and rhythm; no gallop, rub audible. Abdomen: soft, thin habitus, NTTP, ND, normal BS. Extremities: no cyanosis, clubbing, or edema. Neurological: patient awake, alert, oriented x 3; cognitive function intact; pupils equally reactive to light and accomodation; cranial nerves II-XII grossly normal, moving all 4 extremities, no focal deficits, strength moderately global decreased secondary to acute complaints. Psychiatric: affect appears currently normal, no acute evidence of depressive or anxiety feelings. Vitals/I&O's: Vital Signs Temp Pulse Resp BP Pulse Ox 98.5 F 103 H 21 H 124/72 H 98 04/07/20 14:00 04/07/20 14:18 04/07/20 14:18 04/07/20 14:00 04/07/20 14:00 Oxygen Flow Rate (L/min) [3] 3 Oxygen Flow Rate (L/min) [2] 3 Oxygen Flow Rate (L/min) [1 ( 3 Initial Baseline)] Oxygen Flow Rate (L/min) 1 Oxygen Delivery Method [3] Nasal Cannula Oxygen Delivery Method [2] Nasal Cannula Oxygen Delivery Method [1 ( Nasal Cannula Initial Baseline)] Oxygen Delivery Method Nasal Cannula Weight: 119 lb 3.2 oz Body Mass Index (BMI) 19.2 Intake and Output for Last 24 Hours 04/05/20 04/06/20 04/07/20 23:59 23:59 23:59 Intake Total 1530 / 1830 1590 / 1840 1880 / 1880 Output Total 400 / 400 Balance 1530 / 1830 1190 / 1440 1880 / 1880 Microbiology Past 72 Hours 04/06/20 14:35 Fluid - Pleural (Lung) Gram Stain - Final 04/06/20 14:35 Fluid - Pleural (Lung) Body Fluid Culture - Preliminary No growth-Final to follow 04/04/20 17:00 Urine, Clean Catch Urine Culture - Final Culture exhibits no growth. 04/03/20 16:25 Blood Culture (Wb) - Right Forearm Blood Culture - Preliminary No growth in 48 hours. 04/03/20 15:28 Blood Culture (Wb) - Left Wrist Blood Culture - Preliminary No growth in 48 hours. 04/03/20 15:28 Blood Culture (Wb) - Anticubital Right Blood Culture - Preliminary No growth in 48 hours. Laboratory Results 04/03/20 15:28: Diff Path Review Reviewed 04/04/20 07:56: Diff Path Review Reviewed 04/06/20 14:35: Fluid Glucose < 1 L*, Fluid Total Protein 3.4, Fluid LDH 989 04/06/20 14:35: Fluid Source OTHER, Fluid Color YELLOW, Fluid Appearance CLOUDY, Fluid WBC 27.440, Fluid RBC 0.006, Fluid Tot Cell Count 27.505, Fld Polynuclear WBCs # 25.469, Fld Polynuclear WBCs % 93.8, Fluid Mononuclear WBCs 1.685, Fld Mononuclear WBCs % 6.2, Fluid Neutrophils 98, Fluid Monocytes 2, Fl Pathologist Comment Reviewed, Fluid Comment 2 SEE COMMENT 04/07/20 05:25: WBC 19.5 H, RBC 3.49 L, Hgb 10.5 L, Hct 31.9 L, MCV 91.4, MCH 30.1, MCHC 32.9, RDW Std Deviation 42.5, RDW Coeff of Vaibhav 12.8, Plt Count 380, MPV 9.0 Current Medications Acetaminophen (Acetaminophen 325 Mg Tablet) 650 mg PO Q6H PRN PRN PRN Reason: Pain Score 1-10/Temp > 100.7 F Last Admin: 04/05/20 20:50 Dose: 650 mg Documented by: Al Hydroxide/Mg Hydroxide (Mag Hydrox/Al Hydrox/Simeth 30 Ml Udc) 30 ml PO Q6H PRN PRN PRN Reason: Gastric Burning Albuterol Sulfate (Albuterol 2.5 Mg/3 Ml Vial.Neb.) 2.5 mg INHALATION Q2H PRN PRN PRN Reason: Dyspnea, wheezing Albuterol/Ipratropium (Ipratropium/Albuterol Sulfate 3 Ml Ampul.Neb) 3 ml INHALATION Q4H.RT [facility] Last Admin: 04/07/20 14:18 Dose: 3 ml Documented by: Bisacodyl (Bisacodyl 5 Mg Tablet) 10 mg PO DAILY PRN PRN PRN Reason: Constipation Last Admin: 04/06/20 05:28 Dose: 10 mg Documented by: Clonidine (Clonidine Hcl 0.1 Mg Tablet) 0.1 mg PO Q8H PRN PRN PRN Reason: RESTLESSNESS Last Admin: 04/06/20 05:28 Dose: 0.1 mg Documented by: Dicyclomine HCl (Dicyclomine 10 Mg Capsule) 20 mg PO Q6H PRN PRN PRN Reason: Abdominal Discomfort Last Admin: 04/05/20 16:02 Dose: 20 mg Documented by: Docusate Sodium (Docusate Sodium 100 Mg Capsule) 200 mg PO BID PRN PRN PRN Reason: Constipation Last Admin: 04/05/20 11:19 Dose: 200 mg Documented by: Enoxaparin Sodium (Enoxaparin 40 Mg/0.4 Ml Syringe) 40 mg SC DAILY [facility] Last Admin: 04/06/20 15:10 Dose: 40 mg Documented by: Gabapentin (Gabapentin 300 Mg Capsule) 300 mg PO Q8H PRN PRN PRN Reason: moderate to severe anxiety Last Admin: 04/07/20 09:20 Dose: 300 mg Documented by: Guaifenesin (Guaifenesin 1,200 Mg Tablet) 1,200 mg PO BID [facility] Last Admin: 04/07/20 09:20 Dose: 1,200 mg Documented by: Hydromorphone HCl (Hydromorphone 0.5 Mg/0.5 Ml Syringe) 0.5 mg IV Q4H PRN PRN PRN Reason: Pain Score 6-10 Last Admin: 04/07/20 14:29 Dose: 0.5 mg Documented by: Hydroxyzine Pamoate (Hydroxyzine Karla 25 Mg Capsule) 50 mg PO Q6H PRN PRN PRN Reason: mild anxiety Last Admin: 04/06/20 23:59 Dose: 50 mg Documented by: Piperacillin Sod/Tazobactam (Sod 3.375 gm/ Sodium Chloride) 50 mls @ 12.5 mls/hr IV Q8 RUBY Stop: 04/10/20 22:01 Last Admin: 04/07/20 14:37 Dose: 12.5 mls/hr Documented by: Sodium Chloride () 250 mls @ 15 mls/hr IV .[id number] PRN PRN Reason: Saline Flush Sodium Chloride () 250 mls @ 15 mls/hr IV .[id number] PRN PRN Reason: Additional IVPB Infusion Linezolid (Zyvox 600mg) 600 mg in 300 mls @ 200 mls/hr IV Q12 [facility] Last Infusion: 04/07/20 15:12 Dose: Infused Documented by: Ibuprofen (Ibuprofen 600 Mg Tablet) 600 mg PO Q6H PRN PRN PRN Reason: Pain 1-10 or Fever Last Admin: 04/06/20 23:59 Dose: 600 mg Documented by: Lidocaine (Lidocaine 5% Patch) 1 patch TOPICAL DAILY [facility]; Protocol Last Admin: 04/07/20 09:20 Dose: 1 patch Documented by: Loperamide HCl (Loperamide 2 Mg Capsule) 2 mg PO Q4H PRN PRN PRN Reason: LOOSE STOOLS Methocarbamol (Methocarbamol 750 Mg Tablet) 1,500 mg PO Q6H PRN PRN PRN Reason: MUSCLE SPASM Last Admin: 04/05/20 09:00 Dose: 1,500 mg Documented by: Nicotine (Nicotine 14 Mg Patch) 14 mg TRANSDERM. DAILY [facility]BY Last Admin: 04/07/20 09:21 Dose: 14 mg Documented by: Ondansetron HCl (Ondansetron 4 Mg/2 Ml Vial) 4 mg IV Q8H PRN PRN PRN Reason: NAUSEA/VOMITING Last Admin: 04/04/20 22:47 Dose: 4 mg Documented by: Oxycodone HCl (Oxycodone 5 Mg Tablet) 5 - 10 mg PO Q4H PRN PRN PRN Reason: Pain Score 4-10 Last Admin: 04/07/20 12:50 Dose: 5 mg Documented by: Polyethylene Glycol (Polyethylene Glycol 3350 17 Gm Packet) 17 gm PO DAILY [facility] Last Admin: 04/07/20 09:21 Dose: 17 gm Documented by: Prochlorperazine Edisylate (Prochlorperazine 10 Mg/2 Ml Vial) 10 mg IV Q6H PRN PRN PRN Reason: Nausea/Vomiting Sodium Chloride (0.9% Saline Lock 10 Ml Syringe) 10 - 40 ml IV UD PRN PRN Reason: SALINE FLUSH Last Admin: 04/06/20 16:02 Dose: 10 ml Documented by: Sodium Chloride (0.9% Saline Lock 10 Ml Syringe) 10 - 40 ml IV UD PRN PRN Reason: SALINE FLUSH Sodium Chloride (Sodium Chloride 0.65% 1 [place].Btl) 2 spray NASAL TID PRN PRN PRN Reason: NASAL DRYNESS Trazodone HCl (Trazodone 50 Mg Tablet) 50 mg PO QHS [facility] Last Admin: 04/06/20 22:03 Dose: Not Given Documented by: STROKE Vital Signs/Narrative: Vital Signs Temp Pulse Resp BP Pulse Ox 04/07/20 14:18 103 H 21 H 04/07/20 14:00 98.5 F 115 H 18 124/72 H 98 Medical Necessity - Tobacco Use Smoking Status: Heavy Smoker (>10/day) Tobacco Use: Cigarettes Assessment/Plan All Active Problems (Last Reviewed 04/03/20 @ 19:[address] Rachel Garcia, DO) Community acquired pneumonia (Acute) Sepsis (Acute) Leukocytosis (Acute) Hyponatremia (Acute) Empyema of pleural space (Acute) Cellulitis of left lower extremity without foot (Resolved) MRSA bacteremia (Resolved) The patient is a 39 y/o M w/ PMHx: IVDA, Hepatitis C, Tobacco use who presented to the [facility] ED On 04/03/20 with history of fever, cough and dyspnea as well as malaise and fatigue x24 hours with pleuritic right-sided chest pain concurrently with last IV drug abuse 1 to 2 days prior with IV fentanyl as well as methamphetamine although he admitted to using anything he is able to obtain. 1. Acute Severe Sepsis secondary to Acute Hypoxic Respiratory Failure secondary to RLL PNA and effusion eventual coalescing into an empyema: Work-up in the ED included T 100.6, heart 123, BP 120/82, respiratory rate 23, 95% on room air at that time, CBC with WBC 31.3 with left shift, unremarkable coags, CMP not marked appearing aside sodium 132, glucose 130, lactic acid 1.2, troponin less than 0.015, urinalysis not marked appearing, UDS with positive opiates and a mphetamines, admitted to the PCU floor, maintain on telemetry, initially placed on vancomycin and Zyvox, blood culture x2 obtained and noted to be negative therefore echocardiogram deferred, urine antigens obtained and negative, Covid testing negative, HIV status checked and noted to be negative, pending hepatitis C viral load, initial CTA on 04/03/2020 obtained with noted no evidence of PE with atelectasis or infiltrate in the right lower lobe with bronchitis and small right pleural effusion at that time. Patient clinically worsened 04/06/2020 with increased respiratory rate and evidence of respiratory failure with initiation of BiPAP therapy with CTPA repeated at that time with noted enlarging loculated right pleural effusion possibly parapneumonic versus empyema, right lower lobe consolidation compatible with pneumonia, small left pleural effusion with no evidence of PE. Patient underwent thoracentesis with removal of 400 cc of fluid with evaluation consistent with emphysema. Continued on Zosyn and Zyvox. Awaiting transfer to [place], no beds currently available. Will need to be considered for VATS. Pulmonary and infectious disease consulted. 2. Chronic hepatitis C: Unclear if patient is a carrier, viral load requested, LFTs within normal upon initial presentation, infectious disease has been consulted for #1 given no beds available at tertiary facility and unclear t imeline at [facility] [place] prior to evaluation per cardiothoracic surgery. HIV negative. 3. Acute opiate withdrawal: Patient initially admitted and treated for withdrawal with opiate withdrawal protocol with Subutex with plan to 180 follow- up however given worsened appearance and thoracentesis with empyema initiated oral and IV narcotic therapy as patient with appropriate reason for acute pain treatment. Given patient chronic pain and abuse history may need increased regimen. 4. Polysubstance Abuse, IVDA Hx, History of Hepatitis C, Chronic: Patient currently not candidate for hep C treatment currently as needs to be clean, sober x 6 months, documented attendance NA or AA meetings, counseling and ongoing negative drug screens. Hepatitis C viral load, HIV negative. 5. Tobacco Abuse: Encouraged cessation, inpatient consultation per RT, NR if desired. 6. DVT prophylaxis: SCDs, Lovenox. Inpatient E&M: 91090 Subs Hosp L2
--- NOTE | 2020-04-07 17:24 | NURSING ---
Inquired on bed at [facility]. No beds available at this time.
[2020-04-07] MEDS: Bisacodyl 5 MG Tablet 10 MG PO (17:59)
--- NOTE | 2020-04-07 18:28 | NURSING ---
report called to [facility] 1 central bed [phone] Called to Rossi Lambert RN
[2020-04-07] MEDS: proCHLORPERazine 10 MG/2 ML Vial IV (19:34)
[2020-04-07] MEDS: cloNIDine HCl 0.1 MG Tablet PO (19:34)
[2020-04-07] MEDS: 0.9% Saline Lock 10 ML Syringe IV ×2 (19:35→20:46)
--- NOTE | 2020-04-07 19:55 | CPS ---
pt nauseated nurse aware
[2020-04-07] MEDS: Acetaminophen 325 MG Tablet 650 MG PO (20:39)
[2020-04-07 22:21] LABS: HCV Quant. RNA PCR <15 IU/mL (.)
[2020-04-07 22:21] LABS: Color, Urine Yellow (Yellow); Glucose, Dipstick Normal (Normal); Ketone-Dipstick Negative (Negative); Leukocyte Esterase-Dipstick Negative /ul (Negative); Mucous, Urine 0 SEEN /hpf (<or=2+); Nitrite-Dipstick Negative (Negative); Occult Blood-Urine Negative /ul (Negative); Protein-Dipstick 30 mg/dl (Negative); Red Blood Cells-Urine 0 SEEN /hpf (0-5); Specific Gravity, Urine 1.015 (1.002-1.030); Squamous Epithelial Cells - UA 0 SEEN /hpf (0-5); Urine Bilirubin Dipstick Negative (Negative); Urine Clarity Clear (Clear); Urine Urobilinogen Normal (Normal); White Blood Cells 0 SEEN /hpf (0-5)
[2020-04-07 22:39] LABS: Bacteria RARE /hpf (None Seen)
== END 2020-04-07 20:52 | disposition short-term general hospital (02) | DRG 720 ==
LOC: ED 18:10 → PCU 19:21
PROVIDERS: Nurse Practitioner Family; Admitting Provider Internal Medicine; Emergency Provider Emergency Medicine; Referring Provider Internal Medicine; Visit Provider Family Medicine
DX: A41.9 Sepsis, unspecified organism (principal); F17.210 Nicotine dependence, cigarettes, uncomplicated; J86.9 Pyothorax without fistula; J96.01 Acute respiratory failure with hypoxia; E87.1 Hypo-osmolality and hyponatremia; B18.2 Chronic viral hepatitis C; R65.20 Severe sepsis without septic shock; F11.23 Opioid dependence with withdrawal; F15.10 Other stimulant abuse, uncomplicated; J18.9 Pneumonia, unspecified organism; E86.1 Hypovolemia; J90 Pleural effusion, not elsewhere classified; Z83.3 Family history of diabetes mellitus; Z86.14 Personal history of Methicillin resistant Staphylococcus aureus infection; G89.29 Other chronic pain
CPT/HCPCS: 32555; 36415; 36600; 71045; 71046; 71250; 71275; 74177; 80048; 80053; 80202; 80307; 81001; 82803; 82945; 83605; 83615; 84157; 84484; 85025; 85027; 85610; 85730; 86703; 87040; 87070; 87075; 87086; 87205; 87426; 87449; 87522; 87641; 88108; 88305; 88313; 89050; 93005; 94640; 94668; 94762; 97802; 99285; J2020; J7030; J7040; J7050; Q9967; A4216; J2405

== ENCOUNTER 2020-12-20 03:21 | Inpatient (IN) | payer MEDICAID, SELFPAY ==
[2020-09-14 12:17] VITALS: BMI 21.3
[2020-12-20] VITALS (14 sets, daily range): BP systolic 108–144; BP diastolic 68–106; PULSE 101–133; RESP 13–30; TEMP 36.4–38.6; O2SAT 90–97; BMI 23.3; BMI 23.1
--- NOTE | 2020-12-20 03:23 | EKG12_ITS ---
Test Reason : OVERDOSE Blood Pressure : / mmHG Vent. Rate : 133 BPM Atrial Rate : 133 BPM P-R Int : 184 ms QRS Dur : 088 ms QT Int : 246 ms P-R-T Axes : 068 051 080 degrees QTc Int : 366 ms Sinus tachycardia with Premature ventricular complexes or Fusion complexes Otherwise normal ECG Confirmed by JILLIAN JENSEN, VERA ([id number]), newspaper editor managing ROCÍO PUENTE ([id number]) on 12/22/2020 9:41:12 AM Referred By: ITZEL Confirmed By:VERA WALSH MD
--- NOTE | 2020-12-20 03:24 | CT_ITS ---
HISTORY: Trauma TECHNIQUE: Multiple axial images were obtained of the brain without intravenous contrast. Coronal and sagittal reformats obtained. Bone algorithm axial images obtained. A radiation dose optimization technique was used for this scan. COMPARISON: None FINDINGS: # of images incl. paperwork: 251 HEMORRHAGE: No evidence of acute intracranial hemorrhage. CEREBRAL PARENCHYMA: --Volume: Unremarkable for age. --White matter: Unremarkable. --Mass: No evidence of intracranial mass. --Stroke: Lopez-white matter differentiation is preserved. VENTRICULAR SYSTEM: No hydrocephalus. MASS EFFECT: No midline shift or focal sulci effacement. Basal cisterns are preserved. SCALP: No large scalp hematoma. CALVARIUM/SKULL BASE: No fracture. PARANASAL SINUSES: Clear. MASTOID AIR CELLS: Clear. ORBITS: Imaged portions are unremarkable. ASPECTS acute stroke score: 10 CT/Brain/Head without Contrast IMPRESSION: No CT evidence of acute intracranial hemorrhage or injury. Individualized dose optimization techniques were used for this CT. at 0504 Reported and signed by: Kiran Lewis MD Electronically Signed: Kiran Lewis MD at 5:03 EDT Tel , Service support ,
--- NOTE | 2020-12-20 03:24 | CT_ITS ---
HISTORY: Trauma TECHNIQUE: Helically acquired images were obtained of the cervical spine without contrast. 2D reformatted images were reviewed. A radiation dose optimization technique was used for this scan. COMPARISON: None FINDINGS: # of images incl. paperwork: [id number] LIMITATIONS: Moderate motion through the mid cervical level, degrades evaluation. SOFT TISSUES: No prevertebral soft tissue swelling. ALIGNMENT: Motion artifact limits evaluation of alignment the mid cervical spine. No gross facet dislocation. FRACTURE: Motion artifact limits evaluation for fracture at C5. No other fracture or acute compression deformity. DISC SPACES/POSTERIOR ELEMENTS: Disc heights are maintained. No evidence of critical spinal canal stenosis. LUNG APICES: Visualized portions are unremarkable. THYROID: Visualized portions are unremarkable. SKULL BASE: Visualized portions are unremarkable. CT/Spine Cervical without Contras IMPRESSION: Study limited by significant motion at C5 level. Cannot exclude fracture at that level. No other evidence of acute injury. . Consider repeat cervical radiograph or CT. Individualized dose optimization techniques were used for this CT. at 0510 Reported and signed by: Kiran Lewis MD Electronically Signed: Kiran Lewis MD at 5:08 EDT Tel , Service support ,
[2020-12-20] MEDS: 0.9% Normal Saline 1,000 ML 999 ML IV ×3 (03:34→09:43)
[2020-12-20 03:41] LABS: Absolute Lymphocyte Count 2.98 X10^3/uL (0.83-4.51); Absolute Neutrophil Count 13.5 X10^3/uL (2.0-7.7); Basophil# 0.06 X10^3/uL; Basophil% 0.3 % (0-1); Eosinophil# 0.04 X10^3/uL; Eosinophils% 0.2 % (0-5); Hemoglobin 15.1 g/dL (13.0-16.5); Lymphocyte # 2.98 X10^3/ul (0.83-4.51); Lymphocyte % 16.3 % (19-41); Mean Corp Hgb Conc 35.1 g/dL (32-36); Mean Corpuscular Hgb 31.5 pg (27.0-32.0); Mean Corpuscular Volume 89.6 fL (80-94); Mean Platelet Vol. 9.4 fl (6.2-12.0); Monocyte# 1.63 X10^3/uL; Monocyte% 8.9 % (0-10); NRBC Flagged by Analyzer 0 % (0-5); Neutrophil # 13.54 X10^3/uL (2.7-7.7); Neutrophil % 73.9 % (47-70); POSITIVE COUNT YES; POSITIVE DIFFERENTIAL YES; Platelet Count 357 K/mm3 (150-450); RBC Distribution Width CV 11.6 % (11.6-14.6); RBC Distribution Width SD 37.7 fl (35.1-43.9); White Blood Count 18.3 K/mm3 (4.4-11.0)
[2020-12-20 03:42] LABS: Differential Indicated SCAN CRITERIA MET
--- NOTE | 2020-12-20 03:47 | EX.ED.SAOD ---
HPI History of Present Illness Chief Complaint: Overdose Narrative Narrative: 40-year-old male presenting for evaluation for confusion. Cate NINO was called to the scene which was his friend's house. Apparently his friend lives with his mother and they were in the back bedroom which was apparently his. There was drug paraphernalia. Apparently patient started acting abnormally and EMS was called. When EMS arrived on scene they did call me because the patient was having agitated delirium and was trying to hit himself in there were feeling unsafe so they did give him ketamine. On arrival he is unresponsive and is agonal breathing. [facility] Medical History Hypertension Allergy/AdvReac Type Severity Reaction Status Date / Time bee venom protein (honey bee) Allergy Anaphylaxis Verified 09/14/20 12:22 seasonal Allergy Other Uncoded 09/14/20 12:22 Social History Smoking Status: Current some day smoker tobacco type: cigarettes ROS ROS ED Review of Systems ROS Unobtainable: due to mental condition and due to mental status EXAM Physical Exam Const Vital Signs: 12/20/20 03:22 12/20/20 03:27 12/20/20 05:50 Temperature 101.4 F H 101.3 F H Temperature Source Temporal Temporal Pulse Rate 133 H 133 H 127 H Respiratory Rate 14 13 25 H Blood Pressure 144/76 H 144/76 H 127/95 H Blood Pressure Mean 98 98 105 Pulse Ox 93 90 96 Oxygen Delivery Method Non-Rebreather Non-Rebreather 12/20/20 06:00 12/20/20 07:27 Temperature 99.1 F 98.5 F Temperature Source Oral Oral Pulse Rate 129 H 111 H Respiratory Rate 30 H 20 H Blood Pressure 119/94 H 120/106 H Blood Pressure Mean 102 110 Pulse Ox 96 97 Oxygen Delivery Method Room Air Room Air Positive unkempt General Appearance ED: unkempt and in distress Positive for respiratory Orientation / Consciousness: obtunded HEENT HEENT Narrative: Contusions to the right forehead. Eyes Eyes Narrative: Pinpoint pupils Chest Wall inspection of chest normal Resp Resp Narrative: Agonal breathing Cardio regular rhythm Rate: tachycardic GI soft to palpation and non-tender Extremity General Extremety ED: Negative for edema or tenderness General Extremity: Negative for edema Neuro Sensorium / Orientation: stuporous Psych Appearance: unkempt Skin Skin Narrative: Contusions to the forehead as described above MDM MDM MDM Narrative Medical decision making narrative: Patient presents with altered mental status and is having agonal breathing. His pupils are pinpoint he was given Narcan. He does immediately respond and wakes up although he is now agitated and confused. He is found to have a temperature of 101.3. Lungs are clear to auscultation. Abdomen is soft and not apparently tender. There are contusions to the face which [place] PD states he gave to himself. After getting the Narcan the patient did become more normal. Patient still not able to respond meaningfully but his eyes are open and he sitting up and trying to get out of bed. At this point we had to restrain him with patricia. I am withholding meds currently given the patient's current state of confusion. I will obtain lab work and imaging. Patient now awake and talking and he admits to doing a speed ball with his friend. He states this does include fentanyl. His drug screen is positive for methamphetamine as well. Patient currently is awake and alert and oriented. He states he just got out of care home recently. EKG shows a sinus tachycardia at 133 bpm with a lot of artifact which is likely secondary to patient motion on my interpretation. Patient has a leukocytosis of 18.3. Hemoglobin hematocrit are stable. Platelets are normal. His electrolytes are normal however his creatinine is elevated at 2.47 was 0.86 in August. Patient was given 2 L of IV fluids. Urinalysis is negative for infection. Chest x-ray on my interpretation shows no acute cardiopulmonary process and the radiologist does agree. CT brain is negative for acute intracranial process. CT cervical spine does have some motion artifact and cannot rule out fracture at C5 however now that the patient is alert and awake is not having any neck pain. Patient CPK is pending on admission however it is reported that the lab states that it is very high it needs to be diluted to be resulted. Given this I believe the patient is likely in rhabdomyolysis. He has been given 2 L of normal saline and is started on a rate of 150/h. Patient discussed with hospitalist for admission. Impression: 1. Fever resolved 2. Altered mental status resolved 3. Facial contusions 4. Methamphetamine abuse 5. Fentanyl abuse 6. Drug overdose 7. Acute kidney injury 8. Rhabdomyolysis Lab Data Attestation: I reviewed the patient's lab results. Labs: Laboratory Results - last 24 hr 12/20/20 12/20/20 12/20/20 03:30 03:30 03:30 WBC 18.3 H RBC 4.80 Hgb 15.1 Hct 43.0 MCV 89.6 MCH 31.5 MCHC 35.1 RDW Std Deviation 37.7 RDW Coeff of Vaibhav 11.6 Plt Count 357 MPV 9.4 Immature Gran % (Auto) 0.400 Neut % (Auto) 73.9 H Lymph % (Auto) 16.3 L [place] % (Auto) 8.9 Eos % (Auto) 0.2 Baso % (Auto) 0.3 Absolute Neuts (auto) 13.5 H Absolute Lymphs (auto) 2.98 Nucleated RBC % 0 Differential Comment SCANNED Diff Path Review May foll Platelet Estimate ADEQUATE Plt Morphology Comment CLUMPED PT INR Sodium 143 Potassium 4.7 Chloride 105 Carbon Dioxide 28.0 Anion Gap 10 BUN 41 H Creatinine 2.47 H Estim Creat Clear Calc 35.52 Est GFR (MDRD) Af Amer 37 L Est GFR (MDRD) Non-Af 31 L BUN/Creatinine Ratio 16.6 Glucose 61 L Calcium 8.9 Urine Opiates Screen Urine Methadone Screen Ur Barbiturates Screen Ur Phencyclidine Scrn Ur Amphetamines Screen U Methamphetamin-MDMA U Benzodiazepines Scrn Urine Cocaine Screen U Cannabinoids Screen Ur Drug Screen Comment Ethyl Alcohol < 3.0 12/20/20 12/20/20 03:35 05:50 WBC RBC Hgb Hct MCV MCH MCHC RDW Std Deviation RDW Coeff of Vaibhav Plt Count MPV Immature Gran % (Auto) Neut % (Auto) Lymph % (Auto) [place] % (Auto) Eos % (Auto) Baso % (Auto) Absolute Neuts (auto) Absolute Lymphs (auto) Nucleated RBC % Differential Comment Diff Path Review Platelet Estimate Plt Morphology Comment PT 13.6 INR 1.1 Sodium Potassium Chloride Carbon Dioxide Anion Gap BUN Creatinine Estim Creat Clear Calc Est GFR (MDRD) Af Amer Est GFR (MDRD) Non-Af BUN/Creatinine Ratio Glucose Calcium Urine Opiates Screen NEGATIVE Urine Methadone Screen NEGATIVE Ur Barbiturates Screen NEGATIVE Ur Phencyclidine Scrn NEGATIVE Ur Amphetamines Screen POSITIVE H U Methamphetamin-MDMA POSITIVE H U Benzodiazepines Scrn NEGATIVE Urine Cocaine Screen NEGATIVE U Cannabinoids Screen NEGATIVE Ur Drug Screen Comment Ethyl Alcohol Radiography Diagnostic Testing: Radiology Impression Brain CT 12/20/20 03:24 IMPRESSION: No CT evidence of acute intracranial hemorrhage or injury. Individualized dose optimization techniques were used for this CT. at 0504 Reported and signed by: Kiran Lewis MD Electronically Signed: Kiran Lewis MD at 5:03 EDT Tel , Service support , Cervical Spine CT 12/20/20 03:24 IMPRESSION: Study limited by significant motion at C5 level. Cannot exclude fracture at that level. No other evidence of acute injury. . Consider repeat cervical radiograph or CT. Individualized dose optimization techniques were used for this CT. at 0510 Reported and signed by: Kiran Lewis MD Electronically Signed: Kiran Lewis MD at 5:08 EDT Tel , Service support , Chest X-Ray 12/20/20 04:21 IMPRESSION: No evidence of acute cardiopulmonary process. Mild bilateral basilar subsegmental atelectasis or scarring. at 0517 Reported and signed by: Kiran Lewis MD Electronically Signed: Kiran Lewis MD at 5:15 EDT Tel , Service support , Discharge Plan Triage Chief Complaint: Overdose ED Provider: Tk Sim Dx/Rx/DC Orders Primary Care Provider: Care Physician,No Primary
[2020-12-20 03:53] LABS: Alcohol, Blood (Medical)-Serum < 3.0 mg/dL
[2020-12-20 04:02] LABS: Anion Gap 10 (5-15); BUN 41 mg/dL (7-18); BUN/Creat Ratio 16.6 RATIO (10-20); Calcium,Total 8.9 mg/dL (8.5-10.1); Chloride 105 mmol/L (98-107); Creatinine, Serum 2.47 mg/dL (0.70-1.30); EST Glomerular Filtration Rate 31 mL/min (>60); Est Glom Filt Rate - Afr Amer 37 mL/min (>60); Estimated Creatinine Clearance 35.52 ml/min; Glucose 61 mg/dL (74-106); Potassium 4.7 mmol/L (3.5-5.1); Sodium Level 143 mmol/L (136-145)
[2020-12-20 04:05] LABS: International Normalized Ratio 1.1; Prothrombin Time (Protime)PT. 13.6 SECONDS (11.7-14.9)
--- NOTE | 2020-12-20 04:21 | RAD_ITS ---
HISTORY: Trauma EXAMINATION/TECHNIQUE: XR Chest 1 View: COMPARISON: 04/06/2020 FINDINGS: LINES/DEVICES: None. LUNGS: Mild bilateral linear atelectasis or scarring. No airspace consolidation. Unremarkable interstitium. No effusion. No pneumothorax. MEDIASTINUM: No cardiomegaly. MUSCULOSKELETAL: No acute osseous finding. Clinic right, clavicular widening. RAD/Chest 1 View (Portable) IMPRESSION: No evidence of acute cardiopulmonary process. Mild bilateral basilar subsegmental atelectasis or scarring. at 0517 Reported and signed by: Kiran Lewis MD Electronically Signed: Kiran Lewis MD at 5:15 EDT Tel , Service support ,
[2020-12-20 04:24] LABS: Differential Comment SCANNED
[2020-12-20 04:25] LABS: Platelet Estimate ADEQUATE (ADEQ); Platelet Morphology CLUMPED
[2020-12-20] MEDS: Acetaminophen 500 MG Tablet 1000 MG PO (06:01)
[2020-12-20 06:14] LABS: Amphetamine Urine VISTA POSITIVE (<1000 ng/mL); Barbiturate Urine VISTA NEGATIVE (< 200 ng/mL); Benzodiazepine Urine VISTA NEGATIVE (< 200 ng/mL); Cocaine Urine VISTA NEGATIVE (< 300 ng/mL); Ecstacy Urine VISTA POSITIVE (< 500 ng/mL); Methadone Urine VISTA NEGATIVE (< 300 ng/mL); PCP Urine VISTA NEGATIVE (< 25 ng/mL); THC Urine VISTA NEGATIVE (< 50 ng/mL); Vista UDS pH Range 5
[2020-12-20 07:52] LABS: CPK Total, Creatine Kinase 40704 U/L (39-308)
--- NOTE | 2020-12-20 08:11 | HP.PCM.HOS_ITS ---
HPI - General General Date of Admission: 12/20/20 HPI Narrative MED QUICK, is a 40 M who was brought by immigration law specialist to ED for being found agitated, belligerent, delirious, punching himself in the face and head, agitated, [id number]. It seems patient was using crystal meth. Patient was medicated by squad with ketamine. Patient also found to have agonal breathing and was given Narcan in the ED. Apparently patient was in nursing home for 4 months and was released about 2 days ago, last Monday. Temperature 101.3, tachycardic, tachypneic. U tox was positive of methamphetamine. EKG shows sinus tachycardia at 133 bpm with PVCs and fusion complexes. QTc 366 ms. Patient has leukocytosis. Bicarb 28, K4.7. BUN 41, creatinine 2.47, previous creatinine was normal 0.86 in August. Chest x-ray shows atelectasis and scarring related to previous chest tube and pneumonia. Glucose is 61. CK 40,704. Patient was given 2 L of normal saline and improved and brought in for further admitted. Patient has known history of using fentanyl, other opioids, methamphetamine and had empyema and pleural effusion, and was sent to tertiary care center probably [facility] with chest tube for about 2 months and then drug rehab for 7 months last year. After that it seems he relapsed and then went to nursing home. History of MRSA bacteremia. Patient smokes a pack of cigarettes daily. He had quit alcohol about 10 to 15 years ago. Probably did drink alcohol in teenage for about 10 years. Family history significant bipolar disorder in both parents, 2 brothers and one of them probably schizophrenia [facility] Medical History Hypertension Allergy/AdvReac Type Severity Reaction Status Date / Time bee venom protein (honey bee) Allergy Anaphylaxis Verified 09/14/20 12:22 seasonal Allergy Other Uncoded 09/14/20 12:22 Family History (Updated 12/20/20 @ 08:[address] Guille Chacko MD) Other Bipolar 1 disorder Social History Smoking Status: Current some day smoker tobacco type: cigarettes ROS ROS Narrative Patient denies nausea vomiting, abdominal pain. Denies fall, loss of consciousness but hyperactive, belligerent, delirious as mentioned in HPI Denies dysuria or urinary type symptoms. Denies diarrhea Rest detailed 12 ROS are unobtainable due to drug induced/toxic encephalopathy Review of Systems ROS Unobtainable: due to encephalopathy and due to mental status Vital Signs Vital Signs Vital Signs: 12/20/20 03:22 12/20/20 03:27 12/20/20 05:50 Temperature 101.4 F H 101.3 F H Temperature Source Temporal Temporal Pulse Rate 133 H 133 H 127 H Respiratory Rate 14 13 25 H Blood Pressure 144/76 H 144/76 H 127/95 H Blood Pressure Mean 98 98 105 Pulse Ox 93 90 96 Oxygen Delivery Method Non-Rebreather Non-Rebreather 12/20/20 06:00 12/20/20 07:27 Temperature 99.1 F 98.5 F Temperature Source Oral Oral Pulse Rate 129 H 111 H Respiratory Rate 30 H 20 H Blood Pressure 119/94 H 120/106 H Blood Pressure Mean 102 110 Pulse Ox 96 97 Oxygen Delivery Method Room Air Room Air Weight Weight: 144 lb 13.499 oz Body Mass Index (BMI) 23.3 Physical Exam Narrative Physical exam General: Hyperactive, delirious, sometimes confused, inattentive HEENT: Atraumatic, PERRLA, EOMI, Normocephalic Oral: Oral mucosa is dry. No Gingival or Mucosal Lesions/ Ulcerations Neck: Supple, No JVD, Negative Carotid Bruits Lungs: Air entry equal in both lungs. No crepitation/rhonchi Cardiovascular: Sinus tachycardia, regular rhythm, Normal S1, Normal S2, No murmurs Abdomen: Bowel Sounds Present, Soft, Non Tender, Non-Distended : No renal angle tenderness. No suprapubic tenderness. Extremities: No edema, Capillary Refill Less than 3 Seconds Skin: No rashes, No breakdown. 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 Psych/Mental Status: Hyperactive, delirious Results Lab / Micro Data Result Diagrams: 12/20/20 03:30 12/20/20 03:30 Labs: Laboratory Results - last 24 hr 12/20/20 03:30: WBC 18.3 H, RBC 4.80, Hgb 15.1, Hct 43.0, MCV 89.6, MCH 31.5, MCHC 35.1, RDW Std Deviation 37.7, RDW Coeff of Vaibhav 11.6, Plt Count 357, MPV 9.4, Immature Gran % (Auto) 0.400, Neut % (Auto) 73.9 H, Lymph % (Auto) 16.3 L, Mitchell % (Auto) 8.9, Eos % (Auto) 0.2, Baso % (Auto) 0.3, Absolute Neuts (auto) 13.5 H, Absolute Lymphs (auto) 2.98, Nucleated RBC % 0, Differential Comment SCANNED, Diff Path Review September, Platelet Estimate ADEQUATE, Plt Morphology Comment CLUMPED 12/20/20 03:30: Sodium 143, Potassium 4.7, Chloride 105, Carbon Dioxide 28.0, Anion Gap 10, BUN 41 H, Creatinine 2.47 H, Estim Creat Clear Calc 35.52, Est GFR (MDRD) Af Amer 37 L, Est GFR (MDRD) Non-Af 31 L, BUN/Creatinine Ratio 16.6, Glucose 61 L, Calcium 8.9 12/20/20 03:30: Ethyl Alcohol < 3.0 12/20/20 03:30: Total Creatine Kinase 65766 H 12/20/20 03:35: PT 13.6, INR 1.1 12/20/20 05:50: Urine Opiates Screen NEGATIVE, Urine Methadone Screen NEGATIVE, Ur Barbiturates Screen NEGATIVE, Ur Phencyclidine Scrn NEGATIVE, Ur Amphetamines Screen POSITIVE H, U Methamphetamin-MDMA POSITIVE H, U Benzodiazepines Scrn NEG ATIVE, Urine Cocaine Screen NEGATIVE, U Cannabinoids Screen NEGATIVE, Ur Drug Screen Comment Micro: Microbiology 12/20/20 04:04 Mucosa - Nose SARS-CoV-2 Antigen (Rapid) - Final Radiology Impression Brain CT 12/20/20 03:24 IMPRESSION: No CT evidence of acute intracranial hemorrhage or injury. Individualized dose optimization techniques were used for this CT. at 0504 Reported and signed by: Kiran Lewis MD Electronically Signed: Kiran Lewis MD at 5:03 EDT Tel , Service support , Cervical Spine CT 12/20/20 03:24 IMPRESSION: Study limited by significant motion at C5 level. Cannot exclude fracture at that level. No other evidence of acute injury. . Consider repeat cervical radiograph or CT. Individualized dose optimization techniques were used for this CT. at 0510 Reported and signed by: Kiran Lewis MD Electronically Signed: Kiran Lewis MD at 5:08 EDT Tel , Service support , Chest X-Ray 12/20/20 04:21 IMPRESSION: No evidence of acute cardiopulmonary process. Mild bilateral basilar subsegmental atelectasis or scarring. at 0517 Reported and signed by: Kiran Lewis MD Electronically Signed: Kiran Lewis MD at 5:15 EDT Tel , Service support , Assessment & Plan Assessment/Plan (1) Acute encephalopathy: (2) Methamphetamine addiction: (3) Polysubstance (including opioids) dependence, daily use: (4) Rhabdomyolysis: QUALIFIERS: Rhabdomyolysis type: non-traumatic Qualified Code(s): M62.82 - Rhabdomyolysis (5) KT (acute kidney injury): PLAN: MED QUICK, is a 40 M who was brought by immigration law specialist to ED for being found agitated, belligerent, delirious, punching himself in the face and head, agitated, [id number] consistent with methamphetamine/sympathomimetic intoxication. Patient has leukocytosis. Bicarb 28, K4.7. BUN 41, creatinine 2.47, previous creatinine was normal 0.86 in August. Chest x-ray shows atelectasis and scarring related to previous chest tube and pneumonia. Glucose is 61. CK 40,704. 1. Acute rhabdomyolysis with KT probably prerenal from rhabdomyolysis: Patient is being admitted in PCU. CK 40,704. Multineedle Shirrer has been consulted. Patient had 2 L of normal saline bolus and then 1 more liter of normal saline bolus. Afterwards, half-normal saline at 250 mill per hour.Serum magnesium and phosphorus ordered. Liver chemistry ordered.Serum magnesium and phosphorus ordered. Liver chemistry ordered. Knapp catheter order for KT with severe rhabdomyolysis and acute intake and output. Monitor electrolytes, kidney function. 2. SIRS (tachycardia, tachypnea, leukocytosis) most probably from crystal meth/methamphetamine, sympathomimetic effect: Lactic acid is ordered. Patient does not have signs and symptoms of infection or UTI, pneumonia or infection or sepsis. Heart rate and respiratory rate are getting better. Blood pressure is maintained. Blood cultures x2, UA with urine culture ordered. 3. Crystal meth/opioids (sympathomimetic, pseudoephedrine, methamphetamine, cocktail with opioids) intoxication: Patient belligerent condition is controlled. Patient is pink slipped by the immigration law specialist. Patient is hypoglycemic therefore 12.5 g of D50 glucose. High-sensitivity troponin every 2 hourly, 2 times to rule out ACS. EKG shows sinus tachycardia at 133 bpm with PVCs and fusion complexes. QTc 366 ms. Patient does not have chest pain but sinus tachycardia. Will monitor CINA or COWS. Patient has history of fentanyl use and needs hepatitis C history. 4. Acute encephalopathy/toxic encephalopathy from crystal meth/substance use disorder 5. History of emphysema, chest tube for cellulitis and hyponatremia in the past: Patient was transferred in March 2020 for empyema of right lung to [facility] VTE prophylaxis: Lovenox 40 subcu daily Clinical Impression(s) from Imaging Studies Brain CT 12/20/20 03:24 IMPRESSION: No CT evidence of acute intracranial hemorrhage or injury. Individualized dose optimization techniques were used for this CT. Cervical Spine CT 12/20/20 03:24 IMPRESSION: Study limited by significant motion at C5 level. Cannot exclude fracture at that level. No other evidence of acute injury. . Consider repeat cervical radiograph or CT. Individualized dose optimization techniques were used for this CT. Chest X-Ray 12/20/20 04:21 IMPRESSION: No evidence of acute cardiopulmonary process. Mild bilateral basilar subsegmental atelectasis or scarring. Charges/Coding Visit Charges Inpatient E&M: 81742 Init Hosp L3
[2020-12-20 08:52] LABS: AST(SGOT) 596 U/L (15-37); Alanine Aminotransfer ALT/SGPT 105 U/L (16-61); Albumin, Serum 4.8 g/dL (3.2-5.0); Alkaline Phosphatase 99 U/L (45-117); Bilirubin, Direct 0.23 mg/dL (0.00-0.30); Globulin 4.1 g/dL (2.2-4.2); Magnesium 3.3 mg/dL (1.6-2.6); Phosphorus 10.3 mg/dL (2.5-4.9); Protein, Total 8.9 g/dL (6.4-8.2)
[2020-12-20] MEDS: Dextrose 50%-Water 25 GM/50 ML DISP.SYRIN IV (09:43)
[2020-12-20 10:21] LABS: Troponin-I HS 229.1 pg/mL (3.0-78.5)
[2020-12-20 10:24] LABS: Bacteria 0 SEEN /hpf (None Seen); Color, Urine Yellow (Yellow); Glucose, Dipstick Normal (Normal); Ketone-Dipstick 50 mg/dl (Negative); Leukocyte Esterase-Dipstick Negative /ul (Negative); Mucous, Urine 0 SEEN /hpf (<or=2+); Nitrite-Dipstick Negative (Negative); Occult Blood-Urine 250 /ul (Negative); Protein-Dipstick 100 mg/dl (Negative); Specific Gravity, Urine 1.025 (1.002-1.030); Squamous Epithelial Cells - UA 0 SEEN /hpf (0-5); Urine Bilirubin Dipstick Negative (Negative); Urine Clarity Sl. Cloudy (Clear); Urine Urobilinogen Normal (Normal); White Blood Cells 0 SEEN /hpf (0-5)
[2020-12-20 10:49] LABS: Hyaline Cast 0-5 SEEN /lpf (0-5); Red Blood Cells-Urine 0-5 SEEN /hpf (0-5)
[2020-12-20] MEDS: 0.45% Normal Saline 1,000 ML 250 ML IV ×4 (11:11→23:01)
[2020-12-20 11:14] LABS: Troponin-I HS 190.9 pg/mL (3.0-78.5)
[2020-12-20] MEDS: cloNIDine HCl 0.1 MG Tablet PO ×2 (11:15→21:12)
[2020-12-20] MEDS: Enoxaparin 40 MG/0.4 ML Syringe SC (11:15)
--- NOTE | 2020-12-20 11:25 | ECHOD_ITS ---
Reason For Study: elevated troponin, meth use. Procedure This was a 2D Doppler, Color Flow transthoracic echocardiogram. Exam performed in department. Left Ventricle Normal LV size. Left ventricular systolic function is normal. The estimated ejection fraction is 60 %. Stage 1 diastolic dysfunction. No regional wall motion abnormalities noted. Right Ventricle Normal RV size. Normal systolic function. Atria Normal left atrium. Normal right atrium. Mitral Valve Normal mitral valve. Tricuspid Valve Normal tricuspid valve. Mild tricuspid valve insufficiency. Pulmonary artery systolic pressure is 25 mmHg. Aortic Valve Trisinus/trileaflet aortic valve. Pulmonic Valve Normal pulmonic valve. Great Vessels Normal aortic root. The pulmonary artery is normal size. Normal inferior vena cava. Pericardium/Pleural No pericardial effusion. MMode/2D Measurements & Calculations LVIDd: 4.2 cm IVSd: 0.86 cm Ao root diam: 3.0 cm LVIDs: 3.2 cm LVPWd: 0.80 cm RVDd: 3.8 cm FS: 22.4 % LAV(MOD-bp): 36.1 ml LA A4 area: 14.6 cm2 LA dimension(2D): 2.8 cm LAV(MOD-bp) Indexed: 20.8 ml/m2 LAV(MOD-sp2): 31.7 ml LAV(MOD-sp4): 37.8 ml RA A4 area: 10.9 cm2 Time Measurements MV dec time: 0.16 sec Doppler Measurements & Calculations MV E max pancho: 79.0 cm/sec Lat Peak E' Pancho: 14.5 cm/sec Med Peak E' Pancho: 14.5 cm/sec MV A max pancho: 98.3 cm/sec E/E' lat: 5.5 E/E' med: 5.5 MV E/A: 0.80 Ao V2 max: 136.1 cm/sec LV V1 max: 102.8 cm/sec PA V2 max: 105.4 cm/sec Ao max P.4 mmHg LV V1 max P.2 mmHg TR max pancho: 235.5 cm/sec TR max P.2 mmHg ECHO/Echo Complete Interpretation Summary Normal LV size. Left ventricular systolic function is normal. The estimated ejection fraction is 60 %. Stage 1 diastolic dysfunction. Structurally normal valves. Ordering Physician: Guille Chacko Referring Physician: RONALDO PCP Performed By: Geena Curiel RDCS, RVT
[2020-12-20 11:51] LABS: Bedside Glucose 93 mg/dL (70-110)
--- NOTE | 2020-12-20 15:08 | EKG12_ITS ---
Test Reason : ELEVATED TROP Blood Pressure : / mmHG Vent. Rate : 101 BPM Atrial Rate : 101 BPM P-R Int : 148 ms QRS Dur : 080 ms QT Int : 358 ms P-R-T Axes : 048 036 044 degrees QTc Int : 464 ms Sinus tachycardia Otherwise normal ECG When compared with ECG of 20-DEC-2020 03:28, MANUAL COMPARISON REQUIRED, DATA IS UNCONFIRMED Confirmed by JILLIAN JENSEN, VERA ([id number]), manager editorial ROCÍO PUENTE ([id number]) on 12/22/2020 9:48:40 AM Referred By: KURT Confirmed By:VERA WALSH MD
[2020-12-20 15:19] LABS: Troponin-I HS 141.4 pg/mL (3.0-78.5)
--- NOTE | 2020-12-20 18:30 | CON.PCM.RE_ITS ---
Assessment & Plan Assessment/Plan (1) KT (acute kidney injury): PLAN: DUE TO RHABDO. CONTINUE FLUIDS. (2) Rhabdomyolysis: QUALIFIERS: Rhabdomyolysis type: non-traumatic Qualified Code(s): M62.82 - Rhabdomyolysis PLAN: DUE TO METH USE. FLUIDS ORDERED DW dR Brooks HPI Consult Data Date of Consult: 12/20/20 HPI Narrative HPI Narrative: MED QUICK, is a 40 M who presents TO THE HOSPITAL WITH AGITATION. RENAL CONSULTED FOR kt AND RHABDO. APPARENTLY TOOK METH. UTOX POSITIVE [facility] Medical History Hypertension Home Medications clonidine HCl 0.1 mg PO BID 12/20/20 [History Last Taken Unknown] hydroxyzine pamoate [Vistaril] 50 mg PO PRN 12/20/20 [History Last Taken Unknown] Allergy/AdvReac Type Severity Reaction Status Date / Time bee venom protein (honey bee) Allergy Anaphylaxis Verified 09/14/20 12:22 seasonal Allergy Other Uncoded 09/14/20 12:22 Family History (Updated 12/20/20 @ 08:[address] Guille Brooks MD) Other Bipolar 1 disorder Social History Smoking Status: Current some day smoker tobacco type: cigarettes ROS ROS Narrative NEGATIVE EXCEPT ABOVE Physical Exam Narrative Alert awake oriented x 3 no obvious distress no pallor no icterus no JVD s1s2 no murmurs lungs clear abdomen soft no organomegaly no edema no cyanosis dominguez + Lab / Micro Data Result Diagrams: 12/20/20 03:30 12/20/20 03:30 Labs: Laboratory Results - last 24 hr 12/20/20 03:30: WBC 18.3 H, RBC 4.80, Hgb 15.1, Hct 43.0, MCV 89.6, MCH 31.5, MCHC 35.1, RDW Std Deviation 37.7, RDW Coeff of Vaibhav 11.6, Plt Count 357, MPV 9.4, Immature Gran % (Auto) 0.400, Neut % (Auto) 73.9 H, Lymph % (Auto) 16.3 L, [place] % (Auto) 8.9, Eos % (Auto) 0.2, Baso % (Auto) 0.3, Absolute Neuts (auto) 13.5 H, Absolute Lymphs (auto) 2.98, Nucleated RBC % 0, Differential Comment SCANNED, Diff Path Review May foll, Platelet Estimate ADEQUATE, Plt Morphology Comment CLUMPED 12/20/20 03:30: Sodium 143, Potassium 4.7, Chloride 105, Carbon Dioxide 28.0, Anion Gap 10, BUN 41 H, Creatinine 2.47 H, Estim Creat Clear Calc 35.52, Est GFR (MDRD) Af Amer 37 L, Est GFR (MDRD) Non-Af 31 L, BUN/Creatinine Ratio 16.6, Glucose 61 L, Calcium 8.9 12/20/20 03:30: Ethyl Alcohol < 3.0 12/20/20 03:30: Total Creatine Kinase 24821 H 12/20/20 03:30: Phosphorus 10.3 H*, Magnesium 3.3 H, Total Bilirubin 1.20 H, Direct Bilirubin 0.23, AST 596 H, ALT 105 H, Alkaline Phosphatase 99, Total Protein 8.9 H, Albumin 4.8, Globulin 4.1 12/20/20 03:35: PT 13.6, INR 1.1 12/20/20 05:50: Urine Opiates Screen NEGATIVE, Urine Methadone Screen NEGATIVE, Ur Barbiturates Screen NEGATIVE, Ur Phencyclidine Scrn NEGATIVE, Ur Amphetamines Screen POSITIVE H, U Methamphetamin-MDMA POSITIVE H, U Benzodiazepines Scrn NEGATIVE, Urine Cocaine Screen NEGATIVE, U Cannabinoids Screen NEGATIVE, Ur Drug Screen Comment 12/20/20 09:05: Lactic Acid 1.0 12/20/20 09:05: Troponin I High Sens 229.1 H* 12/20/20 10:20: Urine Color Yellow, Urine Clarity Sl. Cloudy, Urine pH 5.0, Ur Specific [place] 1.025, Urine Protein 100 H, Urine Glucose (UA) Normal, Urine Ketones 50 H, Urine Occult Blood 250 H, Urine Nitrite Negative, Urine Bilirubin Negative, Urine Urobilinogen Normal, Ur Leukocyte Esterase Negative, Urine RBC 0-5 SEEN, Urine WBC 0 SEEN, Ur Squamous Epith Cells 0 SEEN, Urine Bacteria 0 SEEN, Hyaline Casts 0-5 SEEN, Urine Mucus 0 SEEN 12/20/20 10:28: Troponin I High Sens 190.9 H* 12/20/20 11:06: POC Glucose 93 12/20/20 14:16: Troponin I High Sens 141.4 H* Micro: Microbiology 12/20/20 04:04 Mucosa - Nose SARS-CoV-2 Antigen (Rapid) - Final Radiology Impression Brain CT 12/20/20 03:24 IMPRESSION: No CT evidence of acute intracranial hemorrhage or injury. Individualized dose optimization techniques were used for this CT. at 0504 Reported and signed by: Kiran Lewis MD Electronically Signed: Kiran Lewis MD at 5:03 EDT Tel , Service support , Cervical Spine CT 12/20/20 03:24 IMPRESSION: Study limited by significant motion at C5 level. Cannot exclude fracture at that level. No other evidence of acute injury. . Consider repeat cervical radiograph or CT. Individualized dose optimization techniques were used for this CT. at 0510 Reported and signed by: Kiran Lewis MD Electronically Signed: Kiran Lewis MD at 5:08 EDT Tel , Service support , Chest X-Ray 12/20/20 04:21 IMPRESSION: No evidence of acute cardiopulmonary process. Mild bilateral basilar subsegmental atelectasis or scarring. at 0517 Reported and signed by: Kiran Lewis MD Electronically Signed: Kiran Lewis MD at 5:15 EDT Tel , Service support ,
[2020-12-20 20:38] LABS: Anion Gap 6 (5-15); BUN 29 mg/dL (7-18); BUN/Creat Ratio 29.9 RATIO (10-20); Calcium,Total 7.6 mg/dL (8.5-10.1); Chloride 108 mmol/L (98-107); Creatinine, Serum 0.97 mg/dL (0.70-1.30); EST Glomerular Filtration Rate 90 mL/min (>60); Est Glom Filt Rate - Afr Amer 109 mL/min (>60); Estimated Creatinine Clearance 90.44 ml/min; Glucose 98 mg/dL (74-106); Potassium 3.3 mmol/L (3.5-5.1); Sodium Level 138 mmol/L (136-145)
[2020-12-20] MEDS: Methocarbamol 750 MG Tablet 1500 MG PO (21:12)
[2020-12-21] VITALS (11 sets, daily range): BP systolic 111–127; BP diastolic 69–82; PULSE 87–115; RESP 16–18; TEMP 36.3–37.2; O2SAT 96–99
[2020-12-21] MEDS: 0.45% Normal Saline 1,000 ML 250 ML IV ×2 (03:01→06:40)
[2020-12-21 06:12] LABS: Absolute Lymphocyte Count 2.93 X10^3/uL (0.83-4.51); Absolute Neutrophil Count 5.7 X10^3/uL (2.0-7.7); Basophil# 0.06 X10^3/uL; Basophil% 0.6 % (0-1); Eosinophil# 0.22 X10^3/uL; Eosinophils% 2.3 % (0-5); Hematocrit 35.2 % (40-54); Hemoglobin 12.3 g/dL (13.0-16.5); Lymphocyte # 2.93 X10^3/ul (0.83-4.51); Lymphocyte % 30.4 % (19-41); Mean Corp Hgb Conc 34.9 g/dL (32-36); Mean Corpuscular Hgb 30.9 pg (27.0-32.0); Mean Corpuscular Volume 88.4 fL (80-94); Mean Platelet Vol. 8.9 fl (6.2-12.0); Monocyte# 0.67 X10^3/uL; NRBC Flagged by Analyzer 0 % (0-5); Neutrophil # 5.73 X10^3/uL (2.7-7.7); Neutrophil % 59.4 % (47-70); Platelet Count 253 K/mm3 (150-450); RBC Distribution Width CV 11.5 % (11.6-14.6); RBC Distribution Width SD 37.2 fl (35.1-43.9); Red Blood Count 3.98 M/mm3 (4.6-6.2); White Blood Count 9.6 K/mm3 (4.4-11.0)
[2020-12-21 07:50] LABS: ALB/GLOB Ratio 1.1 RATIO (0.9-2.4); AST(SGOT) 624 U/L (15-37); Alanine Aminotransfer ALT/SGPT 155 U/L (16-61); Albumin, Serum 3.3 g/dL (3.2-5.0); Alkaline Phosphatase 82 U/L (45-117); Anion Gap 6 (5-15); BUN 18 mg/dL (7-18); BUN/Creat Ratio 25.4 RATIO (10-20); Calcium,Total 7.5 mg/dL (8.5-10.1); Chloride 111 mmol/L (98-107); Creatinine, Serum 0.71 mg/dL (0.70-1.30); EST Glomerular Filtration Rate 130 mL/min (>60); Est Glom Filt Rate - Afr Amer 157 mL/min (>60); Estimated Creatinine Clearance 123.56 ml/min; Globulin 2.9 g/dL (2.2-4.2); Glucose 104 mg/dL (74-106); Phosphorus 1.8 mg/dL (2.5-4.9); Potassium 3.5 mmol/L (3.5-5.1); Protein, Total 6.2 g/dL (6.4-8.2); Sodium Level 140 mmol/L (136-145); Thyroid Stim Hormone (TSH) 1.87 uIU/mL (0.358-3.74)
[2020-12-21] MEDS: Folic Acid 1 MG Tablet PO (08:43)
[2020-12-21] MEDS: cloNIDine HCl 0.1 MG Tablet PO (08:43)
[2020-12-21] MEDS: Thiamine Hydrochloride 100 MG Tablet PO (08:43)
[2020-12-21] MEDS: Enoxaparin 40 MG/0.4 ML Syringe SC (08:45)
--- NOTE | 2020-12-21 09:41 | ADDICTION ---
This casualty underwriter met with PT to conduct ASAM, MSE, DUDIT assessments and to plan for discharge. PT was appropriate but focused on ways that he has been wronged and was difficult to redirect to complete assessments. All assessments were completed. PT reports that he is homeless but declined discharge planning. This casualty underwriter offered to assist PT in calling the [employer], PT declined. This casualty underwriter offered to assist with other housing options, PT declined.
--- NOTE | 2020-12-21 10:50 | CASEMGMT ---
Per Dawson, PCU charge, pt would like to speak with Berkley from [facility] program again at this time. Call to [facility] and Berkley is still up there seeing pt's. Berkley notified by CM that pt would like to speak with her again. April TRISTAN CM
[2020-12-21 12:34] LABS: Pathologist Review Reviewed
--- NOTE | 2020-12-21 13:14 | PCM.PN.HOSP ---
Documented by User: Alexis KILGORE 12/21/20 13:27 Subjective Subjective Patient is a 40-year-old male resting in bed, alert and oriented x3. Patient is visibly irritated about personal effects which were not brought to the hospital MR barbosa at the scene where patient was found overdosing. Besides agitation, patient denies any other associated symptoms. Denies chest pain, shortness of breath, palpitations, hemoptysis, sputum production, fever, chills, N/V/D. Objective Data Objective Data Vital Signs: Vital Signs Temp Pulse Resp BP Pulse Ox 98.1 F 112 H 18 118/78 96 12/21/20 08:00 12/21/20 11:00 12/21/20 08:00 12/21/20 08:00 12/21/20 08:00 Oxygen Delivery Method Room Air Weight: 143 lb 8.335 oz Body Mass Index (BMI) 23.1 Intake & Output: Intake and Output for Last 24 Hours 12/19/20 12/20/20 12/21/20 23:59 23:59 23:59 Intake Total 6400.83 / 6520.83 3512.5 / 3512.5 Output Total 1000 / 1450 850 / 850 Balance 5400.83 / 5070.83 2662.5 / 2662.5 Medical Nutrition Assessment Dietitian: Nutrition Therapy Diagnosis Start: 12/21/20 13:08 Freq: Status: Active Protocol: Document 12/21/20 13:09 RMA (Rec: 12/21/20 13:09 RMA [id number]) Nutrition Malnutrition Evidence of Malnutrition Exists No Clinical Problem Altered Nutrient-Related Laboratory Values Etiology r/t substance abuse Signs/Symptoms as evidenced by AST 624, and ALT 155. Status Active Problem Recommendation Dietitian Recommendations/Changes Continue regular/general diet for now, restrict diet as needed one intake better established at meals. ONS if intake declines at meals. Lab / Micro Data Result Diagrams: 12/21/20 05:10 12/21/20 05:10 Labs: Laboratory Results - last 24 hr 12/20/20 03:30: Diff Path Review Reviewed 12/20/20 14:16: Troponin I High Sens 141.4 H* 12/20/20 20:08: Sodium 138, Potassium 3.3 L, Chloride 108 H, Carbon Dioxide 24.0, Anion Gap 6, BUN 29 H, Creatinine 0.97, Estim Creat Clear Calc 90.44, Est GFR (MDRD) Af Amer 109, Est GFR (MDRD) Non-Af 90, BUN/Creatinine Ratio 29.9 H, Glucose 98, Calcium 7.6 L 12/21/20 05:10: WBC 9.6, RBC 3.98 L, Hgb 12.3 L, Hct 35.2 L, MCV 88.4, MCH 30.9, MCHC 34.9, RDW Std Deviation 37.2, RDW Coeff of Vaibhav 11.5 L, Plt Count 253, MPV 8.9, Immature Gran % (Auto) 0.300, Neut % (Auto) 59.4, Lymph % (Auto) 30.4, [place] % (Auto) 7.0, Eos % (Auto) 2.3, Baso % (Auto) 0.6, Absolute Neuts (auto) 5.7, Absolute Lymphs (auto) 2.93, Nucleated RBC % 0 12/21/20 05:10: Sodium 140, Potassium 3.5, Chloride 111 H, Carbon Dioxide 23.0, Anion Gap 6, BUN 18, Creatinine 0.71, Estim Creat Clear Calc 123.56, Est GFR (MDRD) Af Amer 157, Est GFR (MDRD) Non-Af 130, BUN/Creatinine Ratio 25.4 H, Glucose 104, Calcium 7.5 L, Phosphorus 1.8 L, Magnesium 2.0, Total Bilirubin 0.90, AST 624 H, ALT 155 H, Alkaline Phosphatase 82, Total Creatine Kinase 58124 H, Total Protein 6.2 L, Albumin 3.3, Globulin 2.9, Albumin/Globulin Ratio 1.1, TSH 1.87 Micro: Microbiology 12/20/20 10:20 Urine, Clean Catch Urine Culture - Preliminary Culture exhibits no growth. 12/20/20 04:04 Mucosa - Nose SARS-CoV-2 Antigen (Rapid) - Final Physical Exam Const alert, oriented x3 and no apparent distress HEENT head/scalp atraumatic, moist oral mucous membranes and oropharynx normal Head and Scalp: normocephalic Eyes EOMs intact bilaterally and conjunctivae normal Neck no lymphadenopathy, supple and no JVD Resp normal respiratory effort, no use of accessory muscles and clear to auscultation bilaterally Cardio no murmurs and no JVD Rate: tachycardic GI normal to inspection, nondistended, normoactive bowel sounds, soft to palpation and non-tender Extremity normal to inspection, full ROM and no clubbing, cyanosis or edema Skin no rashes or lesions noted, no wounds and skin turgor normal Neuro CN's II-XII intact bilaterally Psych Mood & Affect: anxious Assessment & Plan Assessment/Plan (1) Rhabdomyolysis: QUALIFIERS: Rhabdomyolysis type: non-traumatic Qualified Code(s): M62.82 - Rhabdomyolysis (2) KT (acute kidney injury): (3) Methamphetamine addiction: (4) Polysubstance (including opioids) dependence, daily use: (5) Sepsis: PLAN: Day 2: See subjective. Discharge planning: Patient likely to discharge home, when he behavioral services consulted for possible rehab admission. 1) acute rhabdomyolysis with prerenal KT CK elevated above 40,000 on admission, currently 33,000. Magnesium currently 2. Phosphorus currently 1.8. Elevated AST and ALT. Nephrology consulted. Plan; continue IV fluids, monitor electrolytes and kidney function 2) SIRS Resolved. No longer meets SIRS criteria, only remaining symptom is tachycardia. Tachypnea and leukocytosis have resolved. Lactate not elevated. Most likely from polysubstance abuse prior to admission. Urine culture demonstrates no growth. Blood cultures ordered/pending. Rapid Covid negative. Plan; continue to monitor. 3) polysubstance abuse, pseudoephedrine, methamphetamines and opioids. Subutex discontinued as patient will likely next go into acute withdrawal as he had only used drugs once since he has been incarcerated for the past 4 months. Plan; continue to monitor CIWA and COWS score, continue thiamine and folic acid supplementation. 4) acute encephalopathy due to polysubstance abuse. Resolved, patient is only now mildly agitated, however is alert and oriented x3. DVT prophylax - Lovenox Patient seen by Alexis Lugo PA-C, under the supervision of Dr. Gu. Documented by User: Dr. Lemuel Gu DO 12/21/20 19:53 Objective Data Lab / Micro Data Result Diagrams: 12/21/20 05:10 12/21/20 05:10 Charges/Coding Addendum Addendum: Patient was seen and examined independently of Alexis Lugo, he denies any symptoms of opiate or methamphetamine withdrawal, patient CPK is still elevated today, I had a brief discussion with nephrology who stated that until the patient's CPK gets below 10,000 that they would recommend administration of fluids. Patient was placed back on IV fluids this afternoon. I discontinued the patient's withdrawal medications as I do not really feel the patient is undergoing withdrawal at this time. On examination he appeared in good health and spirits. Vital signs as documented. Skin warm and dry and without overt rashes. Neck without JVD, neck was supple, trachea midline, thyroid was normal. Lungs clear bilaterally, normal air movement was noted. Heart exam notable for regular rhythm, normal sounds and absence of murmurs, rubs or gallops. Abdomen unremarkable and without evidence of organomegaly, masses, or abdominal aortic enlargement. Bowel sounds are present, abdomen is not distended. Extremities nonedematous, no cyanosis was noted, no clubbing was noted. Neuro: Cranial nerves II through XII are grossly intact, no focal motor deficits were noted, sensation to light touch and pinprick intact, motor exam 5/5 throughout. Psych: Patient is alert and oriented x3, he does not appear anxious or depressed, he does not appear agitated. I have reviewed Alexis Lugo's progress note including his medical assessment and plan of care and endorse it with the above additions. Visit Charges Inpatient E&M: 21096 Subs Hosp L2
[2020-12-21] MEDS: 0.9% Normal Saline 1,000 ML 150 ML IV (15:17)
--- NOTE | 2020-12-21 17:20 | PCM.PN.REN ---
Subjective Subjective No new complaints Objective Data Objective Data Vital Signs: Vital Signs Temp Pulse Resp BP Pulse Ox 97.4 F L 115 H 18 127/82 H 99 12/21/20 14:00 12/21/20 15:00 12/21/20 14:00 12/21/20 14:00 12/21/20 14:00 Oxygen Delivery Method Room Air Weight: 65.1 kg Body Mass Index (BMI) 23.1 Intake & Output: Intake and Output for Last 24 Hours 12/19/20 12/20/20 12/21/20 23:59 23:59 23:59 Intake Total 6400.83 / 6520.83 3512.5 / 3512.5 Output Total 1000 / 1450 850 / 850 Balance 5400.83 / 5070.83 2662.5 / 2662.5 Medical Nutrition Assessment Dietitian: Nutrition Therapy Diagnosis Start: 12/21/20 13:08 Freq: Status: Active Protocol: Document 12/21/20 13:09 RMA (Rec: 12/21/20 13:09 RMA [id number]) Nutrition Malnutrition Evidence of Malnutrition Exists No Clinical Problem Altered Nutrient-Related Laboratory Values Etiology r/t substance abuse Signs/Symptoms as evidenced by AST 624, and ALT 155. Status Active Problem Recommendation Dietitian Recommendations/Changes Continue regular/general diet for now, restrict diet as needed one intake better established at meals. ONS if intake declines at meals. Lab / Micro Data Result Diagrams: 12/21/20 05:10 12/21/20 05:10 Labs: Laboratory Results - last 24 hr 12/20/20 03:30: Diff Path Review Reviewed 12/20/20 20:08: Sodium 138, Potassium 3.3 L, Chloride 108 H, Carbon Dioxide 24.0, Anion Gap 6, BUN 29 H, Creatinine 0.97, Estim Creat Clear Calc 90.44, Est GFR (MDRD) Af Amer 109, Est GFR (MDRD) Non-Af 90, BUN/Creatinine Ratio 29.9 H, Glucose 98, Calcium 7.6 L 12/21/20 05:10: WBC 9.6, RBC 3.98 L, Hgb 12.3 L, Hct 35.2 L, MCV 88.4, MCH 30.9, MCHC 34.9, RDW Std Deviation 37.2, RDW Coeff of Vaibhav 11.5 L, Plt Count 253, MPV 8.9, Immature Gran % (Auto) 0.300, Neut % (Auto) 59.4, Lymph % (Auto) 30.4, [place] % (Auto) 7.0, Eos % (Auto) 2.3, Baso % (Auto) 0.6, Absolute Neuts (auto) 5.7, Absolute Lymphs (auto) 2.93, Nucleated RBC % 0 12/21/20 05:10: Sodium 140, Potassium 3.5, Chloride 111 H, Carbon Dioxide 23.0, Anion Gap 6, BUN 18, Creatinine 0.71, Estim Creat Clear Calc 123.56, Est GFR (MDRD) Af Amer 157, Est GFR (MDRD) Non-Af 130, BUN/Creatinine Ratio 25.4 H, Glucose 104, Calcium 7.5 L, Phosphorus 1.8 L, Magnesium 2.0, Total Bilirubin 0.90, AST 624 H, ALT 155 H, Alkaline Phosphatase 82, Total Creatine Kinase 25182 H, Total Protein 6.2 L, Albumin 3.3, Globulin 2.9, Albumin/Globulin Ratio 1.1, TSH 1.87 Micro: Microbiology 12/20/20 10:20 Urine, Clean Catch Urine Culture - Preliminary Culture exhibits no growth. 12/20/20 04:04 Mucosa - Nose SARS-CoV-2 Antigen (Rapid) - Final Radiography Diagnostic Testing: Radiology Impression Echocardiogram 12/20/20 11:25 Interpretation Summary Normal LV size. Left ventricular systolic function is normal. The estimated ejection fraction is 60 %. Stage 1 diastolic dysfunction. Structurally normal valves. Ordering Physician: Guille Chacko Referring Physician: RONALDO PCP Performed By: Geena Curiel, ENEIDA, RVT Physical Exam Narrative Alert awake oriented x 3 no obvious distress no pallor no icterus no JVD s1s2 no murmurs lungs clear abdomen soft no organomegaly no edema no cyanosis dominguez + Assessment & Plan Assessment/Plan (1) KT (acute kidney injury): PLAN: Resolved (2) Rhabdomyolysis: QUALIFIERS: Rhabdomyolysis type: non-traumatic Qualified Code(s): M62.82 - Rhabdomyolysis PLAN: In the setting of drug use. CPK still high. Continue fluids until CPKs less than 10,000 and then fluids can be stopped. Discussed with hospitalist
[2020-12-22] MEDS: 0.9% Normal Saline 1,000 ML 150 ML IV ×2 (00:10→06:38)
[2020-12-22 01:57] VITALS: BP 119/76; PULSE 97; RESP 16; TEMP 36.7; O2SAT 97
[2020-12-22 03:00] VITALS: PULSE 93
[2020-12-22 06:05] LABS: ALB/GLOB Ratio 1.1 RATIO (0.9-2.4); AST(SGOT) 336 U/L (15-37); Alanine Aminotransfer ALT/SGPT 150 U/L (16-61); Albumin, Serum 3.2 g/dL (3.2-5.0); Alkaline Phosphatase 67 U/L (45-117); Anion Gap 4 (5-15); BUN 9 mg/dL (7-18); BUN/Creat Ratio 17.9 RATIO (10-20); CPK Total, Creatine Kinase 12327 U/L (39-308); Calcium,Total 8.2 mg/dL (8.5-10.1); Chloride 111 mmol/L (98-107); EST Glomerular Filtration Rate 193 mL/min (>60); Est Glom Filt Rate - Afr Amer 234 mL/min (>60); Estimated Creatinine Clearance 175.45 ml/min; Globulin 2.9 g/dL (2.2-4.2); Glucose 93 mg/dL (74-106); Potassium 3.7 mmol/L (3.5-5.1); Protein, Total 6.1 g/dL (6.4-8.2); Sodium Level 142 mmol/L (136-145)
[2020-12-22 06:55] VITALS: O2SAT 97
[2020-12-22 07:13] VITALS: PULSE 86
[2020-12-22 08:00] VITALS: BP 140/92; PULSE 98; RESP 18; TEMP 36.7; O2SAT 100
--- NOTE | 2020-12-22 10:26 | PCM.DC ---
Discharge Instructions Diet Discharge Diet: No restrictions Activity Discharge Activity: Return to Normal Activity Weight Bearing Status: Weight bearing as tolerated Dressing / Incision Call your doctor if you observe: Fever of 101 or Higher, Numbness or Tingling, Shortness of breath, Dizziness, Chest pain, Increased palpitations (irregular heartbeat) and Calf discomfort Follow Up Care Please Follow Up With: Primary care provider When: Within the next two weeks. Test Results: Test results from this visit will be discussed in further detail at your follow-up appointment, if applicable. Discharge Plan Admission Admit Date/Time: 12/20/20 08:05 Primary Reason for Your Visit: Drug intoxification Attending Provider: Lemuel Gu Primary Care Provider: Care Physician,No Primary Consulting Providers: Deandre Pritchett Discharge Orders/Prescriptions Prescriptions: Continued clonidine HCl 0.1 mg Tablet 0.1 mg PO BID RF: 0 hydroxyzine pamoate [Vistaril] 50 mg Capsule 50 mg PO PRN (Reason: Anxiety) RF: 0 Referrals / Follow Up: Tabby Cummins MD [STAFF PHYSICIAN] - Within 2 Weeks (Referral to establish PCP care. ) Disposition Disposition (needs filled in before D/C Order can be placed): Home, Self Care
--- NOTE | 2020-12-22 13:15 | DS.PCM_ITS ---
Providers Date of Admission: 12/20/20 Primary Care Physician: No Primary Care Phys Consultations 12/20/20 08:13 Consult: Nephrology Routine Consulting Provider: Deandre Pritchett Reason for Consult: Rhabdomyolysis EMERGENT Consult: No MD Notified: Yes Date Notified: 12/21/20 Time Notified: 15:13 Method of Notification: already seeing Reason For Visit: RHABDOMYOLYSIS, KT, SUBSTANCE USE,INTOXICATION Diagnosis Discharge Diagnosis (1) KT (acute kidney injury): Status: Acute Code(s): N17.9 - Acute kidney failure, unspecified (2) Rhabdomyolysis: Status: Acute Code(s): M62.82 - Rhabdomyolysis Qualifiers: Rhabdomyolysis type: non-traumatic Qualified Code(s): M62.82 - Rhabdomyolysis Medications at Discharge Home Medications clonidine HCl 0.1 mg PO BID 12/20/20 hydroxyzine pamoate [Vistaril] 50 mg PO PRN 12/20/20 Hospital Course Summary of Care Provided Minutes Spent on Discharge: 35 Hospital Course: Disposition: Patient to be discharged home, no home health care needs or additional therapies identified. 1) acute rhabdomyolysis with prerenal KT CK currently 12,000, down from 40,000 at admission secondary to. Nephrologogy following; recommends that it currently available patient is stable for discharge. Plan; referred to Dr. Cummins to [facility] care, follow up when available. 2) SIRS Resolved. 3) polysubstance abuse, pseudoephedrine, methamphetamines and opioids. Addiction medicine met with patient, patient declined all outpatient services. 4) acute encephalopathy due to polysubstance abuse. Resolved, patient is only now mildly agitated, however is alert and oriented x3. Patient seen by Alexis Lugo PA-C, under the supervision of Dr. Gu. Medical Records Data Medical Nutrition Assessment Dietitian: Nutrition Therapy Diagnosis Start: 12/21/20 13:08 Freq: Status: Active Protocol: Document 12/21/20 13:09 RMA (Rec: 12/21/20 13:09 A [id number]) Nutrition Malnutrition Evidence of Malnutrition Exists No Clinical Problem Altered Nutrient-Related Laboratory Values Etiology r/t substance abuse Signs/Symptoms as evidenced by AST 624, and ALT 155. Status Active Problem Recommendation Dietitian Recommendations/Changes Continue regular/general diet for now, restrict diet as needed one intake better established at meals. ONS if intake declines at meals. Weight / BMI Weight Weight: 143 lb 8.335 oz Body Mass Index (BMI) 23.1 ABG / Lab / Microbiology Data Result Diagrams: 12/21/20 05:10 12/22/20 05:08 Laboratory: Laboratory Results - last 24 hr 12/22/20 05:08: Sodium 142, Potassium 3.7, Chloride 111 H, Carbon Dioxide 27.0, Anion Gap 4 L, BUN 9, Creatinine 0.50 L, Estim Creat Clear Calc 175.45, Est GFR (MDRD) Af Amer 234, Est GFR (MDRD) Non-Af 193, BUN/Creatinine Ratio 17.9, Glucose 93, Calcium 8.2 L, Total Bilirubin 0.70, AST 336 H, ALT 150 H, Alkaline Phosphatase 67, Total Creatine Kinase 11735 H, Total Protein 6.1 L, Albumin 3.2, Globulin 2.9, Albumin/Globulin Ratio 1.1 Microbiology: Microbiology 12/20/20 10:20 Urine, Clean Catch Urine Culture - Final Culture exhibits no growth. 12/20/20 08:00 Blood Culture (Wb) - Right Hand Blood Culture - Preliminary No growth in 48 hours. 12/20/20 07:50 Blood Culture (Wb) - Left Hand Blood Culture - Preliminary No growth in 48 hours. 12/20/20 04:04 Mucosa - Nose SARS-CoV-2 Antigen (Rapid) - Final Radiography Diagnostic Testing: Radiology Impression Echocardiogram 12/20/20 11:25 Interpretation Summary Normal LV size. Left ventricular systolic function is normal. The estimated ejection fraction is 60 %. Stage 1 diastolic dysfunction. Structurally normal valves. Ordering Physician: Guille Chacko Referring Physician: RONALDO PCP Performed By: Geena Curiel, ENEIDA, RVT D/C Instructions Discharge Diet: No restrictions Weight Bearing Status: Weight bearing as tolerated Call your doctor if you observe: Fever of 101 or Higher, Numbness or Tingling, Shortness of breath, Dizziness, Chest pain, Increased palpitations (irregular heartbeat) and Calf discomfort Please Follow Up With: Primary care provider When: Within the next two weeks. Meaningful Use Info Meaningful Use Diagnoses (Choose all that apply): None applicable Discharge Plan Admission Admit Date/Time: 12/20/20 08:05 Primary Reason for Your Visit: Drug intoxification Attending Provider: Lemuel Gu Primary Care Provider: Care Physician,No Primary Consulting Providers: Deandre Pritchett Discharge Orders/Prescriptions Prescriptions: Continued clonidine HCl 0.1 mg Tablet 0.1 mg PO BID RF: 0 hydroxyzine pamoate [Vistaril] 50 mg Capsule 50 mg PO PRN (Reason: Anxiety) RF: 0 Referrals / Follow Up: Tabby Cummins MD [STAFF PHYSICIAN] - Within 2 Weeks (Referral to establish PCP care. ) Disposition Disposition (needs filled in before D/C Order can be placed): Home, Self Care
[2020-12-22 13:59] VITALS: BP 136/91; PULSE 92; RESP 18; TEMP 36.7; O2SAT 96
--- NOTE | 2020-12-23 14:53 | CASEMGMT ---
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 Not able to complete call as patient does not have a phone.
== END 2020-12-22 15:19 | disposition home or self-care (01) | DRG 469 ==
LOC: ED 03:33 → PCU 09:24
PROVIDERS: Admitting Provider Internal Medicine; Emergency Provider Student in an Organized Health Care Education/Training Program; Visit Provider Internal Medicine
DX: N17.9 Acute kidney failure, unspecified (principal); M62.82 Rhabdomyolysis; T40.3X1A Poisoning by methadone, accidental (unintentional), initial encounter; T40.2X1A Poisoning by other opioids, accidental (unintentional), initial encounter; F15.20 Other stimulant dependence, uncomplicated; I10 Essential (primary) hypertension; F17.210 Nicotine dependence, cigarettes, uncomplicated; Z86.14 Personal history of Methicillin resistant Staphylococcus aureus infection; Y92.9 Unspecified place or not applicable
CPT/HCPCS: 36415; 70450; 71045; 72125; 80048; 80053; 80076; 80307; 81001; 82077; 82550; 82962; 83605; 83735; 84100; 84443; 84484; 85025; 85610; 87040; 87086; 87426; 93005; 93306; 97802; 99285; 99406; J7030; A4216

== ENCOUNTER 2020-12-26 06:38 | Emergency (ER) | payer MEDICAID, SELFPAY ==
[2020-12-20 08:59] VITALS: BMI 23.1
[2020-12-26 06:47] VITALS: BP 146/89; PULSE 132; RESP 18; TEMP 36.6; O2SAT 94; BMI 23.1
--- NOTE | 2020-12-26 07:03 | CT_ITS ---
STUDY: CT BRAIN WITHOUT CONTRAST REASON FOR EXAM: Male, 40 years old. injury RADIATION DOSAGE (If Supplied By Facility): CTDIvol = ( 44.99 ) mGy, DLP = ( 812.98 ) mGycm TECHNIQUE: Transaxial CT imaging of the brain was performed without administration of intravenous contrast material. Individualized dose optimization techniques were used for this CT. COMPARISON: 12/20/2020 CT head FINDINGS: Normal soft tissue structures. Normal calvarium. Normal size ventricles and extra-axial spaces for the patient''s age. Normal white matter tracts of the cerebral hemispheres. Normal basal ganglia and thalami. Normal brainstem. Normal cerebellum. There is no intracranial hemorrhage. There are no findings of an acute ischemic infarction. Normal visualized paranasal sinuses. CT/Brain/Head without Contrast IMPRESSION: No evidence of acute intracranial bleed, mass or ischemia. Electronically Signed: Jason Ratliff DO at 9:48 EDT , Service support ,
--- NOTE | 2020-12-26 07:04 | EX.ED.DYSGE1 ---
HPI History of Present Illness Chief Complaint: Alt LOC Informant: patient and EMS Onset/Context/Timing Onset: Today Narrative Narrative: Patient presents secondary to altered LOC. EMS reports they were called for an unresponsive male lying in the road. When they arrived on scene they tapped his foot he set up asking him what was going on. Patient does not know how he got to the road. Patient was recently admitted for drug overdose, rhabdomyolysis, acute renal injury. Patient at times thinks this is the same hospital visit from when he was recently here, and at other times describes being in an apartment last night. He does not know how he left the apartment. At this time patient just complains of being sore all over. No specific injury. [facility] Medical History Hypertension Substance abuse Home Medications NK 12/26/20 [History Last Taken Unknown] Allergy/AdvReac Type Severity Reaction Status Date / Time bee venom protein (honey bee) Allergy Anaphylaxis Verified 12/26/20 06:51 seasonal Allergy Other Uncoded 12/26/20 06:51 Family History Other Bipolar 1 disorder Social History Smoking Status: Current some day smoker tobacco type: cigarettes ROS ROS ED Constitutional Constitutional ED: Denies chills or fever(s) Eyes Eyes: Denies change in vision ENT ENT ED: Denies sore throat Cardiovascular Cardiovascular: Denies chest pain Respiratory/Chest Respiratory/Chest: Denies cough or dyspnea Gastrointestinal Gastrointestinal: Denies abdominal pain, diarrhea, nausea or vomiting Genitourinary Genitourinary ED: Denies dysuria Musculoskeletal Musculoskeletal: Reports myalgias; Denies back pain Integumentary Reports Abrasions and rash Neurologic Neurologic: Denies headache(s) or weakness Psychiatric Psychiatric: Denies anxiety or depression Allergic/Immunologic Allergic/Immunologic ED: Denies urticaria EXAM Physical Exam Const Vital Signs: 12/26/20 06:47 12/26/20 06:52 Temperature 97.8 F Temperature Source Temporal Pulse Rate 132 H Respiratory Rate 18 Respiratory Effort Normal Respiratory Pattern Normal Blood Pressure 146/89 H Blood Pressure Mean 108 Pulse Ox 94 Oxygen Delivery Method Room Air Positive unkempt General Appearance ED: unkempt HEENT HEENT Narrative: Abrasion to the posterior parietal region. Minimal tenderness. Neck supple Neck Narrative: No C-spine tenderness. Chest Wall inspection of chest normal and palpation of chest normal Resp normal respiratory effort and clear to auscultation bilaterally Cardio regular rhythm Rate: tachycardic GI non-tender Palpation: soft Back/Spine Back/Spine Narrative: No focal tenderness. Extremity Extremity Narrative: Moves all 4 extremities. Neuro no sensory deficits noted Sensorium / Orientation: alert Motor Exam: strength 5/5 throughout Psych Appearance: unkempt Attitude: agitated Skin Skin Narrative: Posterior scalp abrasion as above. Small abrasion over the anterior right knee. No bony tenderness MDM MDM MDM Narrative Medical decision making narrative: Patient had lab work and head CT ordered. Radiography Diagnostic Testing: Radiology Impression Brain CT 12/26/20 07:03 IMPRESSION: No evidence of acute intracranial bleed, mass or ischemia. Electronically Signed: Jason RatliffDO at 9:48 EDT , Service support , Treatment and Re-Evaluation Comments:: Really wanted to recheck his renal function and CK level. He is alert and been eating and drinking appropriately since he has been home from the hospital. I do feel it is okay to forego the blood work. I did get him to agree to undergo head CT. This returns unremarkable. Patient remains agitated and pacing in the room but he is alert and oriented x3. If he has a ride to come pick him up he will be discharged home. During the patient's recent hospital stay he did meet with 180 and patient reported no interest in detox. Discharge Plan Triage Chief Complaint: Alt LOC ED Provider: Koki Peraza Dx/Rx/DC Orders Clinical Impression: Closed head injury Instructions: ED Head Injury (Adult) Prescriptions: No Action NK RF: 0 Primary Care Provider: Care Physician,No Primary Referrals: Tabby Cummins MD [STAFF PHYSICIAN] - As Needed Care Physician,No Primary [Primary Care Provider] - Disposition Disposition: Home, Self Care
--- NOTE | 2020-12-26 07:18 | ED.RN ---
Patient refusing to sit in bed, get on gown, or have IV started. MD notified.
[2020-12-26 10:09] VITALS: PULSE 99; RESP 16; O2SAT 98
== END 2020-12-26 10:10 | disposition home or self-care (01) ==
PROVIDERS: Emergency Provider Emergency Medicine
DX: S00.01XA Abrasion of scalp, initial encounter (principal); X58.XXXA Exposure to other specified factors, initial encounter; Y93.89 Activity, other specified; Y92.9 Unspecified place or not applicable; Y99.9 Unspecified external cause status; I10 Essential (primary) hypertension; F17.210 Nicotine dependence, cigarettes, uncomplicated
CPT/HCPCS: 70450; 96360; 99285

== ENCOUNTER 2021-01-14 08:22 | Emergency (ER) | payer MEDICAID, SELFPAY ==
[2021-01-14 08:22] VITALS: BP 152/90; PULSE 130; RESP 16; TEMP 36.4; O2SAT 100; BMI 21.7
--- NOTE | 2021-01-14 08:43 | EX.ED.DYSGE1 ---
HPI History of Present Illness Chief Complaint: Bite Informant: patient Narrative Narrative: Patient is a 40-year-old male with a past medical history of IV drug abuse, hepatitis C who presents to the emergency department for abscess/cellulitis to right face and right low back. His symptoms have been present over the past 3 days. Has become very tender to the touch. He has not been taking anything for this. No known aggravating or relieving factors. No significant headache or neck stiffness. He denies any vision change or painful eye movements. The most of the swelling is right under the right lower eyelid. No discharge present. No fevers or chills. No abdominal pain or nausea/vomiting. [facility] Medical History Hypertension Substance abuse Home Medications cephalexin 500 mg PO Q6H 10 Days #40 cap 01/14/21 [Rx Last Taken Unknown] sulfamethoxazole-trimethoprim [Bactrim DS] 2 tab PO BID 10 Days #40 tab 01/14/21 [Rx Last Taken Unknown] Allergy/AdvReac Type Severity Reaction Status Date / Time bee venom protein (honey bee) Allergy Anaphylaxis Verified 01/14/21 08:24 seasonal Allergy Other Uncoded 01/14/21 08:24 Family History Other Bipolar 1 disorder Social History Smoking Status: Current every day smoker tobacco type: cigarettes ROS ROS ED Constitutional Constitutional ED: Denies chills or fever(s) Eyes Eyes: Denies change in vision ENT ENT ED: Denies epistaxis or rhinorrhea Cardiovascular Cardiovascular: Denies chest pain or palpitations Respiratory/Chest Respiratory/Chest: Denies cough or dyspnea Gastrointestinal Gastrointestinal: Denies abdominal pain, nausea or vomiting Musculoskeletal Musculoskeletal: Denies back pain or neck pain Integumentary Reports abscess and rash Neurologic Neurologic: Denies dizziness, headache(s) or weakness EXAM Physical Exam Const Vital Signs: 01/14/21 08:22 Temperature 97.6 F L Temperature Source Temporal Pulse Rate 130 H Respiratory Rate 16 Blood Pressure 152/90 H Blood Pressure Mean 110 Pulse Ox 100 Oxygen Delivery Method Room Air Positive well nourished and well developed General Appearance ED: well developed and NAD HEENT Reports head/scalp atraumatic Eyes PERRL and EOMs intact bilaterally Neck supple General: Negative for tenderness Chest Wall inspection of chest normal Resp normal respiratory effort and clear to auscultation bilaterally Auscultation: Negative for rales, rhonchi or wheezes Cardio regular rhythm and no murmurs Rate: tachycardic GI normal to inspection, nondistended, normoactive bowel sounds and non-tender Palpation: soft; Negative for guarding or rebound tenderness present Extremity normal to inspection General Extremety ED: Negative for edema or tenderness General Extremity: Negative for edema Neuro Sensorium / Orientation: alert Motor Exam: strength 5/5 throughout Psych mental status grossly normal Skin Skin Narrative: Abscess under the right eye involving the skin over the right maxilla and right lower eyelid. There is an area of erythema, induration just above the right buttock. No significant fluctuating abscess present at this site. MDM MDM MDM Narrative Medical decision making narrative: Patient presents the ED for cellulitis/abscess to the right face and right buttock. He does have a history of IV drug abuse. Verbal consent was obtained for needle aspiration of the face. Let was applied to the area for 15 minutes. The area was cleaned with alcohol. Using 18-gauge needle. A small amount of purulent/bloody drainage was able to be obtained. Patient tolerated the procedure well without any apparent complications. Wound was dressed with Band-Aid. He is advised to use warm compresses over the area. He will be started on Bactrim and Keflex. He does have a PCP to follow-up with and he is given a referral. He develops any painful eye movements, significant swelling, developing fever/chills he needs to return back to the emergency department for reevaluation. He understands and is agreeable this plan. Discharged home in stable condition. All questions were answered. Discharge Plan Triage Chief Complaint: Bite ED Provider: Joaquin Garcia Dx/Rx/DC Orders Clinical Impression: Abscess of face, Cellulitis of buttock Instructions: ED Abscess Incision And Drainage Prescriptions: New sulfamethoxazole-trimethoprim [Bactrim DS] 800-160 mg tablet 2 tab PO BID 10 Days Qty: 40 RF: 0 cephalexin 500 mg capsule 500 mg PO Q6H 10 Days Qty: 40 RF: 0 Primary Care Provider: Care Physician,No Primary Referrals: Clarence,Lemuel, DO [STAFF PHYSICIAN] - 3-5 Days Care Physician,No Primary [Primary Care Provider] - Disposition Disposition: Home, Self Care
[2021-01-14] MEDS: Lidocaine/Epi/Tetracaine 50 ML 1 APPLIC TOPICAL (09:14)
[2021-01-14 10:16] VITALS: RESP 16
== END 2021-01-14 10:17 | disposition home or self-care (01) ==
PROVIDERS: Emergency Provider Emergency Medicine
DX: L02.01 Cutaneous abscess of face (principal); L03.317 Cellulitis of buttock; I10 Essential (primary) hypertension; F17.210 Nicotine dependence, cigarettes, uncomplicated
CPT/HCPCS: 10060; 99282